=== PATIENT | female | born 2000 ===

== ENCOUNTER 2020-05-17 09:51 | Outpatient (REF) | payer MEDICAID, SELFPAY | END 2020-05-17 09:52 | disposition home or self-care (01) | LOC: HO.LAB 09:51 | PROVIDERS: Visit Provider Internal Medicine | DX: Z20.822 Contact with and (suspected) exposure to COVID-19 (principal) | CPT/HCPCS: 36415; C9803; U0003 ==

== ENCOUNTER 2020-05-17 10:01 | Emergency (ER) | payer MEDICAID, SELFPAY ==
[2020-05-17 10:15] VITALS: BP 119/57; PULSE 76; RESP 16; TEMP 37.1; O2SAT 99; BMI 29.9
--- NOTE | 2020-05-17 10:36 | PC.NURSE ---
TRIAGED AT BEDSIDE. AWAITING PROVIDER. HERE WITH COWORKER WITH SAME C/O.
--- NOTE | 2020-05-17 10:45 | PC.NURSE ---
SEEN BY PROVIDER AT THIS TIME
--- NOTE | 2020-05-17 17:36 | ED.GENADULT ---
HPI - General Adult General Chief complaint: Back Pain/Injury <ERICA Hernandez - Last Filed: 05/17/20 17:42> Stated complaint: neck pain <ERICA Hernandez - Last Filed: 05/17/20 17:42> Time Seen by Provider: 05/17/20 11:02 <ERICA Hernandez - Last Filed: 05/17/20 17:42> History of Present Illness HPI narrative: Patient complains of bilateral neck pain in both trapezius muscles and both sides of the neck, she woke up with it, there is no radiation of pain no trauma no injury no numbness no weakness no tingling no changes to bowel or bladder no fever <ERICA Hernandez Last Filed: 05/17/20 17:42> Related Data Home medications: Previous Rx's Medication Instructions Recorded cyclobenzaprine 5 mg PO TID PRN #10 tab 05/17/20 ibuprofen 600 mg PO Q6H PRN #20 tab 05/17/20 <ERICA Hernandez Last Filed: 05/17/20 17:42> Allergies/adverse reactions: Allergies Allergy/AdvReac Type Severity Reaction Status Date / Time No Known Allergies Allergy Verified 05/17/20 10:20 <ERICA Hernandez - Last Filed: 05/17/20 17:42> Review of Systems Review of Systems: Positive for neck pain Negatives are no fever no chills no dizziness no weakness no numbness no tingling no radiation of pain no headache no chest pain no shortness of breath <ERICA Hernandez - Last Filed: 05/17/20 17:42> [facility] Past Medical History Source: nursing notes reviewed <ERICA Hernandez - Last Filed: 05/17/20 17:42> Social History Social History: Social History Advance Directives: No Advance Directives Information Provided: No <ERICA Hernandez Last Filed: 05/17/20 17:42> Physical Exam Vital Signs: Vital Signs: Last Vital Signs Temp 98.7 F 05/17/20 10:15 Pulse 76 05/17/20 10:15 Resp 16 05/17/20 10:15 BP 119/57 L 05/17/20 10:15 Pulse Ox 99 05/17/20 10:15 Body Mass Index 29.9 <ERICA Hernandez - Last Filed: 05/17/20 17:42> Vital Signs: Last Vital Signs Temp 98.7 F 05/17/20 10:15 Pulse 76 05/17/20 10:15 Resp 16 05/17/20 10:15 BP 119/57 L 05/17/20 10:15 Pulse Ox 99 05/17/20 10:15 Body Mass Index 29.9 <Glen Aaron MD - Last Filed: 05/23/20 10:33> General appearance is no acute distress, comfortable and cooperative Head is normocephalic atraumatic The neck is supple however there is pain with lateral motion on either side there is tenderness to both left and right trapezius as well as left and right lateral neck areas, there is muscle spasm, there is no redness no warmth, there is no tenderness to any bony area The chest is clear to auscultation bilaterally with full symmetric breath sounds, chest wall is nontender The heart rate and rhythm regular no murmur Extremities is full range of motion x4, gait is normal, motor is 5/5 in negative turner apprentice strength in both hands and symmetrical Neuro no focal deficit motor 5/5 x4 in all extremities, gait is normal sensation is intact and symmetrical and verbal interaction is normal <ERICA Hernandez - Last Filed: 05/17/20 17:42> Course Course Course Narrative: Atraumatic muscle spasm in the neck, no trauma patient is treated for muscle pain of the neck <ERICA Hernandez - Last Filed: 05/17/20 17:42> I have reviewed the chart <Glen Aaron MD - Last Filed: 05/23/20 10:33> Discharge Plan Discharge Clinical Impression: Neck muscle strain <ERICA Hernandez - Last Filed: 05/17/20 17:42> Patient Disposition: Home, Self-Care <ERICA Hernandez Last Filed: 05/17/20 17:42> Additional Instructions: Pain should improve quickly If not getting better follow with primary care doctor Return to ER any time if worse <ERICA Hernandez - Last Filed: 05/17/20 17:42> Prescriptions: New ibuprofen 600 mg tablet 600 mg PO Q6H PRN (Reason: pain) Qty: 20 RF: 0 cyclobenzaprine 5 mg tablet 5 mg PO TID PRN (Reason: muscle spasm) Qty: 10 RF: 0 <ERICA Hernandez - Last Filed: 05/17/20 17:42> Stand Alone Forms: Work/School Release <ERICA Hernandez - Last Filed: 05/17/20 17:42> Interventions: ED Discharge Assessment Last Done: 05/17/20 11:11 <ERICA Hernandez - Last Filed: 05/17/20 17:42> Discharge Date/Time: 05/17/20 11:21 <ERICA Hernandez - Last Filed: 05/17/20 17:42>
== END 2020-05-17 11:21 | disposition home or self-care (01) ==
PROVIDERS: Emergency Provider Emergency Medicine; PCP Nurse Practitioner Primary Care
DX: S16.1XXA Strain of muscle, fascia and tendon at neck level, initial encounter (principal); M54.2 Cervicalgia; X58.XXXA Exposure to other specified factors, initial encounter; Y93.9 Activity, unspecified; Y92.9 Unspecified place or not applicable; Y99.9 Unspecified external cause status
CPT/HCPCS: 99283

== ENCOUNTER 2020-05-23 14:09 | Outpatient (REF) | payer MEDICAID, SELFPAY | END 2020-05-23 14:10 | disposition home or self-care (01) | LOC: HO.LAB 14:09 | PROVIDERS: Visit Provider Internal Medicine | DX: Z20.822 Contact with and (suspected) exposure to COVID-19 (principal) | CPT/HCPCS: 36415; C9803; U0003 ==

== ENCOUNTER 2020-06-07 10:26 | Emergency (ER) | payer MEDICAID, SELFPAY ==
--- NOTE | ~2020-06-07 | XR_ITS ---
EXAMINATION: BILATERAL TIBIA AND FIBULA. CLINICAL INFORMATION: Bilateral lower leg pain COMPARISON: None TECHNIQUE: 2 views each lower leg FINDINGS: LEFT LOWER LEG: There is no visible fracture, bony abnormality. No periosteal elevation or thickening. The soft tissues are normal. RIGHT LOWER LEG: There is no visible acute fracture, dislocation or subluxation. No bony erosive changes or periosteal thickening. The soft tissues are normal XR/XR tibia fibula LT 2V IMPRESSION: Unremarkable bilateral lower leg exam.
--- NOTE | ~2020-06-07 | US_ITS ---
EXAMINATION: US VENOUS ULTRASOUND WITH DOPPLER LOWER EXTREMITY, BILATERAL CLINICAL INFORMATION: Bilateral calf pain. COMPARISON: None TECHNIQUE: Ultrasound of the deep veins is performed from the hip to the calf with compression sonography and color and pulse Doppler assessment. Spectral analysis with color-flow imaging is performed. FINDINGS: RIGHT: There is normal venous compression and respiratory variation and augmented flow. The visualized common femoral vein, superficial femoral vein, profunda femoral vein, popliteal vein, and the trifurcation region shows no evidence of deep venous thrombosis. There is no popliteal cyst. LEFT: There is normal venous compression and respiratory variation and augmented flow. The visualized common femoral vein, superficial femoral vein, profunda femoral vein, popliteal vein, and the trifurcation region shows no evidence of deep venous thrombosis. There is no popliteal cyst. If the patient's symptoms persist, followup ultrasound in 5 days 7 days might be of value to exclude proximal propagation from a non-visualized calf vein. US/US venous duplex LE BI IMPRESSION: No evidence for deep venous thrombosis in the visualized veins of the bilateral lower extremities.
--- NOTE | ~2020-06-07 | XR_ITS ---
EXAMINATION: BILATERAL TIBIA AND FIBULA. CLINICAL INFORMATION: Bilateral lower leg pain COMPARISON: None TECHNIQUE: 2 views each lower leg FINDINGS: LEFT LOWER LEG: There is no visible fracture, bony abnormality. No periosteal elevation or thickening. The soft tissues are normal. RIGHT LOWER LEG: There is no visible acute fracture, dislocation or subluxation. No bony erosive changes or periosteal thickening. The soft tissues are normal XR/XR tibia fibula RT 2V IMPRESSION: Unremarkable bilateral lower leg exam.
[2020-06-07 10:47] VITALS: BP 136/84; PULSE 107; RESP 22; TEMP 37.2; O2SAT 97; BMI 29.0
[2020-06-07] MEDS: Ketorolac Tromethamine 15 MG/ML VIAL IVPUSH (11:51)
[2020-06-07] MEDS: Cyclobenzaprine HCl 5 MG TABLET PO (11:51)
[2020-06-07] MEDS: 0.9 % Sodium Chloride 1,000 ML 999 ML IV (11:51)
[2020-06-07 11:53] LABS: MANUAL DIFF FLAG NO
[2020-06-07 11:55] LABS: Basophils Percent Auto 0.3 % (0-2); Eosinophils Percent Auto 0.1 % (0-4); Hematocrit 38.8 % (37-47); Imm Gran Abs Auto 0.02 X10*3/uL (0.00-0.03); Imm Gran Pct Auto 0.2 % (0.0-0.4); Lymphocytes Absolute Auto 3.7 X10*3/uL (1.2-4.9); Lymphocytes Percent Auto 37.1 % (20-40); Mean Corpuscular HGB Conc 33.5 g/dl (31.0-35.0); Mean Corpuscular Hemoglobin 30.2 pg (27.0-33.0); Mean Platelet Volume 9.1 fL (9.4-12.3); Monocytes Absolute Auto 0.5 X10*3/uL (0.1-1.2); Monocytes Percent Auto 5.4 % (2-11); Neutrophils Absolute Auto 5.7 X10*3/uL (2.0-8.3); Neutrophils Percent Auto 56.9 % (45-73); Platelet Count 289 X10*3/uL (160-400); Red Blood Count 4.31 X10*6/uL (4.20-5.50); Red Cell Distribution Width 12.1 % (11.0-16.0)
[2020-06-07 12:01] LABS: INTERNATIONAL NORM RATIO 1.2 (0.9-1.1); Prothrombin Time 14.6 SEC (10.8-13.0)
--- NOTE | 2020-06-07 12:01 | ED.EXTPRO ---
HPI - Extremity Problem General Chief complaint: Extremity Problem Stated complaint: juan leg pain Source: patient Mode of arrival: ambulatory Limitations: no limitations History of Present Illness HPI Narrative: Patient presents to ED for bilateral leg pain that occurred after work. Patient states pain in both legs described as 10/10 and is painful to walk. 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 Patient denies any blunt trauma to lower extremities. Patient denies any swelling of lower extremities. Patient denies being on control pills. Patient denies any chest pain, shortness of breath, recent trauma, recent surgery, or any chest pain on inspiration. Patient denies coughing up blood. Related Data Previous Rx's Medication Instructions Recorded cyclobenzaprine 5 mg PO TID PRN #10 tab 05/17/20 ibuprofen 600 mg PO Q6H PRN #20 tab 05/17/20 cyclobenzaprine 10 mg PO TID PRN #15 tab 06/07/20 naproxen 500 mg PO BID PRN #20 tab 06/07/20 Allergies Allergy/AdvReac Type Severity Reaction Status Date / Time No Known Allergies Allergy Verified 05/17/20 10:20 Review of Systems Review of Systems: Yes all other systems are reviewed and are negative Constitutional: Constitutional: Reports as per HPI and Reports no additional constitutional complaints Eyes: Eyes: Reports as per HPI and Reports no additional eye complaints ENT: Reports system reviewed and no additional complaints, except as documented and Reports as per HPI Cardiovascular: Cardiovascular: Reports as per HPI and Reports no additional cardiovascular complaints Respiratory: Respiratory: Reports as per HPI and Reports no additional respiratory complaints Gastrointestinal: Gastrointestinal: Reports as per HPI and Reports no additional gastrointestinal complaints Genitourinary: Genitourinary: Reports no additional female genitourinary complaints and Reports as per HPI Musculoskeletal: Musculoskeletal: Reports no additional musculoskeletal complaints and Reports as per HPI Comments: Positive for lower extremity pain Neurologic: Reports system reviewed and no additional complaints, except as documented and Reports as per HPI Psychiatric: Psychiatric: Reports no additional psychiatric complaints and Reports as per HPI [facility] Past Medical History Medical History (Updated 06/07/20 @ 15:30 by ERICA Falcon) No known health problems Social History Social History Smoking Status: Unknown if ever smoked Use of substances other than those prescribed or required for medical reasons: Unknown Advance Directives: No Advance Directives Information Provided: No Physical Exam Vital Signs: Vital Signs: Last Vital Signs Temp 99.0 F 06/07/20 10:47 Pulse 70 06/07/20 15:00 Resp 18 06/07/20 15:00 BP 114/67 06/07/20 15:00 Pulse Ox 100 06/07/20 15:00 Body Mass Index 29.0 Const: General: cooperative, healthy appearing, comfortable, no acute distress, well developed, alert, awake and Physically active Orientation/consciousness: patient oriented x3 HENMT: Head: Yes normal to inspection, Yes No palpable skull fracture present, Yes normocephalic, Yes atraumatic and No abrasion Eyes: General: appearance normal, both eyes and all related structures Neck: Neck: Yes normal visual inspection, Yes full ROM, Yes no lymphadenopathy, Yes no meningeal signs, Yes trachea midline, Yes supple and No tender Chest: Chest palpation & inspection: normal inspection of the chest and normal palpation of entire chest wall Cardio: Jugular venous distension: no JVD Heart sounds: S1 normal heart sound present and S2 normal heart sound present GI: Inspection: Yes normal to inspection and No abdominal wall ecchymosis Palpation (GI): Soft to palpation, not firm, nontender, no guarding and not rigid : General: No CVA tenderness and Yes no CVA tenderness Back/Spine/Pelvis: Back: no CVA tenderness, No CVA tenderness and No back tenderness Skin: General skin exam: no rashes or lesions noted and elasticity normal Neuro: General: patient oriented x3, no meningeal signs and CN's II-XI intact bilaterally Cranial nerves: Yes CN's II-XII intact bilaterally Extrem: Other: Bilateral lower extremity: Negative for any swelling, pitting edema, redness, nodules, coldness, hot skin, bluish discoloration of toes, wounds, deformities, or ulcers. Positive for bilateral calf pain and anterior tibia fibular pain. Pain seemed out of proportion. Neuro/motor exam intact. Vascular exam is intact. Psych: Appearance: grossly normal, well kempt and not disheveled Course Course Course Narrative: Sent CPK to rule out rhabdomyolysis due to patient's pain being out of proportion and patient standing on her feet for 10 hours for shift. Also was sent for bilateral Doppler. Also check electrolytes make sure there is no signs of deficiency of electrolytes causing cramping legs Reevaluation(s) Reevaluation #1: Patient bilateral x-rays negative for any fractures. Patient is not in any rhabdomyolysis. CPK only 183. Electrolytes are normal including magnesium. Waiting for results of bilateral lower extremity ultrasound. Time: 11:46 Reevaluation #2: Patient lower extremity came back negative for any blood clots. Patient will be discharged as leg pain. History physical exam and diagnostic does not indicate DVT, cellulitis, arterial occlusion, erythema nosodum, and or fractures. Also negative for rhabdomyolysis. Time: 15:26 MDM - Extremity (Nontraumatic) MDM Narrative Medical decision making narrative: Bilateral leg pain Lab Data Result diagrams: 06/07/20 11:46 06/07/20 11:46 Labs: Lab Results 06/07/20 06/07/20 06/07/20 Range/Units 11:46 11:46 11:46 WBC 10.0 (4.8-10.8) X10*3/uL RBC 4.31 (4.20-5.50) X10*6/uL Hgb 13.0 (12.0-16.0) g/dl Hct 38.8 (37-47) % MCV 90.0 (80-98) fL MCH 30.2 (27.0-33.0) pg MCHC 33.5 (31.0-35.0) g/dl RDW 12.1 (11.0-16.0) % Plt Count 289 (160-400) X10*3/uL MPV 9.1 L (9.4-12.3) fL Immature Gran % (Auto) 0.2 (0.0-0.4) % Neut % (Auto) 56.9 (45-73) % Lymph % (Auto) 37.1 (20-40) % [place] % (Auto) 5.4 (2-11) % Eos % (Auto) 0.1 (0-4) % Baso % (Auto) 0.3 (0-2) % Lymph # (Auto) 3.7 (1.2-4.9) X10*3/uL [place] # (Auto) 0.5 (0.1-1.2) X10*3/uL Eos # (Auto) 0.0 (0.0-0.4) X10*3/uL Baso # (Auto) 0.0 (0.0-0.2) X10*3/uL Abs Immat Gran (auto) 0.02 (0.00-0.03) X10*3/uL Absolute Neuts (auto) 5.7 (2.0-8.3) X10*3/uL Absolute Nucleated RBC 0.000 (0.0-0.012) X10*3/uL Nucleated RBC % (auto) 0.0 (0.0-0.2) /100WBC PT 14.6 H (10.8-13.0) SEC INR 1.2 H (0.9-1.1) APTT 35.9 (24.1-38.0) SEC Sodium 141 (135-145) mmol/L Potassium 4.0 (3.3-5.1) mmol/L Chloride 105 (96-108) mmol/L Carbon Dioxide 27 (22-29) mmol/L Anion Gap 13 (12-20) BUN 13 (9-16) mg/dL Creatinine 0.79 (0.5-1.4) mg/dL Estim Creat Clear Calc 122.3 Estimated GFR > 60 Random Glucose 84 (60-115) mg/dL Calcium 10.0 (8.4-10.2) mg/dL Magnesium 2.0 (1.6-2.6) mg/dL Total Bilirubin 0.8 (0.0-1.0) mg/dL AST 19 (5-31) U/L ALT 18 (0-31) U/L Alkaline Phosphatase 50 (39-117) U/L Total Creatine Kinase 183 H (26-140) U/L Total Protein 8.1 H (6.5-8.0) g/dL Albumin 4.8 (3.5-5.0) g/dL Discharge Plan Discharge Clinical Impression: Bilateral leg pain Patient Disposition: Home, Self-Care Instructions: Leg Pain (ED) Additional Instructions: Return to the ED immediately no swelling of lower extremity, redness, warmth, coolness bluish discoloration of toes, chest pain, shortness of breath, fever, chills, or any other concerning symptoms. Prescriptions: New naproxen 500 mg tablet 500 mg PO BID PRN (Reason: pain) Qty: 20 RF: 0 cyclobenzaprine 10 mg tablet 10 mg PO TID PRN (Reason: pain) Qty: 15 RF: 0 No Action ibuprofen 600 mg tablet 600 mg PO Q6H PRN (Reason: pain) Qty: 20 RF: 0 cyclobenzaprine 5 mg tablet 5 mg PO TID PRN (Reason: muscle spasm) Qty: 10 RF: 0 Referrals: Lisa Sam CARE MANAGEMENT COORDINATOR [Primary Care Provider] - 2 days (Chronic leg pain exacerbation. X-rays negative for fracture. Ultrasound negative for DVT. Labs negative for rhabdomyolysis) Stand Alone Forms: Work/School Release Print Language: Iranian
[2020-06-07 12:04] LABS: Partial Thromboplastin Time 35.9 SEC (24.1-38.0)
[2020-06-07 12:26] LABS: Alanine Aminotransferase 18 U/L (0-31); Albumin Level 4.8 g/dL (3.5-5.0); Alkaline Phosphatase 50 U/L (39-117); Anion Gap 13 (12-20); Aspartate Amino Transferase 19 U/L (5-31); Bilirubin Total 0.8 mg/dL (0.0-1.0); Blood Urea Nitrogen 13 mg/dL (9-16); Carbon Dioxide 27 mmol/L (22-29); Chloride 105 mmol/L (96-108); Creatinine Clr Calc Pharmacy 122.3; Estimated Glomerular Filt Rate > 60; Glucose Random 84 mg/dL (60-115); Sodium 141 mmol/L (135-145); Total Protein 8.1 g/dL (6.5-8.0)
--- NOTE | 2020-06-07 14:00 | PC.NURSE ---
Pt transported to Ultrasound
[2020-06-07 15:00] VITALS: BP 114/67; PULSE 70; RESP 18; O2SAT 100
--- NOTE | 2020-06-07 15:00 | PC.NURSE ---
Pt returned from ultra sound.
== END 2020-06-07 15:51 | disposition home or self-care (01) ==
PROVIDERS: Physician Assistant; Emergency Provider Internal Medicine; PCP Nurse Practitioner Primary Care
DX: M79.605 Pain in left leg (principal); M79.604 Pain in right leg; Z79.899 Other long term (current) drug therapy
CPT/HCPCS: 36415; 73590; 80053; 82550; 83735; 85025; 85610; 85730; 93970; 96361; 96374; 99284; J1885

== ENCOUNTER 2021-04-01 10:05 | Emergency (ER) | payer MEDICAID, SELFPAY ==
--- NOTE | ~2021-04-01 | XR_ITS ---
EXAMINATION: XR FOOT, RIGHT CLINICAL INFORMATION: Pain right foot COMPARISON: None TECHNIQUE: AP, lateral, and oblique views of the right foot. FINDINGS: The bones and soft tissues are normal. No fracture. Alignment is anatomic. Joint spaces are maintained. XR/XR foot RT 2V IMPRESSION: Unremarkable right foot exam.
[2021-04-01 11:00] VITALS: BP 109/67; PULSE 83; RESP 18; TEMP 35.9; O2SAT 100; BMI 31.3
--- NOTE | 2021-04-01 11:37 | ED_ITS ---
HPI - Extremity Problem General Chief complaint: Extremity Problem Stated complaint: r foot pain Time Seen by Provider: 04/01/21 11:37 Source: patient Mode of arrival: ambulatory Limitations: no limitations History of Present Illness HPI Narrative: Patient has had increasing pain to her foot and developed a bump to the base of her first Metarsal phylangeal joint. Complaint: extremity pain Onset (ago): minute(s) Pain Consistency: constant Location: right Quality: burning Exacerbating factors: walking Related Data Previous Rx's Medication Instructions Recorded cyclobenzaprine 5 mg tablet 5 mg PO TID PRN #10 tab 05/17/20 ibuprofen 600 mg tablet 600 mg PO Q6H PRN #20 tab 05/17/20 cyclobenzaprine 10 mg tablet 10 mg PO TID PRN #15 tab 06/07/20 naproxen 500 mg tablet 500 mg PO BID PRN #20 tab 06/07/20 naproxen 500 mg tablet (Naprosyn) 500 mg PO BID #20 tab 04/01/21 Allergies Allergy/AdvReac Type Severity Reaction Status Date / Time No Known Allergies Allergy Verified 05/17/20 10:20 Review of Systems Constitutional: Constitutional: Reports no additional constitutional complaints Eyes: Eyes: Reports no additional eye complaints ENT: Denies dizziness Cardiovascular: Cardiovascular: Reports no additional cardiovascular complaints Respiratory: Respiratory: Reports as per HPI Gastrointestinal: Gastrointestinal: Reports no additional gastrointestinal complaints Genitourinary: Genitourinary: Reports no additional female genitourinary complaints Musculoskeletal: Musculoskeletal: Reports no additional musculoskeletal complaints Integumentary/Breasts: Skin/Breast: Denies rash Neurologic: Reports system reviewed and no additional complaints, except as documented, Denies dizziness and Denies Sensory deficit (Neuro) Psychiatric: Psychiatric: Denies anxiety [facility] Past Medical History Medical History No known health problems Social History Social History Advance Directives: No Advance Directives Information Provided: No Physical Exam Vital Signs: Vital Signs: Last Vital Signs Temp 96.6 F L 04/01/21 11:00 Pulse 83 04/01/21 11:00 Resp 18 04/01/21 11:00 BP 109/67 04/01/21 11:00 Pulse Ox 100 04/01/21 11:00 BMI result Body Mass Index 31.3 Const: General: healthy appearing Nutritional Appearance: average body habitus Orientation/consciousness: oriented to person and patient oriented x3 Limitations: no limitations HENMT: Head: Yes normal to inspection Ears: external ears normal General nose exam: Normal external nose present Mouth: Normal oral and palatal mucosa present and oropharynx normal Throat: Yes posterior oropharynx normal Eyes: General: appearance normal, both eyes and all related structures Neck: Other: supple Neck: Yes normal visual inspection Chest: Chest palpation & inspection: normal inspection of the chest Resp: Auscultation: clear to auscultation bilaterally Cardio: Jugular venous distension: no JVD Rate: regular rate Rhythm: regular rhythm Heart sounds: S1 normal heart sound present and S2 normal heart sound present GI: Inspection: Yes normal to inspection Palpation (GI): Soft to palpation, nontender and No hepatosplenomegaly present Auscultation: normal bowel sounds : General: Yes no CVA tenderness Back/Spine/Pelvis: Back: no CVA tenderness Skin: General skin exam: no rashes or lesions noted Neuro: General: oriented to person and patient oriented x3 Cranial nerves: Yes CN's II-XII intact bilaterally Motor exam (neuro): 5/5 motor strength present throughout Sensory Exam: No Sensory deficit (Neuro) Extrem: Other: firm hard swelling at the base of the first matatarsal and phylangeal joint, consistent with bunion. Psych: Appearance: grossly normal Course Reevaluation(s) Reevaluation #1: will refer patient to podiatry for bunion surgery Time: 11:46 MDM - Extremity (Nontraumatic) Imaging Data foot xray: Radiologist's impression: no fracture or jose deformity Discharge Plan Discharge Clinical Impression: Bunion of great toe of right foot Patient Disposition: Home, Self-Care Instructions: Bunion (ED) Prescriptions: New naproxen [Naprosyn] 500 mg tablet 500 mg PO BID Qty: 20 RF: 0 No Action naproxen 500 mg tablet 500 mg PO BID PRN (Reason: pain) Qty: 20 RF: 0 cyclobenzaprine 10 mg tablet 10 mg PO TID PRN (Reason: pain) Qty: 15 RF: 0 ibuprofen 600 mg tablet 600 mg PO Q6H PRN (Reason: pain) Qty: 20 RF: 0 cyclobenzaprine 5 mg tablet 5 mg PO TID PRN (Reason: muscle spasm) Qty: 10 RF: 0 Referrals: Alverto Carlson [Physician] - 1 week Interventions: ED Discharge Assessment Last Done: 04/01/21 12:08 Discharge Date/Time: 04/01/21 12:09
== END 2021-04-01 12:09 | disposition home or self-care (01) ==
PROVIDERS: Emergency Provider Emergency Medicine; PCP Nurse Practitioner Primary Care
DX: M21.611 Bunion of right foot (principal); M79.671 Pain in right foot
CPT/HCPCS: 73620; 99283

== ENCOUNTER 2021-04-25 12:46 | Emergency (ER) | payer MEDICAID, SELFPAY ==
[2021-04-25 13:04] VITALS: BP 130/70; BP 156/80; PULSE 105; PULSE 96; RESP 18; TEMP 37.5; O2SAT 98; BMI 29.9
--- NOTE | 2021-04-25 13:24 | ED.URI ---
HPI - URI/Sore Throat General Chief Complaint: Headache Stated Complaint: BRICE,RECENT NEGATIVE COVID TEST PER EMS Time Seen by Provider: 04/25/21 13:17 Source: patient Mode of arrival: EMS Limitations: no limitations History of Present Illness HPI Narrative: unvaccinated home rapid test negative 2 days ago has not taken any OTC medications MD elicited complaint: fever, nasal congestion and other (body aches) Onset (ago): day(s) (4) Consistency: progressively worsening Severity: moderate Description of mucous: clear Exacerbating factors: nothing Relieving factors: nothing Context: other (not vaccinated) Associated symptoms: fever, chills, myalgias, headache, nasal congestion and cough Treatments prior to arrival: none Related Data Previous Rx's Medication Instructions Recorded cyclobenzaprine 5 mg tablet 5 mg PO TID PRN #10 tab 05/17/20 ibuprofen 600 mg tablet 600 mg PO Q6H PRN #20 tab 05/17/20 cyclobenzaprine 10 mg tablet 10 mg PO TID PRN #15 tab 06/07/20 naproxen 500 mg tablet 500 mg PO BID PRN #20 tab 06/07/20 naproxen 500 mg tablet (Naprosyn) 500 mg PO BID #20 tab 04/01/21 ibuprofen 600 mg tablet 600 mg PO Q6H PRN #30 tab 04/25/21 ondansetron 4 mg disintegrating 4 mg PO Q8H PRN #20 tab 04/25/21 tablet Allergies Allergy/AdvReac Type Severity Reaction Status Date / Time No Known Allergies Allergy Verified 04/25/21 13:11 Review of Systems Review of Systems: Constitutional : positive Fever, positive Chills, positive fatigue, positive Malaise ENT/Mouth : positive sore throat, positive runny nose Eyes: No Discharge Cardiovascular : No Chest Pain, No SOB Respiratory : No Cough, No Sputum Gastrointestinal : No Nausea, No Vomiting, No Diarrhea Genitourinary : No Dysuria, No Urinary Frequency Musculoskeletal : positive Myalgia Skin : No rash Neuro : pos Headache PMFSH Past Medical History Attestation statement: The following information was validated with the patient. Medical History No known health problems Social History Social History (Updated 04/25/21 @ 13:35 by Georgina Dipesh, DO) Patient Tobacco Use Status: Current everyday Tobacco user Advance Directives: No Advance Directives Information Provided: No Patient : No Physical Exam Vital Signs: Vital Signs: Last Vital Signs Temp 99.5 F 04/25/21 13:04 Pulse 96 04/25/21 13:04 Resp 18 04/25/21 13:04 BP 130/70 04/25/21 13:04 Pulse Ox 98 04/25/21 13:04 BMI result Body Mass Index 29.9 Appearance: Alert. Oriented X3. No acute distress. Anxious Eyes: Pupils equal, round and reactive to light. ENT: Pharynx normal. Neck: Normal inspection. Neck supple. CVS: Normal heart rate and rhythm. Pulses normal. Respiratory: No respiratory distress. Breath sounds normal has mild bronchospastic cough Abdomen: Soft and non-tender. Skin: Skin warm and dry. Normal skin color. Normal skin turgor. Extremities: No lower extremity edema. No calf ttp Neuro: Oriented X 3. No motor deficit. No sensory deficit. MDM - URI/Sore Throat MDM Narrative Medical decision making narrative: 20 yo female unvaccinated here with headaches, viral syndrome, bronchospastic cough, clear lungs no hypoxia 99% on RA - did not take OTC medications - likely COVID. Can be managed as outpatient Discharge Plan Discharge Clinical Impression: COVID-19 Patient Disposition: Home, Self-Care Instructions: COVID-19 (Coronavirus Disease 2019) (ED) Additional Instructions: return to ED for any worsening symptoms or concerns if you are so short of breath you cannot walk to your bathroom please see medical care tylenol and motrin for fevers for cough or wheezing use 2 puffs on INH every 4 hours as needed Prescriptions: New ibuprofen 600 mg tablet 600 mg PO Q6H PRN (Reason: pain) Qty: 30 RF: 0 ondansetron 4 mg tablet,disintegrating 4 mg PO Q8H PRN (Reason: nausea and vomiting) Qty: 20 RF: 0 No Action naproxen 500 mg tablet 500 mg PO BID PRN (Reason: pain) Qty: 20 RF: 0 cyclobenzaprine 10 mg tablet 10 mg PO TID PRN (Reason: pain) Qty: 15 RF: 0 ibuprofen 600 mg tablet 600 mg PO Q6H PRN (Reason: pain) Qty: 20 RF: 0 cyclobenzaprine 5 mg tablet 5 mg PO TID PRN (Reason: muscle spasm) Qty: 10 RF: 0 naproxen [Naprosyn] 500 mg tablet 500 mg PO BID Qty: 20 RF: 0 Stand Alone Forms: Work/School Release
[2021-04-25 13:34] LABS: COVID-19 Test Positive (Negative); IDNOW Serial# 9DD0AD1C
[2021-04-25] MEDS: Albuterol Sulfate 90 MCG 8 GM INHALER 2 PUFF INHALE (13:38)
[2021-04-25 13:39] VITALS: PULSE 101; RESP 20; O2SAT 99
[2021-04-25] MEDS: Ibuprofen 600 MG TABLET PO (13:46)
[2021-04-25] MEDS: Acetaminophen 325 MG TABLET 650 MG PO (13:46)
[2021-04-25] MEDS: Ondansetron ODT 4 MG TAB.RAPDIS TRANSLINGU (13:47)
== END 2021-04-25 13:48 | disposition home or self-care (01) ==
PROVIDERS: Emergency Provider Emergency Medicine; PCP Nurse Practitioner Primary Care
DX: U07.1 COVID-19 (principal); R51.9 Headache, unspecified; M79.10 Myalgia, unspecified site; R05.9 Cough, unspecified; F17.200 Nicotine dependence, unspecified, uncomplicated; Z71.6 Tobacco abuse counseling; Z79.899 Other long term (current) drug therapy
CPT/HCPCS: 36415; 87635; 94640; 99283; 99284

== ENCOUNTER 2021-06-17 00:10 | Emergency (ER) | payer MEDICAID, SELFPAY ==
[2021-06-17 00:18] VITALS: BP 140/80; PULSE 91; RESP 16; TEMP 36.7; O2SAT 99; BMI 26.6
--- NOTE | 2021-06-17 00:52 | ED_ITS ---
HPI - Anxiety General Chief Complaint: ETOH/Substance Use Stated Complaint: DRUG USE Source: patient Mode of arrival: EMS Limitations: no limitations History of Present Illness HPI narrative: 20-year-old female presents via EMS for taking too many mushrooms. MD complaint: anxiety Onset (ago): hour(s) (Within the hour of arrival) Severity: mild Quality: constant Place: home History of similar episodes: No Provoking factors: other (Mushroom use) Relieving factors: nothing Exacerbating factors: other (Drug use) Associated symptoms: denies other symptoms Related Data Previous Rx's Medication Instructions Recorded cyclobenzaprine 5 mg tablet 5 mg PO TID PRN #10 tab 05/17/20 ibuprofen 600 mg tablet 600 mg PO Q6H PRN #20 tab 05/17/20 cyclobenzaprine 10 mg tablet 10 mg PO TID PRN #15 tab 06/07/20 naproxen 500 mg tablet 500 mg PO BID PRN #20 tab 06/07/20 naproxen 500 mg tablet (Naprosyn) 500 mg PO BID #20 tab 04/01/21 ibuprofen 600 mg tablet 600 mg PO Q6H PRN #30 tab 04/25/21 ondansetron 4 mg disintegrating 4 mg PO Q8H PRN #20 tab 04/25/21 tablet Allergies Allergy/AdvReac Type Severity Reaction Status Date / Time No Known Allergies Allergy Verified 04/25/21 13:11 Review of Systems Review of Systems: Constitutional: No Fever, No Chills ENT/Mouth: No sore throat, No Rhinorrhea Eyes: No Eye Pain, No Swelling, No Redness Cardiovascular: No Chest Pain, No SOB Respiratory: No Cough, No Sputum Gastrointestinal: No Nausea, No Vomiting, No Diarrhea, No abdominal Pain Genitourinary: No Dysuria, No Hematuria Musculoskeletal: No joint pain, No Myalgias, No Joint Swelling Skin: No Skin Lesions, No rash Neuro: No Weakness, No Numbness, No Loss of Consciousness, No Dizziness, No Headache Psych: Positive hallucinogenic use, positive Anxiety, No Depression, No SI/HI/AH/VH Heme/Lymph: No Bruising, No Bleeding,No Lymphadenopathy Endocrine: No Polyuria, No Polydipsia Yes all other systems are reviewed and are negative [facility] Past Medical History Attestation statement: The following information was validated with the patient. Source: old records reviewed Medical History No known health problems Social History Social History Patient Tobacco Use Status: Current everyday Tobacco user Patient : No Physical Exam Vital Signs: Vital Signs: Last Vital Signs Temp 98.0 F 06/17/21 00:18 Pulse 91 06/17/21 00:18 Resp 16 06/17/21 00:18 BP 140/80 H 06/17/21 00:18 Pulse Ox 99 06/17/21 00:18 BMI result Body Mass Index 26.6 Appearance: Alert. Oriented X3. Mild emotional distress. Eyes: Pupils equal, round and reactive to light. ENT: Pharynx normal. Neck: Normal inspection. Neck supple. CVS: Normal heart rate and rhythm. Pulses normal. Respiratory: No respiratory distress. Breath sounds normal. Abdomen: Soft and nontender. Skin: Skin warm and dry. Normal skin color. Normal skin turgor. Extremities: No lower extremity edema. Gait well-balanced well coordinated. Neuro: No motor deficit. No sensory deficit. Cranial nerves 2-12 intact. Course Course Course Narrative: 20-year-old female presents via EMS for anxiety related to hallucinogenic mushroom use. She stated that she used too many mushrooms, this is the 1st time ever using them. Patient does not have any other complaints at this time. Also does not have a sober ride home. Plan of care is to metabolize to freedom. Physician observation started at this time MDM - Anxiety MDM Narrative Medical decision making narrative: Hallucinogenic mushroom use Differential Diagnosis Differential diagnosis: Likely acute anxiety Medical Records Attestation: I reviewed the patient's medical records. 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 Thank you for choosing this emergency department for evaluation. Please follow-up with primary care physician as needed. Return to the emergency department for any new, concerning, or worsening symptoms. Prescriptions: No Action naproxen 500 mg tablet 500 mg PO BID PRN (Reason: pain) Qty: 20 0RF cyclobenzaprine 10 mg tablet 10 mg PO TID PRN (Reason: pain) Qty: 15 0RF Rx Instructions: side effect is drowsiness. Do not take at work or while driving. ibuprofen 600 mg tablet 600 mg PO Q6H PRN (Reason: pain) Qty: 20 0RF cyclobenzaprine 5 mg tablet 5 mg PO TID PRN (Reason: muscle spasm) Qty: 10 0RF naproxen [Naprosyn] 500 mg tablet 500 mg PO BID Qty: 20 0RF ibuprofen 600 mg tablet 600 mg PO Q6H PRN (Reason: pain) Qty: 30 0RF ondansetron 4 mg tablet,disintegrating 4 mg PO Q8H PRN (Reason: nausea and vomiting) Qty: 20 0RF
== END 2021-06-17 06:07 | disposition home or self-care (01) ==
LOC: HO.ED 01:19
PROVIDERS: Emergency Provider Internal Medicine; PCP Nurse Practitioner Primary Care
DX: F16.980 Hallucinogen use, unspecified with hallucinogen-induced anxiety disorder (principal); F17.200 Nicotine dependence, unspecified, uncomplicated; Z71.6 Tobacco abuse counseling; Z79.899 Other long term (current) drug therapy
CPT/HCPCS: 99283

== ENCOUNTER 2022-01-15 11:21 | Emergency (ER) | payer MEDICAID, SELFPAY ==
--- NOTE | ~2022-01-15 | XR_ITS ---
EXAMINATION: XR CHEST CLINICAL INFORMATION: Chest pain COMPARISON: None TECHNIQUE: Frontal view of the chest was obtained. FINDINGS: No acute finding. Lung jimenez are grossly clear. No infiltrate or effusion. The cardiac silhouette is within normal limits. The hilar structures are not pathologically enlarged. XR/XR chest 1V IMPRESSION: No acute finding.
[2022-01-15 13:05] VITALS: BP 113/70; BP 116/76; PULSE 73; PULSE 88; RESP 16; TEMP 36.2; O2SAT 93; O2SAT 99; BMI 32.3
--- NOTE | 2022-01-15 13:09 | ECG_ITS ---
Test Reason : chest pain Blood Pressure : / mmHG Vent. Rate : 071 BPM Atrial Rate : 071 BPM P-R Int : 138 ms QRS Dur : 074 ms QT Int : 394 ms P-R-T Axes : 001 037 047 degrees QTc Int : 428 ms Normal sinus rhythm Low voltage QRS Borderline ECG No previous ECGs available Referred By: Generic ED Physician Electronically Signed By:ANIBAL JOE
[2022-01-15 13:26] LABS: MANUAL DIFF FLAG NO
[2022-01-15 13:28] LABS: Basophils Absolute Auto 0.1 X10*3/uL (0.0-0.2); Basophils Percent Auto 0.7 % (0-2); Eosinophils Absolute Auto 0.2 X10*3/uL (0.0-0.4); Eosinophils Percent Auto 1.5 % (0-4); Hematocrit 38.4 % (37.0-47.0); Hemoglobin 12.7 g/dl (12.0-16.0); Imm Gran Abs Auto 0.04 X10*3/uL (0.00-0.03); Imm Gran Pct Auto 0.4 % (0.0-0.4); Lymphocytes Absolute Auto 3.5 X10*3/uL (1.2-4.9); Lymphocytes Percent Auto 34.3 % (20-40); Mean Corpuscular HGB Conc 33.1 g/dl (31.0-35.0); Mean Corpuscular Volume 90.8 fL (80.0-98.0); Mean Platelet Volume 8.8 fL (9.4-12.3); Monocytes Absolute Auto 0.5 X10*3/uL (0.1-1.2); Monocytes Percent Auto 5.1 % (2-11); Neutrophils Absolute Auto 5.9 x10*3/uL (2.0-8.3); Platelet Count 338 X10*3/uL (160-400); Red Blood Count 4.23 X10*6/uL (4.20-5.50); Red Cell Distribution Width 12.6 % (11.0-16.0); White Blood Count 10.2 X10*3/uL (4.8-10.8)
[2022-01-15 13:52] LABS: Anion Gap 14 (12-20); Blood Urea Nitrogen 10 mg/dL (9-16); Calcium 9.3 mg/dL (8.4-10.2); Carbon Dioxide 22 mmol/L (22-29); Chloride 107 mmol/L (96-108); Creatinine Clr Calc Pharmacy 125.1; Estimated Glomerular Filt Rate > 60; Glucose Random 95 mg/dL (60-115); Potassium 4.1 mmol/L (3.3-5.1); Sodium 139 mmol/L (135-145)
[2022-01-15 13:54] LABS: Appearance Urine Cloudy; Color Urine Yellow; Glucose Urine UA Negative (Negative); Leukocyte Esterase Urine Small (1+) (Negative); Nitrite Urine Negative (Negative); Specific Gravity - Urine >= 1.030 (1.005-1.025); UMIC TRIGGER UACC YES; UPreg QC Valid YES; Urine Blood Negative (Negative); Urine Ketones Trace mg/dL (Negative); Urine Pregnancy NEGATIVE (NEGATIVE); Urine Protein Trace mg/dL (Neg-Trace)
[2022-01-15 13:59] LABS: Troponin-I High Sensitivity < 3.5 ng/L (<3.5-17.0)
[2022-01-15 14:07] LABS: Bacteria Urine 4+ (None Seen); Hyaline Casts Urine 0-2 /LPF (0-2); RBC Urine 0-2 /HPF (0-2); UACC Culture Trigger YES; WBC Urine 0-5 /HPF (0-5)
--- NOTE | 2022-01-15 16:23 | ED_ITS ---
HPI - Chest Pain General Chief Complaint: Chest Pain Stated Complaint: CHEST PAIN W/INSPIRATION @ WORK Time Seen by Provider: 01/15/22 15:29 Source: patient Mode of arrival: ambulatory History of Present Illness HPI narrative: 21-year-old female with no significant past medical history presenting to the ED complaining of sudden onset substernal chest pressure/rib pain starting around 11:00 while sitting at work. Reports mild improvement in pain since onset still with some pressure, worse with deep breathing and palpation. Reports initial SOB, resolved at present. Denies cough, fever, nausea/vomiting, pain worse after eating, pedal edema, calf pain, recent travel, cigarette smoking, oral OCPs. MD complaint: chest pain Related Data Previous Rx's Medication Instructions Recorded cyclobenzaprine 5 mg tablet 5 mg PO TID PRN muscle spasm #10 05/17/20 tabs ibuprofen 600 mg tablet 600 mg PO Q6H PRN pain #20 tabs 05/17/20 cyclobenzaprine 10 mg tablet 10 mg PO TID PRN pain #15 tabs 06/07/20 naproxen 500 mg tablet 500 mg PO BID PRN pain #20 tabs 06/07/20 naproxen 500 mg tablet (Naprosyn) 500 mg PO BID #20 tabs 04/01/21 ibuprofen 600 mg tablet 600 mg PO Q6H PRN pain #30 tabs 04/25/21 ondansetron 4 mg disintegrating 4 mg PO Q8H PRN nausea and 04/25/21 tablet vomiting #20 tabs Allergies Allergy/AdvReac Type Severity Reaction Status Date / Time No Known Allergies Allergy Verified 04/25/21 13:11 Review of Systems Review of Systems: Constitutional: No Fever, No Chills, No Fatigue, No Malaise ENT/Mouth: No Ear Pain, No Nasal Congestion, No sore throat, No Rhinorrhea, No Swallowing Difficulty Eyes: No Eye Pain, No Swelling, No Redness Cardiovascular: + Chest Pain, + SOB (resolved), No Dyspnea on Exertion, No Orthopnea, No Edema, No Palpitations Respiratory: No Cough, No Sputum, No Wheezing, No Dyspnea Gastrointestinal: No Nausea, No Vomiting, No Diarrhea, No Constipation, No Abdominal pain Genitourinary: No Dysuria, No Urinary Frequency, No Hematuria, No Urinary Incontinence/retention, No Flank Pain Musculoskeletal: No joint pain, No Myalgias, No Joint Swelling Skin: No Skin Lesions, No rash Neuro: No Weakness, No Numbness, No Paresthesias, No Loss of Consciousness, No Dizziness, No Headache Yes all other systems are reviewed and are negative Constitutional: Constitutional: Reports as per [facility] Past Medical History Attestation statement: The following information was validated with the patient. Medical History No known health problems Social History Social History Patient Tobacco Use Status: Never used Tobacco Substance Use Type: Marijuana Advance Directives: No Advance Directives Information Provided: No Patient : No Physical Exam Vital Signs: Vital Signs: Last Vital Signs Temp 97.2 F 01/15/22 13:05 Pulse 72 01/15/22 16:42 Resp 12 01/15/22 16:42 BP 130/56 L 01/15/22 16:42 Pulse Ox 98 01/15/22 16:42 O2 Del Method 01/15/22 16:42 BMI result Body Mass Index 32.3 Const: General: cooperative, healthy appearing and no acute distress Orientation/consciousness: patient oriented x3 Limitations: no limitations HEENT: Head: Yes normal to inspection and Yes atraumatic Ears: hearing grossly normal bilaterally General nose exam: Normal external nose present Face and sinus: Yes normal facial exam Eyes: General: appearance normal, both eyes and all related structures EOM: EOMs intact bilaterally Neck: Neck: Yes normal visual inspection and Yes no meningeal signs Chest: Chest palpation & inspection: normal inspection of the chest, no crepitus and tenderness (Reproducing subjective complaint) sternum Resp: Effort & Inspection: normal respiratory effort and no respiratory distress Auscultation: clear to auscultation bilaterally, no rales, no rhonchi and no wheezes Cardio: Rate: regular rate Heart sounds: S1 normal heart sound present and S2 normal heart sound present GI: Inspection: Yes normal to inspection Palpation (GI): Soft to palpation, nontender, no guarding and not rigid Skin: Rashes: no rashes Wounds: no wounds Neuro: General: patient oriented x3, tone normal and no meningeal signs Gait exam (Neuro): Normal gait present Extrem: General: Yes normal to inspection, Yes no pedal edema and Yes no calf tenderness Course Course Course Narrative: -no leukocytosis. Initial troponin negative, will obtain 3 hour repeat -UA not infected/ negative XR chest 1V IMPRESSION: No acute finding. -1744--D-dimer WNL > PE unlikely -2nd troponin without rise, ID unlikely. >Results discussed with patient including worrisome signs and symptoms and strict return precautions, and when to return to the emergency department. They verbalized understanding and feel safe for discharge at this time. MDM - Chest Pain MDM Narrative Medical decision making narrative: 21-year-old female with no significant past medical history presenting to the ED complaining of sudden onset substernal chest pressure/rib pain starting around 11:00 while sitting at work. On exam vital signs stable, NAD, nontoxic appearing, chest pain reproducible on exam, lungs CTA, no pedal edema/calf tenderness. Abdomen soft/nontender. Concern for costochondritis vs PE vs pneumonia vs ACS vs ? Cholecystitis/lithiasis/pancreatitis although no abdominal tenderness on exam Plan: EKG, labs, CXR, reassess Differential Diagnosis Differential diagnosis: Likely atypical chest pain, costochondritis, chest pain and biliary colic Medical Records Data Attestation: I reviewed the patient's medical records. Lab Data Attestation: I reviewed the patient's lab results. Result diagrams: 01/15/22 13:22 01/15/22 13:22 Labs: Lab Results 01/15/22 01/15/22 01/15/22 Range/Units 13:21 13:22 13:22 WBC 10.2 (4.8-10.8) X10*3/uL RBC 4.23 (4.20-5.50) X10*6/uL Hgb 12.7 (12.0-16.0) g/dl Hct 38.4 (37.0-47.0) % MCV 90.8 (80.0-98.0) fL MCH 30.0 (27.0-33.0) pg MCHC 33.1 (31.0-35.0) g/dl RDW 12.6 (11.0-16.0) % Plt Count 338 (160-400) X10*3/uL MPV 8.8 L (9.4-12.3) fL Immature Gran % (Auto) 0.4 (0.0-0.4) % Neut % (Auto) 58.0 (45-73) % Lymph % (Auto) 34.3 (20-40) % [place] % (Auto) 5.1 (2-11) % Eos % (Auto) 1.5 (0-4) % Baso % (Auto) 0.7 (0-2) % Lymph # (Auto) 3.5 (1.2-4.9) X10*3/uL [place] # (Auto) 0.5 (0.1-1.2) X10*3/uL Eos # (Auto) 0.2 (0.0-0.4) X10*3/uL Baso # (Auto) 0.1 (0.0-0.2) X10*3/uL Abs Immat Gran (auto) 0.04 H (0.00-0.03) X10*3/uL Absolute Neuts (auto) 5.9 (2.0-8.3) x10*3/uL Absolute Nucleated RBC 0.000 (0.0-0.012) X10*3/uL Nucleated RBC % (auto) 0.0 (0.0-0.2) /100WBC D-Dimer High Sensitivty NG/ML Sodium 139 (135-145) mmol/L Potassium 4.1 (3.3-5.1) mmol/L Chloride 107 (96-108) mmol/L Carbon Dioxide 22 (22-29) mmol/L Anion Gap 14 (12-20) BUN 10 (9-16) mg/dL Creatinine 0.80 (0.5-1.4) mg/dL Estim Creat Clear Calc 125.1 Estimated GFR > 60 Random Glucose 95 (60-115) mg/dL Calcium 9.3 D (8.4-10.2) mg/dL Magnesium 2.1 (1.6-2.6) mg/dL Total Bilirubin 0.5 (0.0-1.0) mg/dL Direct Bilirubin 0.2 (0.0-0.5) mg/dL AST 19 (5-31) U/L ALT 20 (0-31) U/L Alkaline Phosphatase 65 D (39-117) U/L Troponin I High Sens < 3.5 (<3.5-17.0) ng/L B-Natriuretic Peptide 28 (<100) pg/mL Total Protein 7.4 (6.5-8.0) g/dL Albumin 4.3 (3.5-5.0) g/dL Lipase 13 (8-78) U/L Urine Color Urine Appearance Urine pH (5.0-9.0) Ur Specific [place] (1.005-1.025) Urine Protein (Neg-Trace) mg/dL Urine Glucose (UA) (Negative) mg/dL Urine Ketones (Negative) mg/dL Urine Blood (Negative) Urine Nitrite (Negative) Ur Leukocyte Esterase (Negative) Urine RBC (0-2) /HPF Urine WBC (0-5) /HPF Ur Squamous Epith Cells (0-2) /HPF Urine Bacteria (None Seen) Hyaline Casts (0-2) /LPF Urine Test (NEGATIVE) 01/15/22 01/15/22 01/15/22 Range/Units 13:44 13:44 17:20 WBC (4.8-10.8) X10*3/uL RBC (4.20-5.50) X10*6/uL Hgb (12.0-16.0) g/dl Hct (37.0-47.0) % MCV (80.0-98.0) fL MCH (27.0-33.0) pg MCHC (31.0-35.0) g/dl RDW (11.0-16.0) % Plt Count (160-400) X10*3/uL MPV (9.4-12.3) fL Immature Gran % (Auto) (0.0-0.4) % Neut % (Auto) (45-73) % Lymph % (Auto) (20-40) % [place] % (Auto) (2-11) % Eos % (Auto) (0-4) % Baso % (Auto) (0-2) % Lymph # (Auto) (1.2-4.9) X10*3/uL [place] # (Auto) (0.1-1.2) X10*3/uL Eos # (Auto) (0.0-0.4) X10*3/uL Baso # (Auto) (0.0-0.2) X10*3/uL Abs Immat Gran (auto) (0.00-0.03) X10*3/uL Absolute Neuts (auto) (2.0-8.3) x10*3/uL Absolute Nucleated RBC (0.0-0.012) X10*3/uL Nucleated RBC % (auto) (0.0-0.2) /100WBC D-Dimer High Sensitivty < 150 NG/ML Sodium (135-145) mmol/L Potassium (3.3-5.1) mmol/L Chloride (96-108) mmol/L Carbon Dioxide (22-29) mmol/L Anion Gap (12-20) BUN (9-16) mg/dL Creatinine (0.5-1.4) mg/dL Estim Creat Clear Calc Estimated GFR Random Glucose (60-115) mg/dL Calcium (8.4-10.2) mg/dL Magnesium (1.6-2.6) mg/dL Total Bilirubin (0.0-1.0) mg/dL Direct Bilirubin (0.0-0.5) mg/dL AST (5-31) U/L ALT (0-31) U/L Alkaline Phosphatase (39-117) U/L Troponin I High Sens (<3.5-17.0) ng/L B-Natriuretic Peptide (<100) pg/mL Total Protein (6.5-8.0) g/dL Albumin (3.5-5.0) g/dL Lipase (8-78) U/L Urine Color Yellow Urine Appearance Cloudy Urine pH 6.0 (5.0-9.0) Ur Specific [place] >= 1.030 H (1.005-1.025) Urine Protein Trace (Neg-Trace) mg/dL Urine Glucose (UA) Negative (Negative) mg/dL Urine Ketones Trace (Negative) mg/dL Urine Blood Negative (Negative) Urine Nitrite Negative (Negative) Ur Leukocyte Esterase Small (1+) H (Negative) Urine RBC 0-2 (0-2) /HPF Urine WBC 0-5 (0-5) /HPF Ur Squamous Epith Cells 11-20 (0-2) /HPF Urine Bacteria 4+ (None Seen) Hyaline Casts 0-2 (0-2) /LPF Urine Test NEGATIVE (NEGATIVE) 01/15/22 Range/Units 17:21 WBC (4.8-10.8) X10*3/uL RBC (4.20-5.50) X10*6/uL Hgb (12.0-16.0) g/dl Hct (37.0-47.0) % MCV (80.0-98.0) fL MCH (27.0-33.0) pg MCHC (31.0-35.0) g/dl RDW (11.0-16.0) % Plt Count (160-400) X10*3/uL MPV (9.4-12.3) fL Immature Gran % (Auto) (0.0-0.4) % Neut % (Auto) (45-73) % Lymph % (Auto) (20-40) % [place] % (Auto) (2-11) % Eos % (Auto) (0-4) % Baso % (Auto) (0-2) % Lymph # (Auto) (1.2-4.9) X10*3/uL [place] # (Auto) (0.1-1.2) X10*3/uL Eos # (Auto) (0.0-0.4) X10*3/uL Baso # (Auto) (0.0-0.2) X10*3/uL Abs Immat Gran (auto) (0.00-0.03) X10*3/uL Absolute Neuts (auto) (2.0-8.3) x10*3/uL Absolute Nucleated RBC (0.0-0.012) X10*3/uL Nucleated RBC % (auto) (0.0-0.2) /100WBC D-Dimer High Sensitivty NG/ML Sodium (135-145) mmol/L Potassium (3.3-5.1) mmol/L Chloride (96-108) mmol/L Carbon Dioxide (22-29) mmol/L Anion Gap (12-20) BUN (9-16) mg/dL Creatinine (0.5-1.4) mg/dL Estim Creat Clear Calc Estimated GFR Random Glucose (60-115) mg/dL Calcium (8.4-10.2) mg/dL Magnesium (1.6-2.6) mg/dL Total Bilirubin (0.0-1.0) mg/dL Direct Bilirubin (0.0-0.5) mg/dL AST (5-31) U/L ALT (0-31) U/L Alkaline Phosphatase (39-117) U/L Troponin I High Sens < 3.5 (<3.5-17.0) ng/L B-Natriuretic Peptide (<100) pg/mL Total Protein (6.5-8.0) g/dL Albumin (3.5-5.0) g/dL Lipase (8-78) U/L Urine Color Urine Appearance Urine pH (5.0-9.0) Ur Specific [place] (1.005-1.025) Urine Protein (Neg-Trace) mg/dL Urine Glucose (UA) (Negative) mg/dL Urine Ketones (Negative) mg/dL Urine Blood (Negative) Urine Nitrite (Negative) Ur Leukocyte Esterase (Negative) Urine RBC (0-2) /HPF Urine WBC (0-5) /HPF Ur Squamous Epith Cells (0-2) /HPF Urine Bacteria (None Seen) Hyaline Casts (0-2) /LPF Urine Test (NEGATIVE) ECG Data ECG #1: Attestation: I personally reviewed and interpreted this ECG as follows: ECG interpretation date: 01/15/22 ECG interpretation time: 13:16 Prior ECG tracings: not available for review Interpretation: EKG normal sinus rhythm. Low-voltage QRS. Rate of 71. QTC 428. No STEMI. Discharge Plan Discharge Clinical Impression: Chest pain Patient Disposition: Home, Self-Care Instructions: Chest Pain (DC) Additional Instructions: Your blood work and chest x-ray were reassuring today in the emergency department Please have close follow-up with your doctor, and Cardiology call to make an appointment If symptoms persist or worsen, develop constant worsening chest pain, shortness of breath, swelling in her legs, fever please return to the ED Prescriptions: No Action naproxen 500 mg tablet 500 mg PO BID PRN (Reason: pain) Qty: 20 0RF cyclobenzaprine 10 mg tablet 10 mg PO TID PRN (Reason: pain) Qty: 15 0RF Rx Instructions: side effect is drowsiness. Do not take at work or while driving. ibuprofen 600 mg tablet 600 mg PO Q6H PRN (Reason: pain) Qty: 20 0RF cyclobenzaprine 5 mg tablet 5 mg PO TID PRN (Reason: muscle spasm) Qty: 10 0RF naproxen [Naprosyn] 500 mg tablet 500 mg PO BID Qty: 20 0RF ibuprofen 600 mg tablet 600 mg PO Q6H PRN (Reason: pain) Qty: 30 0RF ondansetron 4 mg tablet,disintegrating 4 mg PO Q8H PRN (Reason: nausea and vomiting) Qty: 20 0RF Referrals: [facility] [place] Cardiovascular Services [Provider Group] Lisa Sam TECHNICAL SERVICES SPECIALIST [Primary Care Provider] - 2 days Stand Alone Forms: Work/School Release
[2022-01-15 16:42] VITALS: BP 130/56; PULSE 72; PULSE 84; RESP 12; O2SAT 98
[2022-01-15 16:50] LABS: Alanine Aminotransferase 20 U/L (0-31); Albumin Level 4.3 g/dL (3.5-5.0); Alkaline Phosphatase 65 U/L (39-117); Aspartate Amino Transferase 19 U/L (5-31); Bilirubin Direct 0.2 mg/dL (0.0-0.5); Bilirubin Total 0.5 mg/dL (0.0-1.0); Lipase 13 U/L (8-78); Magnesium 2.1 mg/dL (1.6-2.6); Total Protein 7.4 g/dL (6.5-8.0)
[2022-01-15 16:57] LABS: B Type Natriuretic Peptide 28 pg/mL (<100)
[2022-01-15 17:40] LABS: D Dimer High Sensitivity < 150 NG/ML
[2022-01-15 17:48] LABS: Troponin-I High Sensitivity < 3.5 ng/L (<3.5-17.0)
--- NOTE | 2022-01-15 18:25 | PC.NURSE ---
Pt not at bedside upon discharge at 1815 to obtain discharge instructions/paperwork. Discharge paperwork along with work/school note mailed to pt at the address on file.
== END 2022-01-15 18:27 | disposition home or self-care (01) ==
PROVIDERS: Physician Assistant; Emergency Provider Emergency Medicine Emergency Medical Services; PCP Nurse Practitioner Primary Care
DX: R07.9 Chest pain, unspecified (principal); R06.02 Shortness of breath
CPT/HCPCS: 36415; 71045; 80048; 80076; 81001; 81025; 83690; 83735; 83880; 84484; 85025; 85379; 87086; 93005; 99283; 99285

== ENCOUNTER 2023-04-21 09:37 | Emergency (ER) | payer SELFPAY ==
--- NOTE | ~2023-04-21 | US_ITS ---
EXAMINATION: US ABDOMEN LIMITED CLINICAL INFORMATION: Right upper quadrant pain and tenderness. COMPARISON: None available. TECHNIQUE: Real-time imaging of the right upper quadrant abdominal viscera. FINDINGS: PANCREAS: The pancreas is not well seen due to bowel gas. LIVER: The liver is normal in size. The liver contour is normal. There is mild diffuse increased liver parenchymal echogenicity, consistent with mild hepatic steatosis. No focal hepatic lesion. There is no intrahepatic biliary duct dilatation seen. GALLBLADDER: 1.9 cm mobile gallstone is seen within the gallbladder. The gallbladder is physiologically distended without evidence of sludge, polyps, wall thickening or pericholecystic fluid. No sonographic Benitez's sign. COMMON BILE DUCT: Normal in caliber measuring 0.3 cm in diameter. RIGHT KIDNEY: Normal. No hydronephrosis. No renal calculi or focal parenchymal lesions. The kidney measures 10.2 cm in maximum dimension. FREE FLUID: None. US/US abdomen limited IMPRESSION: 1. Mild hepatic steatosis. 2. Cholelithiasis. 3. The pancreas is not well seen due to bowel gas.
[2023-04-21 10:05] VITALS: BP 120/73; PULSE 72; RESP 18; TEMP 36.4; O2SAT 98; BMI 33.9
[2023-04-21 10:29] LABS: MANUAL DIFF FLAG NO
[2023-04-21 10:31] LABS: Basophils Percent Auto 0.6 % (0-2); Eosinophils Absolute Auto 0.2 X10*3/uL (0.0-0.4); Eosinophils Percent Auto 2.1 % (0-4); Hematocrit 37.5 % (37.0-47.0); Hemoglobin 12.3 g/dl (12.0-16.0); Imm Gran Abs Auto 0.02 X10*3/uL (0.00-0.03); Imm Gran Pct Auto 0.3 % (0.0-0.4); Lymphocytes Absolute Auto 2.4 X10*3/uL (1.2-4.9); Lymphocytes Percent Auto 33.1 % (20-40); Mean Corpuscular HGB Conc 32.8 g/dl (31.0-35.0); Mean Corpuscular Hemoglobin 29.9 pg (27.0-33.0); Mean Corpuscular Volume 91.2 fL (80.0-98.0); Mean Platelet Volume 8.7 fL (9.4-12.3); Monocytes Absolute Auto 0.4 X10*3/uL (0.1-1.2); Monocytes Percent Auto 6.1 % (2-11); Neutrophils Absolute Auto 4.2 x10*3/uL (2.0-8.3); Neutrophils Percent Auto 57.8 % (45-73); Platelet Count 310 X10*3/uL (160-400); Red Blood Count 4.11 X10*6/uL (4.20-5.50); Red Cell Distribution Width 12.2 % (11.0-16.0); White Blood Count 7.3 X10*3/uL (4.8-10.8)
[2023-04-21 10:33] LABS: Appearance Urine Cloudy; Color Urine Yellow; Glucose Urine UA Negative (Negative); Leukocyte Esterase Urine Small (1+) (Negative); Nitrite Urine Negative (Negative); PH 5.5 (5.0-9.0); Specific Gravity - Urine >= 1.030 (1.005-1.025); UMIC TRIGGER UACC YES; Urine Blood Negative (Negative); Urine Ketones Trace mg/dL (Negative); Urine Protein Trace mg/dL (Neg-Trace)
[2023-04-21 10:35] LABS: UPreg QC Valid YES; Urine Pregnancy NEGATIVE (NEGATIVE)
[2023-04-21 10:38] LABS: Bacteria Urine 2+ (None Seen); Hyaline Casts Urine 0-2 /LPF (0-2); RBC Urine 0-2 /HPF (0-2); Squamous Epithelial Cell Urine >20 /HPF (0-2); UACC Culture Trigger YES
--- NOTE | 2023-04-21 10:47 | ED_ITS ---
HPI - General Adult General Chief complaint: Abdominal Pain Stated complaint: Stomach Pain Radiating To Back Time Seen by Provider: 04/21/23 10:32 History of Present Illness HPI narrative: The patient is a 22-year-old female who reports epigastric pain starting yesterday afternoon at 16:00. The pain radiates to her back and her right shoulder. She says that she has had similar pains in the past but they have been less severe and did not last as long. She has had 2 or 3 similar episodes with the last episode being about a month ago. She says that the pain that started yesterday did not seem to be associated with eating. However the pain has been quite persistent since yesterday at 16:00 she finally came to the emergency room this morning. She has had nausea but no vomiting. She has a Nexplanon device for control. She has no history of abdominal surgeries. She is a smoker. No fevers. Related Data Previous Rx's Medication Instructions Recorded cyclobenzaprine 5 mg tablet 5 mg PO TID PRN muscle spasm #10 05/17/20 tabs ibuprofen 600 mg tablet 600 mg PO Q6H PRN pain #20 tabs 05/17/20 cyclobenzaprine 10 mg tablet 10 mg PO TID PRN pain #15 tabs 06/07/20 naproxen 500 mg tablet 500 mg PO BID PRN pain #20 tabs 06/07/20 naproxen 500 mg tablet (Naprosyn) 500 mg PO BID #20 tabs 04/01/21 ibuprofen 600 mg tablet 600 mg PO Q6H PRN pain #30 tabs 04/25/21 ondansetron 4 mg disintegrating 4 mg PO Q8H PRN nausea and 04/25/21 tablet vomiting #20 tabs Allergies Allergy/AdvReac Type Severity Reaction Status Date / Time No Known Allergies Allergy Verified 04/21/23 10:08 [facility] Past Medical History Medical History No known health problems Social History Social History Patient Tobacco Use Status: Never used Tobacco Smoked in Last 30 Days: Yes Use of substances other than those prescribed or required for medical reasons: Yes Substance Use Type: Marijuana Substance Use Frequency: Daily Advance Directives: No Physical Exam ED Vital Signs: Vital Signs - 24 hr 04/21/23 10:05 Temperature 97.5 F Pulse Rate 72 Respiratory Rate 18 Blood Pressure 120/73 Pulse Oximetry 98 Oxygen Delivery Method Room Air BMI result Body Mass Index 33.9 Medications Administered Discontinued Medications Generic Name Dose Route Start Last Admin Trade Name Oseiq PRN Reason Stop Dose Admin Sodium Chloride 1,000 mls @ 999 mls/hr 04/21/23 10:45 04/21/23 12:25 Ns IV 04/21/23 11:45 Infused .Q1H1M ANGELIQUE Infusion Promethazine HCl 12.5 mg/ 50.5 mls @ 202 mls/hr 04/21/23 10:43 04/21/23 11:35 Sodium Chloride IV 04/21/23 10:44 Infused ONCE ONE Infusion Ketorolac Tromethamine 15 mg 04/21/23 10:43 04/21/23 11:00 Ketorolac Tromethamine 15 Mg/Ml Vial IVPUSH 04/21/23 10:44 15 mg ONCE ONE Administration Morphine Sulfate 4 mg 04/21/23 10:43 04/21/23 11:00 Morphine Sulfate 4 Mg/Ml Cartridge IVPUSH 04/21/23 10:44 4 mg ONCE ONE Administration Protocol Medical Decision Making Medical Decision Making MDM Narrative: Patient is a very pleasant 22-year-old who presents with epigastric pain that radiates to the right shoulder and also to the back. Clinically this seems very consistent with possible biliary colic. I performed a bedside ultrasound that I thought showed a large gallstone. The patient was sent for a formal ultrasound in Radiology which describes a 1.9 cm gallstone which was mobile. No other findings to suggest cholecystitis. The patient was feeling much better after dose of Toradol and morphine. Perhaps the patient has gallstone was initially impacted but subsequently became mobile. The patient's labs are otherwise reassuring. She looks well enough for outpatient management. She will be advised to follow a low-fat diet until she follows up with General surgery to discuss possible cholecystectomy. She should return if worse. Lab Data 04/21/23 10:21 04/21/23 10:21 Labs: Lab Results 04/21/23 04/21/23 Range/Units 10:18 10:21 WBC 7.3 (4.8-10.8) X10*3/uL RBC 4.11 L (4.20-5.50) X10*6/uL Hgb 12.3 (12.0-16.0) g/dl Hct 37.5 (37.0-47.0) % MCV 91.2 (80.0-98.0) fL MCH 29.9 (27.0-33.0) pg MCHC 32.8 (31.0-35.0) g/dl RDW 12.2 (11.0-16.0) % Plt Count 310 (160-400) X10*3/uL MPV 8.7 L (9.4-12.3) fL Immature Gran % (Auto) 0.3 (0.0-0.4) % Neut % (Auto) 57.8 (45-73) % Lymph % (Auto) 33.1 (20-40) % [place] % (Auto) 6.1 (2-11) % Eos % (Auto) 2.1 (0-4) % Baso % (Auto) 0.6 (0-2) % Lymph # (Auto) 2.4 (1.2-4.9) X10*3/uL [place] # (Auto) 0.4 (0.1-1.2) X10*3/uL Eos # (Auto) 0.2 (0.0-0.4) X10*3/uL Baso # (Auto) 0.0 (0.0-0.2) X10*3/uL Abs Immat Gran (auto) 0.02 (0.00-0.03) X10*3/uL Absolute Neuts (auto) 4.2 (2.0-8.3) x10*3/uL Absolute Nucleated RBC 0.000 (0.0-0.012) X10*3/uL Nucleated RBC % (auto) 0.0 (0.0-0.2) /100WBC Sodium 138 (135-145) mmol/L Potassium 4.3 (3.3-5.1) mmol/L Chloride 109 H (96-108) mmol/L Carbon Dioxide 25 (22-29) mmol/L Anion Gap 8 L (12-20) BUN 14 (9-16) mg/dL Creatinine 0.74 (0.5-1.4) mg/dL Estim Creat Clear Calc 137.5 Estimated GFR > 60 Random Glucose 97 (60-115) mg/dL Calcium 9.0 (8.4-10.2) mg/dL Total Bilirubin 0.5 (0.0-1.0) mg/dL Direct Bilirubin 0.2 (0.0-0.5) mg/dL AST 15 (5-31) U/L ALT 13 (0-31) U/L Alkaline Phosphatase 59 (39-117) U/L C-Reactive Protein 0.13 (< or = 0.50) mg/dL Total Protein 7.2 (6.5-8.0) g/dL Albumin 4.1 (3.5-5.0) g/dL Lipase 11 (8-78) U/L Urine Color Yellow Urine Appearance Cloudy Urine pH 5.5 (5.0-9.0) Ur Specific [place] >= 1.030 H (1.005-1.025) Urine Protein Trace (Neg-Trace) mg/dL Urine Glucose (UA) Negative (Negative) mg/dL Urine Ketones Trace (Negative) mg/dL Urine Blood Negative (Negative) Urine Nitrite Negative (Negative) Ur Leukocyte Esterase Small (1+) H (Negative) Urine RBC 0-2 (0-2) /HPF Urine WBC 6-10 H (0-5) /HPF Ur Squamous Epith Cells >20 (0-2) /HPF Urine Bacteria 2+ (None Seen) Hyaline Casts 0-2 (0-2) /LPF Urine Test NEGATIVE (NEGATIVE) Discharge Plan Discharge Clinical Impression: Biliary colic, Cholelithiasis Patient Disposition: Home, Self-Care Instructions: Biliary Colic (ED), Gallstones (ED) Additional Instructions: I think the pain you were experiencing was caused by of gallstone in your gallbladder. This means that you will need to see a surgeon and discuss the prospect of surgery to have your gallbladder removed. Therefore please contact the general surgeon, Dr. Enriquez, whose contact information has been provided. All the office and explained that you had significant amount of pain related to a gallstone. In the meantime you should modify your diet in hopes of preventing another episode like you had today. Please avoid fatty foods and spicy foods. Also try to reduce smoking. You may also contact your primary care doctor's office at any time for additional advice as needed. Return to the emergency room if you are significantly worse at any time. Prescriptions: No Action naproxen 500 mg tablet 500 mg PO BID PRN (Reason: pain) Qty: 20 0RF cyclobenzaprine 10 mg tablet 10 mg PO TID PRN (Reason: pain) Qty: 15 0RF Rx Instructions: side effect is drowsiness. Do not take at work or while driving. ibuprofen 600 mg tablet 600 mg PO Q6H PRN (Reason: pain) Qty: 20 0RF cyclobenzaprine 5 mg tablet 5 mg PO TID PRN (Reason: muscle spasm) Qty: 10 0RF naproxen [Naprosyn] 500 mg tablet 500 mg PO BID Qty: 20 0RF ibuprofen 600 mg tablet 600 mg PO Q6H PRN (Reason: pain) Qty: 30 0RF ondansetron 4 mg tablet,disintegrating 4 mg PO Q8H PRN (Reason: nausea and vomiting) Qty: 20 0RF Referrals: Elia Enriquez MD [Physician] - (Biliary colic, cholelithiasis) Lisa Sam NP [Primary Care Provider] - (Biliary colic) Stand Alone Forms: Work/School Release Interventions: ED Discharge Assessment Last Done: 04/21/23 13:11 Discharge Date/Time: 04/21/23 13:11
[2023-04-21] MEDS: Ketorolac Tromethamine 15 MG/ML VIAL IVPUSH (11:00)
[2023-04-21] MEDS: Morphine Sulfate 4 MG/ML CARTRIDGE IVPUSH (11:00)
[2023-04-21 11:02] LABS: Alanine Aminotransferase 13 U/L (0-31); Albumin Level 4.1 g/dL (3.5-5.0); Alkaline Phosphatase 59 U/L (39-117); Anion Gap 8 (12-20); Aspartate Amino Transferase 15 U/L (5-31); Bilirubin Direct 0.2 mg/dL (0.0-0.5); Bilirubin Total 0.5 mg/dL (0.0-1.0); Blood Urea Nitrogen 14 mg/dL (9-16); Carbon Dioxide 25 mmol/L (22-29); Chloride 109 mmol/L (96-108); Creatinine Clr Calc Pharmacy 137.5; Estimated Glomerular Filt Rate > 60; Glucose Random 97 mg/dL (60-115); Lipase 11 U/L (8-78); Potassium 4.3 mmol/L (3.3-5.1); Sodium 138 mmol/L (135-145); Total Protein 7.2 g/dL (6.5-8.0)
[2023-04-21] MEDS: 0.9 % Sodium Chloride 1,000 ML 999 ML IV (11:03)
[2023-04-21 11:18] LABS: C Reactive Protein 0.13 mg/dL (< or = 0.50)
--- NOTE | 2023-04-21 12:25 | PC.NURSE ---
Patient reports no longer having abdominal/back pain after medications.
== END 2023-04-21 13:11 | disposition home or self-care (01) ==
PROVIDERS: Emergency Provider Emergency Medicine; PCP Nurse Practitioner Primary Care
DX: K80.20 Calculus of gallbladder without cholecystitis without obstruction (principal); M25.511 Pain in right shoulder; M54.50 Low back pain, unspecified; R10.13 Epigastric pain; R11.2 Nausea with vomiting, unspecified; Z79.899 Other long term (current) drug therapy
CPT/HCPCS: 36415; 76705; 80048; 80076; 81001; 81025; 83690; 85025; 86140; 87086; 96361; 96365; 96375; 99284; J1885; J2270; J2550

== ENCOUNTER 2023-06-10 09:31 | Outpatient (AMB) | payer SELFPAY ==
--- NOTE | 2023-06-10 09:06 | A.OFFVIS_ITS ---
Intake Vital Signs 06/10/23 09:07 Height 5 ft 6 in Weight 200 lb BMI 32.3 BP 125/64 Blood Pressure Location Rt brachial Position Sitting Pulse 79 Intake Visit Reasons: ER F/U Stomach Pain Radiating To Back Intake Note: Patient referred after ER visit on 04-21-23 for epigastric pain. Has had multiple pain episodes for the past couple of months. Reports pain gets worse after eating. Patient c/o: abd pain that radiates to back. Nausea but no vomiting. Abd US on 04-21-23. Respiratory Care Technician Required: No Accompanied by: Self / Same As Patient Allergies No Known Allergies Allergy (Verified 06/10/23 09:06) HPI HPI Comments History of Present Illness Details Patient has 1-2 year history of right upper quadrant pain radiating around to her back post meals. She was recently seen emergency department and workup including sonogram demonstrated cholelithiasis. Patient denies any other GI issues or complaints. She has tolerating a diet. He is having regular bowel habits. She has never been jaundiced before. Chart was reviewed and patient evaluated [facility] Medical History No known health problems Surgical History (Updated 06/10/23 @ 09:48 by Elia Enriquez MD) History of tonsillectomy Social History (Updated 06/10/23 @ 09:35 by GRETEL Hernández) Patient Tobacco Use Status: Never used Tobacco Cigarettes Per Day: 1 Substance Use Type: Marijuana Physical Exam Vital Signs: Last Vital Signs Pulse 79 06/10/23 09:07 BP 125/64 06/10/23 09:07 BMI result Body Mass Index 32.3 Eyes Other: Anicteric Chest Other: Chest breath sounds bilaterally, HS 1 in 2 GI Other: Abdomen soft, corpulent, benign Assessment & Plan Assessment & Plan (1) Biliary colic: Code(s): K80.50 - Calculus of bile duct without cholangitis or cholecystitis without obstruction Plan Risks, benefits, alternatives of laparoscopic possible open cholecystectomy were reviewed with the patient and included but not limited to bleeding, infection, recurrence of symptoms, numbness, pain, scarring, bowel or bile duct injury or leak and the patient wishes to proceed. All questions answered. Arrangements were made for this. Coding Level of Care Code New Pt Level 5 (07917) Diagnoses Biliary colic K80.50
[2023-06-10 09:07] VITALS: BP 125/64; PULSE 79; BMI 32.3
== END 2023-06-10 10:13 | disposition home or self-care (01) ==
LOC: HO.HGS 09:31
PROVIDERS: PCP Nurse Practitioner Primary Care; Visit Provider Surgery
DX: K80.50 Calculus of bile duct without cholangitis or cholecystitis without obstruction (principal)
CPT/HCPCS: 99204

== ENCOUNTER → 2023-06-10 09:31 | Outpatient (BNVA) | payer OTHER, SELFPAY | PROVIDERS: PCP Nurse Practitioner Primary Care; Visit Provider Surgery | DX: K80.50 Calculus of bile duct without cholangitis or cholecystitis without obstruction (principal) | CPT/HCPCS: 99202 ==

== ENCOUNTER 2023-06-24 11:25 | Outpatient (REF) | payer OTHER, SELFPAY ==
[2023-06-24 13:42] LABS: MANUAL DIFF FLAG NO
[2023-06-24 13:59] LABS: Basophils Absolute Auto 0.1 X10*3/uL (0.0-0.2); Basophils Percent Auto 0.7 % (0-2); Eosinophils Absolute Auto 0.1 X10*3/uL (0.0-0.4); Eosinophils Percent Auto 1.4 % (0-4); Hematocrit 37.4 % (37.0-47.0); Hemoglobin 12.3 g/dl (12.0-16.0); Imm Gran Abs Auto 0.03 X10*3/uL (0.00-0.03); Imm Gran Pct Auto 0.4 % (0.0-0.4); Lymphocytes Absolute Auto 2.6 X10*3/uL (1.2-4.9); Lymphocytes Percent Auto 34.8 % (20-40); Mean Corpuscular HGB Conc 32.9 g/dl (31.0-35.0); Mean Corpuscular Hemoglobin 30.2 pg (27.0-33.0); Mean Corpuscular Volume 91.9 fL (80.0-98.0); Mean Platelet Volume 9.5 fL (9.4-12.3); Monocytes Absolute Auto 0.5 X10*3/uL (0.1-1.2); Monocytes Percent Auto 7.3 % (2-11); Neutrophils Absolute Auto 4.1 x10*3/uL (2.0-8.3); Neutrophils Percent Auto 55.4 % (45-73); Platelet Count 319 X10*3/uL (160-400); Red Blood Count 4.07 X10*6/uL (4.20-5.50); Red Cell Distribution Width 12.8 % (11.0-16.0); White Blood Count 7.4 X10*3/uL (4.8-10.8)
[2023-06-24 14:22] LABS: Alanine Aminotransferase 17 U/L (0-31); Alkaline Phosphatase 50 U/L (39-117); Anion Gap 9 (12-20); Aspartate Amino Transferase 18 U/L (5-31); Bilirubin Total 0.6 mg/dL (0.0-1.0); Blood Urea Nitrogen 13 mg/dL (9-16); Calcium 9.2 mg/dL (8.4-10.2); Carbon Dioxide 23 mmol/L (22-29); Chloride 107 mmol/L (96-108); Estimated Glomerular Filt Rate > 60; Glucose Random 95 mg/dL (60-115); Potassium 4.2 mmol/L (3.3-5.1); Sodium 135 mmol/L (135-145); Total Protein 7.2 g/dL (6.5-8.0)
[2023-06-25 05:57] LABS: CT PCR NOT DETECTED (Not Detect.); NG PCR NOT DETECTED (Not Detect.)
== END 2023-06-24 11:26 | disposition home or self-care (01) ==
LOC: HO.HHCL 11:25
PROVIDERS: Visit Provider Nurse Practitioner Family
DX: K80.20 Calculus of gallbladder without cholecystitis without obstruction (principal); R82.90 Unspecified abnormal findings in urine; Z72.51 High risk heterosexual behavior
CPT/HCPCS: 0353U; 36415; 80053; 85025; 87086; 87088; 87186

== ENCOUNTER 2023-07-02 10:25 | Inpatient (IN) | payer OTHER, SELFPAY ==
--- NOTE | ~2023-07-02 | US_ITS ---
EXAMINATION: US ABDOMEN LIMITED CLINICAL INFORMATION: Right upper quadrant pain. COMPARISON: None available. TECHNIQUE: Real-time imaging of the gallbladder and common bile duct only. FINDINGS: GALLBLADDER: 1.9 cm impacted gallstone is present in the gallbladder neck. There is associated mild wall thickening at 5 mm and a positive Benitez's sign. No pericholecystic fluid is seen. COMMON BILE DUCT: Normal in caliber measuring 0.3 cm in diameter. FREE FLUID: None seen US/US abdomen limited IMPRESSION: Cholelithiasis with impacted stone in the gallbladder neck with associated wall thickening and positive Benitez's sign. Findings are consistent with acute cholecystitis.
[2023-07-02 10:43] VITALS: BP 124/63; PULSE 91; RESP 16; TEMP 36; O2SAT 98; BMI 33.8
[2023-07-02 10:54] LABS: MANUAL DIFF FLAG NO
[2023-07-02 10:56] LABS: Basophils Percent Auto 0.5 % (0-2); Eosinophils Absolute Auto 0.2 X10*3/uL (0.0-0.4); Eosinophils Percent Auto 2.2 % (0-4); Hematocrit 37.8 % (37.0-47.0); Hemoglobin 12.2 g/dl (12.0-16.0); Imm Gran Abs Auto 0.03 X10*3/uL (0.00-0.03); Imm Gran Pct Auto 0.3 % (0.0-0.4); Lymphocytes Absolute Auto 2.6 X10*3/uL (1.2-4.9); Lymphocytes Percent Auto 29.1 % (20-40); Mean Corpuscular HGB Conc 32.3 g/dl (31.0-35.0); Mean Corpuscular Hemoglobin 29.6 pg (27.0-33.0); Mean Corpuscular Volume 91.7 fL (80.0-98.0); Mean Platelet Volume 8.6 fL (9.4-12.3); Monocytes Absolute Auto 0.6 X10*3/uL (0.1-1.2); Monocytes Percent Auto 6.8 % (2-11); Neutrophils Absolute Auto 5.4 x10*3/uL (2.0-8.3); Neutrophils Percent Auto 61.1 % (45-73); Platelet Count 311 X10*3/uL (160-400); Red Blood Count 4.12 X10*6/uL (4.20-5.50); Red Cell Distribution Width 12.7 % (11.0-16.0); White Blood Count 8.8 X10*3/uL (4.8-10.8)
[2023-07-02 11:09] LABS: Alanine Aminotransferase 18 U/L (0-31); Albumin Level 3.9 g/dL (3.5-5.0); Alkaline Phosphatase 68 U/L (39-117); Anion Gap 10 (12-20); Aspartate Amino Transferase 17 U/L (5-31); Bilirubin Direct < 0.2 mg/dL (0.0-0.5); Bilirubin Total 0.2 mg/dL (0.0-1.0); Blood Urea Nitrogen 19 mg/dL (9-16); Calcium 8.9 mg/dL (8.4-10.2); Carbon Dioxide 23 mmol/L (22-29); Chloride 112 mmol/L (96-108); Creatinine Clr Calc Pharmacy 135.4; Estimated Glomerular Filt Rate > 60; Glucose Random 88 mg/dL (60-115); Lipase 19 U/L (8-78); Potassium 4.7 mmol/L (3.3-5.1); Sodium 140 mmol/L (135-145); Total Protein 6.9 g/dL (6.5-8.0)
[2023-07-02 16:00] VITALS: BP 147/82; PULSE 82; RESP 16; TEMP 36.9; O2SAT 98
[2023-07-02 19:18] VITALS: BP 120/73; PULSE 84; RESP 16; TEMP 36.9; O2SAT 100
[2023-07-02] MEDS: Morphine Sulfate 4 MG/ML CARTRIDGE IVPUSH (19:36)
[2023-07-02] MEDS: 0.9 % Sodium Chloride 1,000 ML 999 ML IV (19:36)
[2023-07-02] MEDS: ondansetron HCL 4 MG/2 ML VIAL IVPUSH (19:36)
--- NOTE | 2023-07-02 19:49 | ED_ITS ---
HPI - General Adult General Chief complaint: Abdominal Pain Stated complaint: abd and back pain Time Seen by Provider: 07/02/23 18:59 Source: patient, RN notes reviewed and old records reviewed Mode of arrival: ambulatory Limitations: no limitations History of Present Illness HPI narrative: 22-year-old female presents for evaluation of abdominal pain Patient had similar pain about 3 months ago in March of last year when she was diagnosed with a large gallstone and biliary colic She followed up with Dr. Enriquez, outpatient surgery and has an elective cholecystectomy scheduled for July 23 However over last 2-3 days she has had severe, worsening right upper abdominal pain. She went to the outpatient [facility] yesterday and was given oxycodone and nausea medicine. She has been taking the medications without any improvement in her symptoms. Denies any fevers, chills. The patient has no previous abdominal surgeries Currently her pain is an 8/10, stabbing and radiates to her back Related Data Previous Rx's Medication Instructions Recorded ibuprofen 600 mg tablet 600 mg PO Q6H PRN pain #20 tabs 05/17/20 ibuprofen 600 mg tablet 600 mg PO Q6H PRN pain #30 tabs 04/25/21 Allergies Allergy/AdvReac Type Severity Reaction Status Date / Time No Known Allergies Allergy Verified 06/10/23 09:06 Review of Systems 2 Constitutional: Constitutional: Denies chills, Denies fever(s) and Denies headache(s) Eyes: Eyes: Denies blurry vision ENT: Denies headache(s) Cardiovascular: Cardiovascular: Denies chest pain and Denies dyspnea Respiratory: Respiratory: Denies cough and Denies dyspnea Gastrointestinal: Gastrointestinal: Reports abdominal pain, Reports nausea and Reports vomiting Musculoskeletal: Musculoskeletal: Reports back pain Integumentary/Breasts: Skin/Breast: Denies rash Neurologic: Denies headache(s) [facility] Past Medical History Medical History (Updated 07/02/23 @ 20:57 by Tigre Evangelista) No known health problems Surgical History (Updated 06/10/23 @ 09:48 by Elia Enriquez MD) History of tonsillectomy Social History Social History (Updated 06/10/23 @ 09:35 by GRETEL Hernández) Patient Tobacco Use Status: Never used Tobacco Cigarettes Per Day: 1 Smoked in Last 30 Days: Yes Use of substances other than those prescribed or required for medical reasons: Yes Substance Use Type: Marijuana Advance Directives: No Physical Exam ED Vital Signs: Vital Signs - 24 hr 07/02/23 10:43 07/02/23 16:00 07/02/23 19:18 Temperature 96.8 F 98.4 F 98.4 F Pulse Rate 91 82 84 Respiratory Rate 16 16 16 Blood Pressure 124/63 147/82 H 120/73 Pulse Oximetry 98 98 100 Oxygen Delivery Method Room Air Room Air Room Air BMI result Body Mass Index 33.8 Const General: healthy appearing, alert and awake Nutritional Appearance: well nourished Orientation/consciousness: patient oriented x3 HENMT Head: Yes normocephalic and Yes atraumatic Eyes Eyelids: Yes eyelids normal Conjunctivae: conjunctivae normal Sclerae: sclerae normal Corneas: corneas normal Pupils: Equal, round and reactive pupils present EOM: EOMs intact bilaterally Resp Effort & Inspection: normal respiratory effort, able to speak in complete sentences and not labored GI Inspection: No distended Palpation (GI): Soft to palpation, not firm, Tenderness to palpation present (GI) in the RUQ and Benitez's sign positive, Guarding due to palpation present (GI) (Guarding to palpation of the right upper quadrant) and not rigid Skin General skin exam: elasticity normal Neuro General: patient oriented x3 Cranial nerves: Yes Equal, round and reactive pupils present and Yes Bilaterally intact EOM present Cognition (Neuro): normal cognition Extrem Other: Moving all extremities well without any obvious deformities Medications Administered Discontinued Medications Generic Name Dose Route Start Last Admin Trade Name Freq PRN Reason Stop Dose Admin Sodium Chloride 1,000 mls @ 999 mls/hr 07/02/23 19:15 07/02/23 19:36 Ns IV 07/02/23 20:15 999 mls/hr .Q1H1M ANGELIQUE Administration Morphine Sulfate 4 mg 07/02/23 19:07 07/02/23 19:36 Morphine Sulfate 4 Mg/Ml Cartridge IVPUSH 07/02/23 19:08 4 mg ONCE ONE Administration Protocol Ondansetron HCl 4 mg 07/02/23 19:07 07/02/23 19:36 Ondansetron Hcl 4 Mg/2 Ml Vial IVPUSH 07/02/23 19:08 4 mg ONCE ONE Administration Medical Decision Making Medical Decision Making MDM Narrative: 22 female with known history of cholelithiasis presents for evaluation of worsening right upper abdominal pain with vomiting. She is afebrile, no leukocytosis and LFTs are within normal limits. However, given that she reports worsening pain and vomiting we will get a repeat ultrasound to rule out cholecystitis. Will likely discuss with General surgery given her 2nd visit in 2 days for the same problem to possibly expedite her cholecystectomy Differential Diagnosis Differential Diagnoses: The differential diagnosis associated with the presentation includes Biliary colic Cholecystitis Cholelithiasis Choledocholithiasis Abdominal pain Pancreatitis Admission/Observation Consideration of admission/observation: Escalation of care including admission/observation considered Patient has had multiple visits for the same complaint Consult Healthcare Provider Management of the patient was discussed with: Chief Operating Engineer (Dr. Live) Lab Data MDM Lab Attestation statement: I reviewed the patient's lab results. No leukocytosis, no significant anemia. Normal platelet count. No significant electrolyte abnormalities. LFTs within normal limits 07/02/23 10:49 07/02/23 10:49 Labs: Lab Results 07/02/23 Range/Units 10:49 WBC 8.8 (4.8-10.8) X10*3/uL RBC 4.12 L (4.20-5.50) X10*6/uL Hgb 12.2 (12.0-16.0) g/dl Hct 37.8 (37.0-47.0) % MCV 91.7 (80.0-98.0) fL MCH 29.6 (27.0-33.0) pg MCHC 32.3 (31.0-35.0) g/dl RDW 12.7 (11.0-16.0) % Plt Count 311 (160-400) X10*3/uL MPV 8.6 L (9.4-12.3) fL Immature Gran % (Auto) 0.3 (0.0-0.4) % Neut % (Auto) 61.1 (45-73) % Lymph % (Auto) 29.1 (20-40) % [place] % (Auto) 6.8 (2-11) % Eos % (Auto) 2.2 (0-4) % Baso % (Auto) 0.5 (0-2) % Lymph # (Auto) 2.6 (1.2-4.9) X10*3/uL [place] # (Auto) 0.6 (0.1-1.2) X10*3/uL Eos # (Auto) 0.2 (0.0-0.4) X10*3/uL Baso # (Auto) 0.0 (0.0-0.2) X10*3/uL Abs Immat Gran (auto) 0.03 (0.00-0.03) X10*3/uL Absolute Neuts (auto) 5.4 (2.0-8.3) x10*3/uL Absolute Nucleated RBC 0.000 (0.0-0.012) X10*3/uL Nucleated RBC % (auto) 0.0 (0.0-0.2) /100WBC Sodium 140 (135-145) mmol/L Potassium 4.7 (3.3-5.1) mmol/L Chloride 112 H (96-108) mmol/L Carbon Dioxide 23 (22-29) mmol/L Anion Gap 10 L (12-20) BUN 19 H (9-16) mg/dL Creatinine 0.75 (0.5-1.4) mg/dL Estim Creat Clear Calc 135.4 Estimated GFR > 60 Random Glucose 88 (60-115) mg/dL Calcium 8.9 (8.4-10.2) mg/dL Total Bilirubin 0.2 (0.0-1.0) mg/dL Direct Bilirubin < 0.2 (0.0-0.5) mg/dL AST 17 (5-31) U/L ALT 18 (0-31) U/L Alkaline Phosphatase 68 (39-117) U/L Total Protein 6.9 (6.5-8.0) g/dL Albumin 3.9 (3.5-5.0) g/dL Lipase 19 (8-78) U/L Independent Interpretation I performed an independent interpretation of an: Ultrasound (Agree with Radiology interpretation, thickened gallbladder wall with large stone) Radiology Impression Discussion of test interpretation with radiology: I have reviewed the radiologist's reading. (Findings concerning with acute cholecystitis) Prescription Management I considered prescription management with: Pain Medication and Antibiotic Discharge Plan Discharge Clinical Impression: Acute calculous cholecystitis Patient Disposition: Admitted As Inpatient Prescriptions: No Action ibuprofen 600 mg tablet 600 mg PO Q6H PRN (Reason: pain) Qty: 20 0RF ibuprofen 600 mg tablet 600 mg PO Q6H PRN (Reason: pain) Qty: 30 0RF
--- NOTE | 2023-07-02 20:22 | PC.NURSE ---
no blood cultures per hernan bhakta
--- NOTE | 2023-07-02 21:22 | PHA.MEDREC ---
Pharmacy Consult ? Medication Reconciliation Pharmacy has completed the medication reconciliation. Patient was prescirbed oxycodone, but unsure of dose and not of PDMP or Claim history yet. Patient reported she has not start the miralax because she picked it up. Janel Caceres, PharmD
[2023-07-02] MEDS: Piperacillin Sodium/Tazobactam 3.375 GM in 0.9 % Sodium Chloride 50 ML IV (21:31)
[2023-07-02] MEDS: Acetaminophen 1,000 MG/100 ML PIGGYBACK 400 MG IV (22:11)
[2023-07-02 22:26] LABS: Appearance Urine Clear; Color Urine Yellow; Glucose Urine UA Negative (Negative); Leukocyte Esterase Urine Negative (Negative); Nitrite Urine Negative (Negative); UMIC TRIGGER UACC YES; Urine Blood Trace (Negative); Urine Ketones Negative (Negative); Urine Protein Negative (Neg-Trace)
[2023-07-02 22:27] LABS: UPreg QC Valid YES
[2023-07-02 22:28] LABS: Urine Pregnancy NEGATIVE (NEGATIVE)
[2023-07-02 22:31] LABS: Bacteria Urine None Seen (None Seen); Hyaline Casts Urine 0-2 /LPF (0-2); RBC Urine 0-2 /HPF (0-2); Squamous Epithelial Cell Urine 0-2 /HPF (0-2); WBC Urine 0-5 /HPF (0-5)
[2023-07-02] MEDS: HYDROmorphone HCl 0.5 MG/0.5 ML SYRINGE IVPUSH (23:05)
[2023-07-02] MEDS: Dextrose 5 % and Lactated Ring 1,000 ML 125 ML IVCONT (23:05)
[2023-07-03] VITALS (15 sets, daily range): BP systolic 106–182; BP diastolic 55–107; PULSE 50–78; RESP 11–20; TEMP 36.1–36.7; O2SAT 98–100
[2023-07-03] MEDS: Piperacillin Sodium/Tazobactam 3.375 GM in 0.9 % Sodium Chloride 50 ML IV ×2 (05:22→09:58)
[2023-07-03] MEDS: Acetaminophen 1,000 MG/100 ML PIGGYBACK 400 MG IV ×3 (05:22→15:50)
[2023-07-03] MEDS: HYDROmorphone HCl 0.5 MG/0.5 ML SYRINGE IVPUSH ×5 (05:48→19:15)
--- NOTE | 2023-07-03 05:48 | PC.NURSE ---
dilaudid syringe mixed in saline syringe for dilution however accidentally tossed in sharps container prior to scanning. prn given per mar as pt c/o 6 pain after iv tylenol.
--- NOTE | 2023-07-03 07:54 | P.HPGS_ITS ---
History of Present Illness History of Present Illness Date of Service: 07/03/23 Chief complaint: Acute Cholecystitis,cholelithiasis Narrative: Jaimee Marshall is a 22 year old female with no significant PMH who presented to the ED with complaints of RUQ abdominal pain. She reports this current episode began Thursday. She was seen at an urgent care and sent home. The pain persisted and she began vomiting yesterday prompting her to seek care in the ED. She reports multiple previous episodes of similar pain in the past couple of years that have resolved spontaneously. She was seen at the general surgery office and was in the process of being scheduled for laparoscopic cholecystectomy for recurrent biliary colic. Work up in the ED included CBC, BMP and LFTs which were all WNL and ABD US that showed a 1.9 cm impacted gallstone is present in the gallbladder neck with associated mild wall thickening at 5 mm and a positive ultrasonic Benitez's sign. This morning she continues to have RUQ pain. She wants to have her gallbladder removed during this stay. Review of Systems Constitutional: Constitutional: Denies chills and Denies fever(s) ENT: Denies dizziness Cardiovascular: Cardiovascular: Denies chest pain and Denies dyspnea Respiratory: Respiratory: Denies dyspnea Gastrointestinal: Gastrointestinal: Reports as per HPI Genitourinary: Genitourinary: Denies dysuria Integumentary/Breasts: Skin/Breast: Denies rash and Denies jaundice Neurologic: Denies dizziness [facility] Past Medical History Medical History (Updated 07/02/23 @ 20:57 by Tigre Evangelista) No known health problems Surgical History Surgical History (Updated 06/10/23 @ 09:48 by Elia Enriquez MD) History of tonsillectomy Social History Social History (Updated 06/10/23 @ 09:35 by GRETEL Hernández) Patient Tobacco Use Status: Never used Tobacco Cigarettes Per Day: 1 Smoked in Last 30 Days: Yes Use of substances other than those prescribed or required for medical reasons: Yes Substance Use Type: Marijuana Advance Directives: No Meds Allergies Allergy/AdvReac Type Severity Reaction Status Date / Time No Known Allergies Allergy Verified 06/10/23 09:06 Active Medications: Current Medications Hydromorphone HCl (Hydromorphone Hcl 0.5 Mg/0.5 Ml Syringe) 0.5 mg IVPUSH Q3H PRN; Protocol PRN Reason: Pain, Severe (Pain Scale 7-10) Last Admin: 07/03/23 05:48 Dose: 0.5 mg Acetaminophen (Ofirmev) 1,000 mg in 100 mls @ 400 mls/hr IV Q6H [facility] Stop: 07/03/23 16:14 Last Infusion: 07/03/23 05:49 Dose: Infused Dextrose/Lactated Ringer's (D5lr) 1,000 mls @ 125 mls/hr IVCONT .Q8H [facility] Last Infusion: 07/03/23 05:48 Dose: 125 mls/hr Piperacillin Sod/Tazobactam (Sod 3.375 gm/ Sodium Chloride) 50 mls @ 100 mls/hr IV Q6H [facility] Last Infusion: 07/03/23 05:50 Dose: Infused Ondansetron HCl (Ondansetron Hcl 4 Mg/2 Ml Vial) 4 mg IVPUSH QID PRN PRN Reason: Nausea Sodium Chloride (0.9 % Sodium Chloride Flush 3 Ml Syringe) 3 ml IVFLUSH QSHIFT [facility] Last Admin: 07/02/23 23:08 Dose: Not Given Zolpidem Tartrate (Zolpidem Tartrate 5 Mg Tablet) 5 mg PO BEDTIME PRN PRN Reason: Insomnia Home Medications Medication Instructions Recorded Confirmed Last Taken Type acetaminophen 500 mg tablet 1,000 mg PO Q6H PRN fever 07/02/23 07/02/23 Unknown History ibuprofen 600 mg tablet 600 mg PO TID 07/02/23 07/02/23 Unknown History nicotine 14 mg/24 hr daily 1 patch topical DAILY 07/02/23 07/02/23 07/02/23 History transdermal patch Physical Exam Vital Signs: Vital Signs: Last Vital Signs Temp 97.9 F 07/03/23 05:51 Pulse 65 07/03/23 05:51 Resp 16 07/03/23 05:51 BP 106/59 L 07/03/23 05:51 Pulse Ox 98 07/03/23 05:51 O2 Del Method Room Air 07/03/23 05:51 BMI result Body Mass Index 33.8 Const: General: comfortable, no acute distress and alert Orientation/consciousness: patient oriented x3 Resp: Effort & Inspection: normal respiratory effort Cardio: Rate: regular rate GI: Inspection: No distended and No scar Palpation (GI): Soft to palpation, Tenderness to palpation present (GI) in the RUQ; Benitez's sign negative, no guarding and not rigid Percussion: Yes normal to percussion Skin: General skin exam: no rashes or lesions noted and no jaundice Neuro: General: patient oriented x3 Results Results Labs: Short CBC 07/02/23 Range/Units 10:49 WBC 8.8 (4.8-10.8) X10*3/uL Hgb 12.2 (12.0-16.0) g/dl Hct 37.8 (37.0-47.0) % Plt Count 311 (160-400) X10*3/uL BMP 07/02/23 10:49 Sodium 140 Potassium 4.7 Chloride 112 H Carbon Dioxide 23 BUN 19 H Creatinine 0.75 Calcium 8.9 Liver Function 07/02/23 Range/Units 10:49 Total Bilirubin 0.2 (0.0-1.0) mg/dL Direct Bilirubin < 0.2 (0.0-0.5) mg/dL AST 17 (5-31) U/L ALT 18 (0-31) U/L Alkaline Phosphatase 68 (39-117) U/L Albumin 3.9 (3.5-5.0) g/dL Urine 07/02/23 Range/Units 22:17 Urine Color Yellow Urine Appearance Clear Urine pH 5.0 (5.0-9.0) Ur Specific [place] 1.020 (1.005-1.025) Urine Protein Negative (Neg-Trace) mg/dL Urine Glucose (UA) Negative (Negative) mg/dL Urine Test NEGATIVE (NEGATIVE) Abdominal ultrasound report/results: report reviewed and image reviewed Assessment and Plan (1) Acute calculous cholecystitis: Status: Acute Plan 22 year old female without significant PMH who presents with RUQ abd pain with RUQ tenderness and US showing impacted gallstone in the gallbladder neck with wall thickening. Patient with multiple episodes of biliary colic and now with likely early acute cholecystitis. She was admitted to the surgical service for further treatment. Patient wants to proceed with laparscopic cholecystectomy during her stay. Risks, benefits, alternatives of laparoscopic possible open cholecystectomy were reviewed with the patient including but not limited to bleeding, infection, numbness, pain, poor healing, injury to the liver, bowel or bile ducts, leak, retained stones and the patient wishes to proceed.? Arrangements will be made for this.?All questions were answered. Quality Stroke Does the patient have a stroke diagnosis?: No VTE Prior VTE?: No VTE Risk Level:: Surgical - moderate VTE Device Contraindication: N/A - Device Ordered VTE Drug Contraindication: Treatment Not Indicated Procedures Date of Service Date of Service: 07/03/23
--- NOTE | 2023-07-03 08:07 | PC.NURSE ---
admission worksheet complete. transport notified at this time.
[2023-07-03] MEDS: 0.9 % Sodium Chloride Flush 3 ML SYRINGE IVFLUSH ×3 (09:05→19:15)
[2023-07-03] MEDS: Dextrose 5 % and Lactated Ring 1,000 ML 125 ML IVCONT (09:07)
--- NOTE | 2023-07-03 09:11 | PC.NURSE ---
IVF administered at this time. pt being transported at this time.
[2023-07-03] MEDS: ondansetron HCL 4 MG/2 ML VIAL IVPUSH (09:41)
--- NOTE | 2023-07-03 12:10 | HO.ANESPROP2 ---
HPI - Anesthesia Eval Consult details Narrative: 22 yo F presenting for lap david. PMFSH Active Problems Active Problems: All Active Problems (Updated 07/02/23 @ 20:57 by Tigre Evangelista) Acute calculous cholecystitis (Acute) Hallucinogenic mushrooms use disorder, mild (Acute) COVID-19 (Acute) Past Medical History Medical History (Updated 07/02/23 @ 20:57 by Tigre Evangelista) No known health problems Family History Family history of problems with anesthesia: No Surgical History Surgical History (Updated 06/10/23 @ 09:48 by Elia Enriquez MD) History of tonsillectomy History of Problems with Anesthesia: No Social History Social History (Updated 06/10/23 @ 09:35 by GRETEL Hernández) Household Members: Family Housing: Apartment Do you presently have visiting nurse or other home services: No Patient Tobacco Use Status: Never used Tobacco Tobacco use type: Cigarette Cigarettes Per Day: 2 Years Smoked: 3 e-Cigarette/Vaping Use: Currently Using Substance Use Type: Marijuana Meds Allergies Allergy/AdvReac Type Severity Reaction Status Date / Time No Known Allergies Allergy Verified 06/10/23 09:06 Active Medications: Current Medications Hydromorphone HCl (Hydromorphone Hcl 0.5 Mg/0.5 Ml Syringe) 0.5 mg IVPUSH Q3H PRN; Protocol PRN Reason: Pain, Severe (Pain Scale 7-10) Last Admin: 07/03/23 10:35 Dose: 0.5 mg Acetaminophen (Ofirmev) 1,000 mg in 100 mls @ 400 mls/hr IV Q6H [facility] Stop: 07/03/23 16:14 Last Infusion: 07/03/23 09:58 Dose: Infused Dextrose/Lactated Ringer's (D5lr) 1,000 mls @ 125 mls/hr IVCONT .Q8H [facility] Last Infusion: 07/03/23 11:48 Dose: 0 mls/hr Piperacillin Sod/Tazobactam (Sod 3.375 gm/ Sodium Chloride) 50 mls @ 100 mls/hr IV Q6H [facility] Last Infusion: 07/03/23 10:36 Dose: Infused Ondansetron HCl (Ondansetron Hcl 4 Mg/2 Ml Vial) 4 mg IVPUSH QID PRN PRN Reason: Nausea Last Admin: 07/03/23 09:41 Dose: 4 mg Sodium Chloride (0.9 % Sodium Chloride Flush 3 Ml Syringe) 3 ml IVFLUSH QSHIFT [facility] Last Admin: 07/03/23 09:05 Dose: 3 ml Zolpidem Tartrate (Zolpidem Tartrate 5 Mg Tablet) 5 mg PO BEDTIME PRN PRN Reason: Insomnia Home Medications Medication Instructions Recorded Confirmed Last Taken Type acetaminophen 500 mg tablet 1,000 mg PO Q6H PRN fever 07/02/23 07/02/23 Unknown History ibuprofen 600 mg tablet 600 mg PO TID 07/02/23 07/02/23 Unknown History nicotine 14 mg/24 hr daily 1 patch topical DAILY 07/02/23 07/02/23 07/02/23 History transdermal patch Exam Exam Date and Time: July 03, 2023 1210 Height,Weight and Vital Signs: Height 5 ft 6 in Weight 94.9 kg Last Vital Signs Temp 97 F 07/03/23 09:17 Pulse 72 07/03/23 09:17 Resp 16 07/03/23 09:17 BP 123/88 07/03/23 09:17 Pulse Ox 100 07/03/23 09:17 O2 Del Method Room Air 07/03/23 09:17 Pertinent Lab Results Pertinent Lab Results: Laboratory Tests 07/02/23 07/02/23 10:49 22:17 WBC 8.8 RBC 4.12 L Hgb 12.2 Hct 37.8 MCV 91.7 MCH 29.6 MCHC 32.3 RDW 12.7 Plt Count 311 MPV 8.6 L Immature Gran % (Auto) 0.3 Neut % (Auto) 61.1 Lymph % (Auto) 29.1 [place] % (Auto) 6.8 Eos % (Auto) 2.2 Baso % (Auto) 0.5 Lymph # (Auto) 2.6 [place] # (Auto) 0.6 Eos # (Auto) 0.2 Baso # (Auto) 0.0 Abs Immat Gran (auto) 0.03 Absolute Neuts (auto) 5.4 Absolute Nucleated RBC 0.000 Nucleated RBC % (auto) 0.0 Sodium 140 Potassium 4.7 Chloride 112 H Carbon Dioxide 23 Anion Gap 10 L BUN 19 H Creatinine 0.75 Estim Creat Clear Calc 135.4 Estimated GFR > 60 Random Glucose 88 Calcium 8.9 Total Bilirubin 0.2 Direct Bilirubin < 0.2 AST 17 ALT 18 Alkaline Phosphatase 68 Total Protein 6.9 Albumin 3.9 Lipase 19 Urine Color Yellow Urine Appearance Clear Urine pH 5.0 Ur Specific [place] 1.020 Urine Protein Negative Urine Glucose (UA) Negative Urine Ketones Negative Urine Blood Trace H Urine Nitrite Negative Ur Leukocyte Esterase Negative Urine RBC 0-2 Urine WBC 0-5 Ur Squamous Epith Cells 0-2 Urine Bacteria None Seen Hyaline Casts 0-2 Urine Test NEGATIVE Airway Mallampati Class: I TM Dist: >3cm Neck ROM: Full Loose/Missing/Broken Teeth: No Heart: S1S2 Lungs: CTAB Assessment and Plan Assessment Anesthesia Assessment: Anesthesia Plan Discussed and Chart Reviewed Final Anesthetic Review Family History of Problems with Anesthesia: No History of Problems with Anesthesia: No NPO: Yes ASA Class: II Final Preanesthetic Review: No Changes in Pt Med Stat, Meds/Allgs Chart Reviewed, Consent Obtained/Reviewed and Anes Risks/Benef Reviewed Patient Risk: Low Procedure Risk: Low Anesthetic Plan Anesthetic Plan: GA and Agree w/ Assess. and Plan Disposition: Standard PACU
--- NOTE | 2023-07-03 13:59 | W.PM.OPN ---
Operative Note Operative Note Date of Service: 07/03/23 Narrative: Preoperative diagnosis: [] Acute cholecystitis Postop diagnosis: [] The same Procedure [] laparoscopic cholecystectomy Surgeon: [] Mina Manager Access: [] Prakash Type of Anesthesia: [] General Indication for surgery: [] Markedly edematous inflamed gallbladder with omental adhesions to it. Corpulent abdomen. Findings: [] Patient brought to the operating room, placed on operative table in supine position, after an adequate level of general anesthesia was induced, the patient's abdomen was prepped and draped in usual sterile fashion. Using a supraumbilical curvilinear incision, Velasquez technique was used to insufflate abdominal cavity to 15 mm of CO2. Upper midline and right subcostal ports were placed under direct laparoscopic view, the patient placed in reverse Trendelenburg position and tilted to the left. Gallbladder findings were as noted above. Gallbladder was grasped using laparoscopic graspers and retracted superiorly and laterally . Cystic artery cystic duct and common bile duct were all identified. Cystic artery and cystic duct were each traced directly into the gallbladder, skeletonized, and critical view obtained. Each was clipped proximally x2, distally x1, and transected. Gallbladder which was moderately intrahepatic was then cauterized from the gallbladder fossa using Bovie. Specimen placed in an Endo-Catch bag, a retrieved through the umbilical port. Abdominal cavity was copiously irrigated and secured hemostasis. All ports were removed under direct laparoscopic view. Wounds were closed in the following manner; umbilical wound is fascia reapproximated using interrupted 0 Vicryl sutures. Skin wounds were closed using subcuticular 4-0 Vicryl suture followed by Steri-Strips and sterile dressings. All wounds were infiltrated 0.5% Marcaine at completion. Sponge, needle, and instrument counts were reported correct. Patient tolerated the procedure well and emerged anesthesia stable condition. EBL minimal
[2023-07-03] MEDS: Haloperidol Lactate 5 MG/ML VIAL 1 MG IVPUSH (14:44)
--- NOTE | 2023-07-03 16:24 | MHC.CM.PN ---
CM ATTEMPTED TO MEET WITH PT WHO WAS OFF UNIT CM MET WITH PTS S/O WHO WAS WAITING IN ROOM HE REPORTS THEY LIVE WITH PTS SISTER PT IS INDEPENDENT WITH CARE SHE HAS NO DME AND NO SERVICES PT DOES NOT HAVE A HCP PCP: JOSSELYN GILMORE DCP: HOME NO SERVICES
--- NOTE | 2023-07-03 17:56 | PC.NURSE ---
Pt states she wishes to stay till tomorrow then d/c home after surgery.
[2023-07-03] MEDS: Zolpidem Tartrate 5 MG TABLET PO (21:32)
[2023-07-03] MEDS: oxyCODONE HCl Immed Release 5 MG TABLET PO (21:32)
[2023-07-04] VITALS (7 sets, daily range): BP systolic 111–129; BP diastolic 59–73; PULSE 81–85; RESP 16–20; TEMP 36.4–36.7; O2SAT 100
[2023-07-04] MEDS: HYDROmorphone HCl 0.5 MG/0.5 ML SYRINGE IVPUSH ×4 (01:24→14:15)
[2023-07-04] MEDS: 0.9 % Sodium Chloride Flush 3 ML SYRINGE IVFLUSH (09:19)
[2023-07-04] MEDS: Docusate Sodium 100 MG CAPSULE PO (09:19)
--- NOTE | 2023-07-04 09:27 | MHC.CM.PN ---
PT TO DC HOME TODAY WITH NO SERVICES VIA PRIVATE TRANSPORT
--- NOTE | 2023-07-04 10:08 | PM.PNGS ---
Subjective Subjective Date of Service: 07/04/23 Interval history: Complains of pain on incisions Tolerating diet well No events reported Clinically looks well Physical Exam Vital Signs: Vital Signs: Last Vital Signs Temp 98.1 F 07/04/23 07:18 Pulse 84 07/04/23 07:18 Resp 20 07/04/23 09:24 BP 111/59 L 07/04/23 07:18 Pulse Ox 100 07/04/23 07:18 O2 Del Method Room Air 07/04/23 07:18 O2 Flow Rate 2 07/03/23 14:55 BMI result Body Mass Index 33.8 Const: General: comfortable and no acute distress Resp: Effort & Inspection: normal respiratory effort Cardio: Rate: regular rate GI: Other: Tender on incisions, dressings dry, no guarding rebound Palpation (GI): Soft to palpation and not firm Objective Data Active Medications Docusate Sodium (Docusate Sodium 100 Mg Capsule) 100 mg PO BID [facility] Last Admin: 07/04/23 09:19 Dose: 100 mg Documented By: MARIELLE Fentanyl (Fentanyl Citrate/Pf 100 Mcg/2 Ml Vial) 50 mcg IVPUSH Q5M PRN; Protocol PRN Reason: Pain, Severe (Pain Scale 7-10) Hydromorphone HCl (Hydromorphone Hcl 0.5 Mg/0.5 Ml Syringe) 0.5 mg IVPUSH Q3H PRN; Protocol PRN Reason: Pain, Severe (Pain Scale 7-10) Last Admin: 07/04/23 09:24 Dose: 0.5 mg Documented By: MARIELLE Ondansetron HCl (Ondansetron Hcl 4 Mg/2 Ml Vial) 4 mg IVPUSH QID PRN PRN Reason: Nausea Last Admin: 07/03/23 09:41 Dose: 4 mg Documented By: ROBIN Oxycodone HCl (Oxycodone Hcl Immed Release 5 Mg Tablet) 5 mg PO Q4H PRN PRN Reason: Pain, Moderate(Pain Scale 4-6) Last Admin: 07/03/23 21:32 Dose: 5 mg Documented By: BOLIVAR Sodium Chloride (0.9 % Sodium Chloride Flush 3 Ml Syringe) 3 ml IVFLUSH [facility] Last Admin: 07/04/23 09:19 Dose: 3 ml Documented By: MARIELLE Zolpidem Tartrate (Zolpidem Tartrate 5 Mg Tablet) 5 mg PO BEDTIME PRN PRN Reason: Insomnia Last Admin: 07/03/23 21:32 Dose: 5 mg Documented By: BOLIVAR Labs 07/02/23 10:49 07/02/23 10:49 Procedures Date of Service Date of Service: 07/04/23 Progress Note: A&P Assessment and plan (1) Acute calculous cholecystitis: Status: Acute Assessment and Plan: Status post lap cholecystectomy Doing well overall Tenderness on incisions appropriate to postop course She stated she may not be ready to go home on oral pain meds Okay to [place] home once with good pain control Tolerating diet well Clinically looks good Time Spent With Patient Time: Total time managing care of this patient today ____ minutes. Quality Stroke Does the patient have a stroke diagnosis?: No VTE Prior VTE?: No VTE Risk Level:: Surgical - moderate VTE Device Contraindication: N/A - Device Ordered VTE Drug Contraindication: Treatment Not Indicated
--- NOTE | 2023-07-04 14:10 | PM.EVENT ---
Event Note Date of Service: 07/04/23 Event Note: Patient seen on afternoon rounds She says she feels better and thinks that her pain is more controlled She wants to go home Stable vital signs, looks well Will DC home on p.o. pain meds Discharge instructions emphasized to patient Time Spent With Patient Time: Total time managing care of this patient today ____ minutes.
--- NOTE | 2023-07-04 19:48 | HO.POSTANES ---
Post Anesthesia Evaluation Post Anesthesia Evaluation Date of Service: 07/04/23 Vital Signs: Vital Signs Temp Pulse Resp BP Pulse Ox O2 Del Method 07/04/23 14:15 18 07/04/23 11:45 97.6 F 81 16 129/63 100 Room Air 07/04/23 09:24 20 Anesthesia: General Endotracheal-GETA Mental Status: Awake Pain Control: Satisfactory Nausea/Vomiting: None Hydration: Adequate Anesthesia-Related Issues: No Anes. Related Issues
--- NOTE | 2023-07-17 14:27 | P.DS_ITS ---
DS: Providers Provider Date of Service: 07/04/23 Date of admission: 07/02/23 21:07 Date of discharge: 07/04/23 Primary care physician: Lisa Sam NP Attending physician on admission: Elia Enriquez Attending physician on discharge: Anoop Hanson DS: Diagnosis Discharge Diagnosis (1) Acute calculous cholecystitis: Status: Acute DS: Summary Hospital Course Hospital Course: HPI AT ADMISSION: Jaimee Marshall is a 22 year old female with no significant PMH who presented to the ED with complaints of RUQ abdominal pain. She reports this current episode began Thursday. She was seen at an urgent care and sent home. The pain persisted and she began vomiting yesterday prompting her to seek care in the ED. She reports multiple previous episodes of similar pain in the past couple of years that have resolved spontaneously. She was seen at the general surgery office and was in the process of being scheduled for laparoscopic cholecystectomy for recurrent biliary colic. Work up in the ED in cluded CBC, BMP and LFTs which were all WNL and ABD US that showed a 1.9 cm impacted gallstone is present in the gallbladder neck with associated mild wall thickening at 5 mm and a positive ultrasonic Benitez's sign. This morning she continues to have RUQ pain. She wants to have her gallbladder removed during this stay. HOSPITAL COURSE: She was admitted to the surgical service for further treatment. Patient wanted to proceed with laparscopic cholecystectomy during her stay. On 07/03/23, a laparoscopic cholecystectomy was performed by Dr. Enriquez without complication. The patient tolerated the procedure well. She had an uneventful post operative course. On POD #1, she felt well with good pain control. She was tolerating a solid diet and ambulating without difficulty. Her abdomen was benign with appropriate post op tenderness and clean/intact dressings. She felt ready for discharge to home. She was discharged to home on 07/04/23 in stable condition. She is to follow up with Dr. Enriquez in 1 week in the office. Status at Discharge Functional status at discharge: independent ambulation Overall status at discharge: patient is progressing back to baseline Time Attestation Discharge Coordination Time (in mins): 25 Quality: Safe Use of Opioids Does Pt have an Active Cancer Diagnosis on the Problem List?: No Quality: Stroke Does the patient have a stroke diagnosis?: No Physical Exam Vital Signs: Vital Signs: Last Vital Signs Temp 97.6 F 07/04/23 11:45 Pulse 81 07/04/23 11:45 Resp 18 07/04/23 14:15 BP 129/63 07/04/23 11:45 Pulse Ox 100 07/04/23 11:45 O2 Del Method Room Air 07/04/23 11:45 O2 Flow Rate 2 07/03/23 14:55 BMI result Body Mass Index 33.8 Const: General: comfortable, no acute distress and alert Orientation/consciousness: patient oriented x3 Resp: Effort & Inspection: normal respiratory effort GI: Inspection: No distended and Yes incision (dressings c/d/i) Palpation (GI): Soft to palpation and Tenderness to palpation present (GI) (mild incisional) Percussion: Yes normal to percussion Skin: General skin exam: no rashes or lesions noted and no jaundice Neuro: General: patient oriented x3 DS: Data Data Completed and Pending Completed studies during hospitalization [Text1]: 07/03/23 13:08 Surgical [PTH] Routine Gallbladder, cholecystectomy: -Chronic cholecystitis. -Cholelithiasis. -Reactive periductal lymph node. Procedures Resection of Gallbladder, Percutaneous Endoscopic Approach (07/02/23) Discharge Plan Discharge Anticipated Discharge Date/Time: 07/03/23 15:38 Patient Disposition: Home, Self-Care Discharge Diagnosis: Acute cholecystitis Referrals: Elia Enriquez MD [Physician] - 1 Week Lisa Sam NP [Primary Care Provider] - 1 Week Discharge Medications: New hydrocodone-acetaminophen 5-325 mg tablet 1 tab PO Q4-6H PRN (Reason: pain) Qty: 30 0RF Rx Instructions: Partial Fill upon patient request. Continued nicotine 14 mg/24 hr patch 24 hour 1 patch topical DAILY ibuprofen 600 mg tablet 600 mg PO TID Held acetaminophen 500 mg tablet 1,000 mg PO Q6H PRN (Reason: fever) Hold Instructions: Resume on 07/07/23. do not take while taking hydrocodone/acetaminophen. No Action senna 8.6 mg capsule 8.6 mg PO BEDTIME PRN (Reason: constipation) Qty: 30 0RF docusate sodium [Colace] 100 mg capsule 100 mg PO BID PRN (Reason: constipation) Qty: 30 0RF ondansetron 4 mg tablet,disintegrating 4 mg PO Q8H PRN (Reason: nausea and vomiting) Qty: 20 0RF Discharge Orders: Discharge Order (Routine); Ordered 07/03/23 Ordered By: Hawa Randall Diet: Advance to usual diet Activity on Discharge: No heavy lifting Stand Alone Forms: Patient Portal Discharge page Activity Restrictions/Additional Instructions: Ice to wound 20 minutes several times today and tomorrow. May shower in 2 days. Remove outside dressing only. Leave Steri-Strips intact. No strenuous activities Care Plan Goals: Return to baseline health and resume normal activities following recovery period. Health Concerns: acute cholecystitis Plan of Treatment: s/p laparoscopic cholecystectomy f/u in office in [address] Enriquez Assessment: Doing well post op. Discharge Date/Time: 07/04/23 15:55
== END 2023-07-04 15:55 | disposition home or self-care (01) | DRG 263 ==
LOC: HO.ED 21:39 → HO.EDOVER 21:42 → HO.S3 07-03 07:36
PROVIDERS: Admitting Provider Surgery; Emergency Provider Emergency Medicine; PCP Nurse Practitioner Primary Care; Visit Provider Surgery
PROC: 0FT44ZZ Resection of Gallbladder, Percutaneous Endoscopic Approach (ICD-10-PCS; CPT 47562; principal; 2023-07-03 13:10)
DX: K80.00 Calculus of gallbladder with acute cholecystitis without obstruction (principal)
CPT/HCPCS: 36415; 76705; 80048; 80076; 81001; 81025; 83690; 85025; 88304; 99285; J0131; J1100; J1170; J1630; J1885; J2250; J2270; J2405; J2543; J2704; J2795; J3010

== ENCOUNTER → 2023-07-02 21:07 | Outpatient (BNV) | payer OTHER, SELFPAY | PROVIDERS: Admitting Provider Surgery; Emergency Provider Emergency Medicine; PCP Nurse Practitioner Primary Care; Visit Provider Physician Assistant Surgical | DX: K80.00 Calculus of gallbladder with acute cholecystitis without obstruction (principal) | CPT/HCPCS: 47562; 99024; 99222; 99499 ==

== ENCOUNTER 2023-07-17 08:57 | Emergency (ER) | payer OTHER, SELFPAY ==
--- NOTE | ~2023-07-17 | US_ITS ---
EXAMINATION: US PELVIS CLINICAL INFORMATION: Right-sided cyst, serial abdominal pain COMPARISON: None available. TECHNIQUE: Ultrasound of the pelvis is performed using both transabdominal and transvaginal transducers along with Doppler. Transvaginal imaging is performed due to inadequate visualization transabdominally. FINDINGS: Uterus: The uterus is anteverted, anteflexed and measures 7.3 x 2.5 x 4.1 cm. The double wall endometrial thickness is 9.0 mm. The uterus is smooth in contour and has normal myometrial echogenicity. No visible fibroid. There is minimal free fluid in cervical canal. Adnexa: Both ovaries are visualized. There is normal color flow to the adnexa. There is no ovarian torsion. There is no pelvic ascites or fluid collection. Right ovary measures 3.3 x 2.6 x 2.9 cm and volume 13.0 mL. There is anechoic cyst measuring 2.4 x 2.1 x 1.8 cm. Left ovary measures 2.7 x 1.5 x 1.1 cm and volume 2.3 mL. There is no free fluid in the cul-de-sac. US/US pelvic ovarian doppler IMPRESSION: 1. Simple cyst right ovary. 2. The left ovary and the uterus is unremarkable. 3. There is minimal free fluid in the cervical canal.
--- NOTE | ~2023-07-17 | US_ITS ---
EXAMINATION: US PELVIS CLINICAL INFORMATION: Right-sided cyst, serial abdominal pain COMPARISON: None available. TECHNIQUE: Ultrasound of the pelvis is performed using both transabdominal and transvaginal transducers along with Doppler. Transvaginal imaging is performed due to inadequate visualization transabdominally. FINDINGS: Uterus: The uterus is anteverted, anteflexed and measures 7.3 x 2.5 x 4.1 cm. The double wall endometrial thickness is 9.0 mm. The uterus is smooth in contour and has normal myometrial echogenicity. No visible fibroid. There is minimal free fluid in cervical canal. Adnexa: Both ovaries are visualized. There is normal color flow to the adnexa. There is no ovarian torsion. There is no pelvic ascites or fluid collection. Right ovary measures 3.3 x 2.6 x 2.9 cm and volume 13.0 mL. There is anechoic cyst measuring 2.4 x 2.1 x 1.8 cm. Left ovary measures 2.7 x 1.5 x 1.1 cm and volume 2.3 mL. There is no free fluid in the cul-de-sac. US/US pelvic and transvaginal IMPRESSION: 1. Simple cyst right ovary. 2. The left ovary and the uterus is unremarkable. 3. There is minimal free fluid in the cervical canal.
--- NOTE | ~2023-07-17 | CT_ITS ---
EXAMINATION: CT ABDOMEN AND PELVIS WITH CONTRAST CLINICAL INFORMATION: Status post laparoscopic cholecystectomy with severe abdominal pain COMPARISON: None available. TECHNIQUE: Multidetector volumetric images were obtained from the superior aspect of the liver through the pubic symphysis following administration 85 mL of Omnipaque 350 intravenous contrast. Sagittal and coronal reformatted images were obtained on the technologist's workstation. Oral contrast: No This CT examination was performed using dose optimization techniques as appropriate, variously including the following: *Automated exposure control *Adjustment of mA and/or kV according to patient size (this includes techniques or standardized protocols for targeted exams where dose is matched to indication/reason for exam; i.e. extremities or head) *Use of iterative reconstruction technique DLP: 707 mGy-cm FINDINGS: LUNG BASES: The visualized lung bases are unremarkable. LIVER, GALLBLADDER, AND BILIARY Tree: liver is homogeneous without masses or ductal dilatation. There is no perihepatic ascites. Patient is status and there is no choledocholithiasis. Post cholecystectomy with mild fat stranding surrounding gallbladder fossa. CBD is not dilated PANCREAS: Unremarkable. SPLEEN: Unremarkable. ADRENAL GLANDS: Unremarkable. KIDNEYS AND URETERS: The kidneys are normal in size, shape, and attenuation. No hydronephrosis, hydroureter, or calculi seen. No perinephric stranding. BLADDER: Unremarkable. GASTROINTESTINAL TRACT: Stomach is unremarkable. Small bowel loops are nondilated. There is moderate amount of retained feces consistent with constipation. Appendix is normal. There is no diverticulitis or diverticulosis. ABDOMINAL WALL: There is stranding surrounding umbilicus due to recent laparoscopic cholecystectomy procedure. LYMPH NODES: Normal. VASCULAR: Unremarkable. PELVIC VISCERA: There is trace of fluid in the pelvis and there is a right ovarian 2.3 cm cyst. OSSEOUS STRUCTURES: Unremarkable. CT/CT abdomen pelvis w IV con IMPRESSION: 1. Status post cholecystectomy with mild fat stranding surrounding the gallbladder fossa. 2. Constipation. 3. Right ovarian cyst and trace of free fluid in the pelvis. Fleischner guidelines were followed.
[2023-07-17 09:06] VITALS: BP 117/93; BP 150/86; PULSE 120; PULSE 97; RESP 22; TEMP 36.7; O2SAT 100; O2SAT 98; BMI 33.2
--- NOTE | 2023-07-17 09:17 | ED_ITS ---
HPI - Abdominal Pain General Chief Complaint: Abdominal Pain Stated Complaint: ABD PAIN Time Seen by Provider: 07/17/23 09:12 Source: patient, EMS and old records reviewed Mode of arrival: EMS Limitations: no limitations History of Present Illness HPI narrative: 22 yo female otherwise healthy recent laparascopic cholecystectomy here on 07/[address] Enriquez. States she has done great post surgery until last night after eating homemade tacos. She developed sharp epigastric pain radiating across the abdomen to L shoulder for 1 hour with n/v. She had normal BM and passing flatus. This has not happened post surgery to her. Given 100mcg of IM fentanyl by EMS with no improvement MD elicited complaint: abdominal pain Pertinent past history: other (recent lap david on 07/02) Onset (ago): hour(s) (1) Pain Consistency: constant Location: epigastric Severity: severe Quality: stabbing Radiation: LUQ, RUQ and other (back and L shoulder) Migration to: no migration Exacerbating factors: nothing Relieving factors: nothing Context: recent surgery/procedure Associated symptoms: nausea and vomiting Treatments prior to arrival: other (IM fentanyl) Related Data Home Medications Medication Instructions Recorded Confirmed acetaminophen 500 mg tablet 1,000 mg PO Q6H PRN fever 07/02/23 07/02/23 ibuprofen 600 mg tablet 600 mg PO TID 07/02/23 07/02/23 nicotine 14 mg/24 hr daily 1 patch topical DAILY 07/02/23 07/02/23 transdermal patch Previous Rx's Medication Instructions Recorded hydrocodone 5 mg-acetaminophen 325 1 tab PO Q4-6H PRN pain #30 tabs 07/03/23 mg tablet docusate sodium 100 mg capsule 100 mg PO BID PRN constipation #30 07/17/23 (Colace) caps ondansetron 4 mg disintegrating 4 mg PO Q8H PRN nausea and 07/17/23 tablet vomiting #20 tabs sennosides 8.6 mg capsule (senna) 8.6 mg PO BEDTIME PRN constipation 07/17/23 #30 caps Allergies Allergy/AdvReac Type Severity Reaction Status Date / Time No Known Allergies Allergy Verified 07/17/23 09:33 Review of Systems Review of Systems Constitutional : No Weight loss, No Fever, No Chills ENT/Mouth : No sore throat, No Rhinorrhea Eyes: No Swelling, No Redness Cardiovascular : No Chest Pain, No SOB, NoEdema Respiratory : No Cough, No Sputum, No Wheezing Gastrointestinal : Positive Nausea, Positive Vomiting, no Diarrhea, positive abdominal Pain, No Hematochezia, No Melena Genitourinary : No Dysuria, No Urinary Frequency, No Hematuria, No Urgency Musculoskeletal : No joint pain, No Myalgias, No Joint Swelling Skin : No Skin Lesions, No rash Neuro : No Weakness, No Numbness, No Dizziness, No Headache Psych : No Anxiety/Panic, No Depression All other systems reviewed and are negative. COUNT INCLUDES THE [facility] Past Medical History Attestation statement: The following information was validated with the patient. Source: old records reviewed Medical History (Updated 07/17/23 @ 14:26 by Faye Landon DO) No known health problems Surgical History (Updated 07/17/23 @ 14:12 by Hawa Randall PA-C) S/P laparoscopic cholecystectomy History of tonsillectomy Social History Social History Household Members: Family Housing: Apartment Do you presently have visiting nurse or other home services: No Comment: nausea much less Patient Tobacco Use Status: Never used Tobacco Tobacco use type: Cigarette Cigarettes Per Day: 2 Years Smoked: 3 e-Cigarette/Vaping Use: Currently Using Substance Use Type: Marijuana service: No Physical Exam ED Vital Signs: Vital Signs - 24 hr 07/17/23 09:06 07/17/23 12:24 07/17/23 14:33 Temperature 98.1 F 98.3 F Pulse Rate 97 69 69 Respiratory Rate 22 H 20 20 Blood Pressure 117/93 H 107/54 L 107/54 L Pulse Oximetry 98 99 99 Oxygen Delivery Method Room Air Room Air Room Air BMI result Body Mass Index 33.2 Appearance: Alert. Oriented X3. in pain crying moderate acute distress. Eyes: Pupils equal, round and reactive to light. ENT: Pharynx normal. Neck: Normal inspection. Neck supple. CVS: Normal heart rate and rhythm. Pulses normal. Respiratory: No respiratory distress. Breath sounds normal. Abdomen: Soft and moderate epigastric ttp no rebound Skin: Skin warm and dry. pale skin color. Normal skin turgor. Extremities: No lower extremity edema. Neuro: Oriented X 3. No motor deficit. No sensory deficit. Course Course Course Narrative: Dr. Enriquez has seen the patient in the ED has reviewed labs and CT scan does not feel she needs admission. Dr. Hanson was consulted but Dr. Enriquez was here so he saw the patient. Medical Decision Making Medical Decision Making [facility] Narrative: 22 yo female with PMH of lap david on 07/02 here with c/o abrupt onset epigastric pain radiating across the abdomen to the back and L shoulder with n/v concerning for possible choledocholithiasis, pancreatitis, retained stone, biloma. At this time, IVF, IV dilaudid for pain, CT scan to assess surgical fossa bed and evidence of stone involvement. Differential Diagnosis Differential Diagnoses: The differential diagnosis associated with the presentation includes retained stone, choledocholithiasis, biloma, pancreatitis Admission/Observation Consideration of admission/observation: Escalation of care including admission/observation considered patient was upset she was moved to the hallway given a critical patient needed monitored bed she pulled out her IV and asked to leave she is alert and oriented x 3, answering questions appropriately but refuses to stay and is asking for paperwork she is leaving prior to ovary US she did get CT scan and to see her surgeon in the ED. Consult Healthcare Provider Management of the patient was discussed with: Drier Helper Lab Data [facility] Lab Attestation statement: I reviewed the patient's lab results. 07/17/23 09:49 07/17/23 09:49 Labs: Lab Results 07/17/23 07/17/23 Range/Units 09:49 12:27 WBC 10.6 (4.8-10.8) X10*3/uL RBC 4.00 L (4.20-5.50) X10*6/uL Hgb 12.1 (12.0-16.0) g/dl Hct 36.6 L (37.0-47.0) % MCV 91.5 (80.0-98.0) fL MCH 30.3 (27.0-33.0) pg MCHC 33.1 (31.0-35.0) g/dl RDW 12.5 (11.0-16.0) % Plt Count 376 (160-400) X10*3/uL MPV 9.0 L (9.4-12.3) fL Immature Gran % (Auto) 0.2 (0.0-0.4) % Neut % (Auto) 72.2 (45-73) % Lymph % (Auto) 19.8 L (20-40) % [place] % (Auto) 4.6 (2-11) % Eos % (Auto) 2.6 (0-4) % Baso % (Auto) 0.6 (0-2) % Lymph # (Auto) 2.1 (1.2-4.9) X10*3/uL [place] # (Auto) 0.5 (0.1-1.2) X10*3/uL Eos # (Auto) 0.3 (0.0-0.4) X10*3/uL Baso # (Auto) 0.1 (0.0-0.2) X10*3/uL Abs Immat Gran (auto) 0.02 (0.00-0.03) X10*3/uL Absolute Neuts (auto) 7.6 (2.0-8.3) x10*3/uL Absolute Nucleated RBC 0.000 (0.0-0.012) X10*3/uL Nucleated RBC % (auto) 0.0 (0.0-0.2) /100WBC Sodium 138 (135-145) mmol/L Potassium 4.2 (3.3-5.1) mmol/L Chloride 110 H (96-108) mmol/L Carbon Dioxide 23 (22-29) mmol/L Anion Gap 9 L (12-20) BUN 11 (9-16) mg/dL Creatinine 0.72 (0.5-1.4) mg/dL Estim Creat Clear Calc 139.9 Estimated GFR > 60 Random Glucose 104 (60-115) mg/dL Lactic Acid 0.6 (0.5-2.0) mmol/L Calcium 9.1 (8.4-10.2) mg/dL Magnesium 1.9 (1.6-2.6) mg/dL Total Bilirubin 0.7 0.8 (0.0-1.0) mg/dL Direct Bilirubin 0.3 0.5 (0.0-0.5) mg/dL AST 74 H 214 H (5-31) U/L ALT 112 H 187 H (0-31) U/L Alkaline Phosphatase 106 116 (39-117) U/L Total Protein 7.3 6.6 (6.5-8.0) g/dL Albumin 3.9 3.7 (3.5-5.0) g/dL Lipase 13 10 (8-78) U/L Beta HCG, Quant < 2 mIU/mL Independent Interpretation I performed an independent interpretation of an: Ultrasound and CT Scan (no choledocholithiasis) Radiology Impression Discussion of test interpretation with radiology: I have reviewed the radiologist's reading. Independent Historian Clinical information obtained from an independent historian. History obtained from or confirmed by: EMS External Record Review External record reviewed: Inpatient record Prescription Management I considered prescription management with: Other Medications Administered Discontinued Medications Generic Name Dose Route Start Last Admin Trade Name Freq PRN Reason Stop Dose Admin Hydromorphone HCl 1 mg 07/17/23 09:34 07/17/23 09:51 Hydromorphone Hcl 1 Mg/Ml Syringe IVPUSH 07/17/23 09:35 1 mg ONCE ONE Administration Protocol Hydromorphone HCl 1 mg 07/17/23 12:13 07/17/23 12:24 Hydromorphone Hcl 1 Mg/Ml Syringe IVPUSH 07/17/23 12:14 1 mg ONCE ONE Administration Protocol Sodium Chloride 1,000 mls @ 999 mls/hr 07/17/23 09:45 07/17/23 10:58 Ns IV 07/17/23 10:45 Infused .Q1H1M ANGELIQUE Infusion Iohexol 100 ml 07/17/23 11:19 07/17/23 11:19 Iohexol 350 Mg/Ml 100 Ml Infus..Btl IV 07/17/23 11:20 85 ml ONCE ONE Administration Ondansetron HCl 4 mg 07/17/23 09:34 07/17/23 09:51 Ondansetron Hcl 4 Mg/2 Ml Vial IVPUSH 07/17/23 09:35 4 mg ONCE ONE Administration Critical Care Time Critical Care Time Critical Care Time: Yes Total Critical Care Time: 45 Attestation: repeat IV dilaudid x 2, repeat labs, medical consult, review of records I attest to this time spent taking care of the patient Discharge Plan Discharge Clinical Impression: Elevated liver enzymes Abdominal pain Qualifiers: Abdominal location: epigastric Qualified Code(s): R10.13 - Epigastric pain Constipation Qualifiers: Constipation type: drug induced constipation Qualified Code(s): K59.03 - Drug induced constipation Vomiting Qualifiers: Vomiting type: unspecified Nausea presence: with nausea Qualified Code(s): R 11.2 - Nausea with vomiting, unspecified Ovarian cyst Qualifiers: Laterality: right Qualified Code(s): N83.201 - Unspecified ovarian cyst, right side Patient Disposition: Left Against Medical Advice Instructions: Ovarian Cyst (ED), Constipation (ED), Acute Nausea and Vomiting (ED), Abdominal Pain (ED), Against Medical Advice (ED) Additional Instructions: you left prior to complete workup. your ultrasound is pending. Dr. Enriquez saw you in the ED and your liver enzymes were elevated but CT scan was normal. you need to repeat liver function tests and follow up with him in one week. you are constipated. Medications were sent to the pharmacy for nausea and constipation. You can return at any time if you feel worse - more pain, fevers, inability to eat or drink, yellow eyes or any concerns. your ovarian cyst study is pending please follow up with your OBGYN. avoid tylenol and alcohol at this time Prescriptions: New senna 8.6 mg capsule 8.6 mg PO BEDTIME PRN (Reason: constipation) Qty: 30 0RF docusate sodium [Colace] 100 mg capsule 100 mg PO BID PRN (Reason: constipation) Qty: 30 0RF ondansetron 4 mg tablet,disintegrating 4 mg PO Q8H PRN (Reason: nausea and vomiting) Qty: 20 0RF No Action nicotine 14 mg/24 hr patch 24 hour 1 patch topical DAILY acetaminophen 500 mg tablet 1,000 mg PO Q6H PRN (Reason: fever) Hold Instructions: Resume on 07/07/23. do not take while taking hydrocodone/acetaminophen. ibuprofen 600 mg tablet 600 mg PO TID hydrocodone-acetaminophen 5-325 mg tablet 1 tab PO Q4-6H PRN (Reason: pain) Qty: 30 0RF Rx Instructions: Partial Fill upon patient request. Referrals: Elia Enriquez MD [Physician] - 1 week Lisa Sam NP [Primary Care Provider] - Stand Alone Forms: Work/School Release Interventions: ED Discharge Assessment Last Done: 07/17/23 14:33 Discharge Date/Time: 07/17/23 14:36
[2023-07-17] MEDS: HYDROmorphone HCl 1 MG/ML SYRINGE IVPUSH ×2 (09:51→12:24)
[2023-07-17] MEDS: ondansetron HCL 4 MG/2 ML VIAL IVPUSH (09:51)
[2023-07-17] MEDS: 0.9 % Sodium Chloride 1,000 ML 999 ML IV (09:51)
[2023-07-17 09:53] LABS: MANUAL DIFF FLAG NO
[2023-07-17 09:55] LABS: Basophils Absolute Auto 0.1 X10*3/uL (0.0-0.2); Basophils Percent Auto 0.6 % (0-2); Eosinophils Absolute Auto 0.3 X10*3/uL (0.0-0.4); Eosinophils Percent Auto 2.6 % (0-4); Hematocrit 36.6 % (37.0-47.0); Hemoglobin 12.1 g/dl (12.0-16.0); Imm Gran Abs Auto 0.02 X10*3/uL (0.00-0.03); Imm Gran Pct Auto 0.2 % (0.0-0.4); Lymphocytes Absolute Auto 2.1 X10*3/uL (1.2-4.9); Lymphocytes Percent Auto 19.8 % (20-40); Mean Corpuscular HGB Conc 33.1 g/dl (31.0-35.0); Mean Corpuscular Hemoglobin 30.3 pg (27.0-33.0); Mean Corpuscular Volume 91.5 fL (80.0-98.0); Monocytes Absolute Auto 0.5 X10*3/uL (0.1-1.2); Monocytes Percent Auto 4.6 % (2-11); Neutrophils Absolute Auto 7.6 x10*3/uL (2.0-8.3); Neutrophils Percent Auto 72.2 % (45-73); Platelet Count 376 X10*3/uL (160-400); Red Cell Distribution Width 12.5 % (11.0-16.0); White Blood Count 10.6 X10*3/uL (4.8-10.8)
[2023-07-17 10:04] LABS: Lactic Acid 0.6 mmol/L (0.5-2.0)
[2023-07-17 10:09] LABS: Alanine Aminotransferase 112 U/L (0-31); Albumin Level 3.9 g/dL (3.5-5.0); Alkaline Phosphatase 106 U/L (39-117); Anion Gap 9 (12-20); Aspartate Amino Transferase 74 U/L (5-31); Bilirubin Direct 0.3 mg/dL (0.0-0.5); Bilirubin Total 0.7 mg/dL (0.0-1.0); Blood Urea Nitrogen 11 mg/dL (9-16); Calcium 9.1 mg/dL (8.4-10.2); Carbon Dioxide 23 mmol/L (22-29); Chloride 110 mmol/L (96-108); Creatinine Clr Calc Pharmacy 139.9; Estimated Glomerular Filt Rate > 60; Glucose Random 104 mg/dL (60-115); Lipase 13 U/L (8-78); Magnesium 1.9 mg/dL (1.6-2.6); Potassium 4.2 mmol/L (3.3-5.1); Sodium 138 mmol/L (135-145); Total Protein 7.3 g/dL (6.5-8.0)
[2023-07-17 10:19] LABS: HCG Quantitative < 2 mIU/mL
[2023-07-17] MEDS: iohexoL 350 MG/ML 100 ML INFUS..BTL IV (11:19)
[2023-07-17 12:24] VITALS: BP 107/54; PULSE 69; RESP 20; O2SAT 99
[2023-07-17 12:51] LABS: Alanine Aminotransferase 187 U/L (0-31); Albumin Level 3.7 g/dL (3.5-5.0); Alkaline Phosphatase 116 U/L (39-117); Aspartate Amino Transferase 214 U/L (5-31); Bilirubin Direct 0.5 mg/dL (0.0-0.5); Bilirubin Total 0.8 mg/dL (0.0-1.0); Lipase 10 U/L (8-78); Total Protein 6.6 g/dL (6.5-8.0)
--- NOTE | 2023-07-17 14:03 | P.CONGS_ITS ---
History of Present Illness Consult details Consult date: 07/17/23 Narrative: Jaimee Marshall is a 22 year old female who presents with epigastric abdominal pain. Pain began last night after eating dinner and was severe in nature. It was associated with nausea and vomiting. She had a recent history of laparoscopic cholecystectomy on 07/03/23 for acute cholecystitis. Procedure itself and her post operative course was uncomplicated and she had been doing well following the procedure. She had been passing flatus and moving her bowels normally. Due to the severity of pain, she presented to the ED for evaluation. Work up included CBC, BMP, LFTs which was significant for mildly elevated transaminases. WBC count and bilirubin was normal. CT scan was performed which showed mild fat stranding surrounding the gallbladder fossa. She denies fever, chills, diarrhea. She feels somewhat improved now. Review of Systems 2 Constitutional: Constitutional: Denies chills and Denies fever(s) ENT: Denies dizziness Cardiovascular: Cardiovascular: Denies chest pain and Denies dyspnea Respiratory: Respiratory: Denies dyspnea Gastrointestinal: Gastrointestinal: Reports as per HPI Genitourinary: Genitourinary: Denies hematuria and Denies dysuria Integumentary/Breasts: Skin/Breast: Denies rash and Denies jaundice Neurologic: Denies dizziness [facility] Past Medical History Medical History (Updated 07/17/23 @ 14:13 by Hawa Randall PA-C) No known health problems Surgical History Surgical History (Updated 07/17/23 @ 14:12 by Hawa Randall PA-C) S/P laparoscopic cholecystectomy History of tonsillectomy Social History Social History Household Members: Family Housing: Apartment Do you presently have visiting nurse or other home services: No Comment: nausea much less Patient Tobacco Use Status: Never used Tobacco Tobacco use type: Cigarette Cigarettes Per Day: 2 Years Smoked: 3 Smoked in Last 30 Days: Yes e-Cigarette/Vaping Use: Currently Using Use of substances other than those prescribed or required for medical reasons: Yes Substance Use Type: Marijuana Advance Directives: No Advance Directives Information Provided: Yes Patient : No service: No Meds Allergies Allergy/AdvReac Type Severity Reaction Status Date / Time No Known Allergies Allergy Verified 03/22/24 09:33 Home Medications Medication Instructions Recorded Confirmed Last Taken Type acetaminophen 500 mg tablet 1,000 mg PO Q6H PRN fever 07/02/23 07/02/23 Unknown History ibuprofen 600 mg tablet 600 mg PO TID 07/02/23 07/02/23 Unknown History nicotine 14 mg/24 hr daily 1 patch topical DAILY 07/02/23 07/02/23 07/02/23 History transdermal patch Physical Exam 2 Vital Signs: Vital Signs: Last Vital Signs Temp 98.1 F 07/17/23 09:06 Pulse 69 07/17/23 12:24 Resp 20 07/17/23 12:24 BP 107/54 L 07/17/23 12:24 Pulse Ox 99 07/17/23 12:24 O2 Del Method Room Air 07/17/23 12:24 BMI result Body Mass Index 33.2 Const: General: comfortable, no acute distress and alert O rientation/consciousness: patient oriented x3 Resp: Effort & Inspection: normal respiratory effort and no respiratory distress GI: Inspection: No distended and Yes incision (well healed, no erythema ) P alpation (GI): Soft to palpation, Tenderness to palpation present (GI) (very mild epigastric ), no guarding and not rigid Percussion: Yes normal to percussion Skin: General skin exam: no rashes or lesions noted and no jaundice Neuro: General: patient oriented x3 and moves all extremities Results Labs 07/17/23 09:49 07/17/23 09:49 Labs: Abnormal lab results 07/17/23 07/17/23 Range/Units 09:49 12:27 RBC 4.00 L (4.20-5.50) X10*6/uL Hct 36.6 L (37.0-47.0) % MPV 9.0 L (9.4-12.3) fL Lymph % (Auto) 19.8 L (20-40) % Chloride 110 H (96-108) mmol/L Anion Gap 9 L (12-20) AST 74 H 214 H (5-31) U/L ALT 112 H 187 H (0-31) U/L Short CBC 07/17/23 Range/Units 09:49 WBC 10.6 (4.8-10.8) X10*3/uL Hgb 12.1 (12.0-16.0) g/dl Hct 36.6 L (37.0-47.0) % Plt Count 376 (160-400) X10*3/uL BMP 07/17/23 09:49 Sodium 138 Potassium 4.2 Chloride 110 H Carbon Dioxide 23 BUN 11 Creatinine 0.72 Calcium 9.1 Liver Function 07/17/23 07/17/23 Range/Units 09:49 12:27 Total Bilirubin 0.7 0.8 (0.0-1.0) mg/dL Direct Bilirubin 0.3 0.5 (0.0-0.5) mg/dL AST 74 H 214 H (5-31) U/L ALT 112 H 187 H (0-31) U/L Alkaline Phosphatase 106 116 (39-117) U/L Albumin 3.9 3.7 (3.5-5.0) g/dL All other labs normal. Imaging Abdomen CT scan report/results: report reviewed and image reviewed Assessment and Plan (1) Abdominal pain: Status: Acute Plan 22 year old female 2 weeks s/p laparoscopic cholecystectomy presenting with epigastric pain for 1 day with mildly elevated transaminases. She is nontoxic appearing with an overall benign abd exam without any peritoneal signs. CT scan does not show CBD dilatation or fluid collection in the gallbladder fosse and her bilirubin and WBC count is normal. No acute surgical issues. If pain remains improved, can discharge to home with f/u in office in [address] Enriquez. Can dc on bowel regimen for constipation. Procedures Date of Service Date of Service: 07/17/23
--- NOTE | 2023-07-17 14:20 | PM.DS ---
DS: Providers Provider Date of Service: 07/04/23 Date of discharge: 07/04/23 Primary care physician: Lisa Sam NP Attending physician on admission: Elia Enriquez Attending physician on discharge: Anoop Hanson DS: Diagnosis Discharge Diagnosis (1) Abdominal pain: Status: Acute DS: Summary Hospital Course Hospital Course: HPI AT ADMISSION: Jaimee Marshall is a 22 year old female with no significant PMH who presented to the ED with complaints of RUQ abdominal pain. She reports this current episode began Thursday. She was seen at an urgent care and sent home. The pain persisted and she began vomiting yesterday prompting her to seek care in the ED. She reports multiple previous episodes of similar pain in the past couple of years that have resolved spontaneously. She was seen at the general surgery office and was in the process of being scheduled for laparoscopic cholecystectomy for recurrent biliary colic. Work up in the ED included CBC, BMP and LFTs which were all WNL and ABD US that showed a 1.9 cm impacted gallstone is present in the gallbladder neck with associated mild wall thickening at 5 mm and a positive ultrasonic Benitez's sign. This morning she continues to have RUQ pain. She wants to have her gallbladder removed during this stay. HOSPITAL COURSE: She was admitted to the surgical service for further treatment. Patient wanted to proceed with laparscopic cholecystectomy during her stay. On 07/03/23, a laparoscopic cholecystectomy was performed by Dr. Enriquez without complication. The patient tolerated the procedure well. She had an uneventful post operative course. On POD #1, she felt well with good pain control. She was tolerating a solid diet and ambulating without difficulty. Her abdomen was benign with appropriate post op tenderness and clean/intact dressings. She felt ready for discharge to home. She was discharged to home on 07/04/23 in stable condition. She is to follow up with Dr. Enriquez in 1 week in the office. Status at Discharge Functional status at discharge: independent ambulation Overall status at discharge: patient is progressing back to baseline Time Attestation Discharge Coordination Time (in mins): 25 Quality: Safe Use of Opioids Does Pt have an Active Cancer Diagnosis on the Problem List?: No Quality: Stroke Does the patient have a stroke diagnosis?: No Physical Exam Vital Signs: Vital Signs: Last Vital Signs Temp 98.1 F 07/17/23 09:06 Pulse 69 07/17/23 12:24 Resp 20 07/17/23 12:24 BP 107/54 L 07/17/23 12:24 Pulse Ox 99 07/17/23 12:24 O2 Del Method Room Air 07/17/23 12:24 BMI result Body Mass Index 33.2 Const: General: comfortable, no acute distress and alert Orientation/consciousness: patient oriented x3 Resp: Effort & Inspection: normal respiratory effort GI: Inspection: No distended and Yes incision (dressing c/d/i) Palpation (GI): Soft to palpation, Tenderness to palpation present (GI) (mild incisional) and no guarding Neuro: General: patient oriented x3 and moves all extremities DS: Data Data Completed and Pending Completed studies during hospitalization [Text1]: Procedures Resection of Gallbladder, Percutaneous Endoscopic Approach (07/02/23) Labs on day of discharge: Laboratory Results - last 24 hr 07/17/23 07/17/23 09:49 12:27 WBC 10.6 RBC 4.00 L Hgb 12.1 Hct 36.6 L MCV 91.5 MCH 30.3 MCHC 33.1 RDW 12.5 Plt Count 376 MPV 9.0 L Immature Gran % (Auto) 0.2 Neut % (Auto) 72.2 Lymph % (Auto) 19.8 L [place] % (Auto) 4.6 Eos % (Auto) 2.6 Baso % (Auto) 0.6 Lymph # (Auto) 2.1 [place] # (Auto) 0.5 Eos # (Auto) 0.3 Baso # (Auto) 0.1 Abs Immat Gran (auto) 0.02 Absolute Neuts (auto) 7.6 Absolute Nucleated RBC 0.000 Nucleated RBC % (auto) 0.0 Sodium 138 Potassium 4.2 Chloride 110 H Carbon Dioxide 23 Anion Gap 9 L BUN 11 Creatinine 0.72 Estim Creat Clear Calc 139.9 Estimated GFR > 60 Random Glucose 104 Lactic Acid 0.6 Calcium 9.1 Magnesium 1.9 Total Bilirubin 0.7 0.8 Direct Bilirubin 0.3 0.5 AST 74 H 214 H ALT 112 H 187 H Alkaline Phosphatase 106 116 Total Protein 7.3 6.6 Albumin 3.9 3.7 Lipase 13 10 Beta HCG, Quant < 2 Discharge Plan Discharge Prescriptions: No Action nicotine 14 mg/24 hr patch 24 hour 1 patch topical DAILY acetaminophen 500 mg tablet 1,000 mg PO Q6H PRN (Reason: fever) Hold Instructions: Resume on 07/07/23. do not take while taking hydrocodone/acetaminophen. ibuprofen 600 mg tablet 600 mg PO TID hydrocodone-acetaminophen 5-325 mg tablet 1 tab PO Q4-6H PRN (Reason: pain) Qty: 30 0RF Rx Instructions: Partial Fill upon patient request. Referrals: Lisa Sam METALLURGICAL LABORATORY ASSISTANT [Primary Care Provider] -
[2023-07-17 14:33] VITALS: BP 107/54; PULSE 69; RESP 20; TEMP 36.8; O2SAT 99
== END 2023-07-17 14:36 | disposition left against medical advice (07) ==
PROVIDERS: Emergency Provider Emergency Medicine; PCP Nurse Practitioner Primary Care
DX: R10.13 Epigastric pain (principal); R11.2 Nausea with vomiting, unspecified; R74.8 Abnormal levels of other serum enzymes; N83.201 Unspecified ovarian cyst, right side; K59.03 Drug induced constipation; T50.905A Adverse effect of unspecified drugs, medicaments and biological substances, initial encounter; Y92.9 Unspecified place or not applicable; Z90.49 Acquired absence of other specified parts of digestive tract
CPT/HCPCS: 36415; 74177; 76830; 76856; 80048; 80076; 83605; 83690; 83735; 84702; 85025; 93975; 96361; 96374; 96375; 96376; 99284; J1170; J2405; Q9967

== ENCOUNTER → 2023-07-17 09:16 | Outpatient (BNV) | payer OTHER, SELFPAY | PROVIDERS: Emergency Provider Emergency Medicine; PCP Nurse Practitioner Primary Care; Visit Provider Physician Assistant Surgical | DX: R10.9 Unspecified abdominal pain (principal) | CPT/HCPCS: 99024 ==

== ENCOUNTER 2023-07-20 10:43 | Emergency (ER) | payer OTHER, SELFPAY ==
--- NOTE | 2023-07-20 10:46 | ECG_ITS ---
Test Reason : cp Blood Pressure : / mmHG Vent. Rate : 085 BPM Atrial Rate : 085 BPM P-R Int : 138 ms QRS Dur : 074 ms QT Int : 366 ms P-R-T Axes : 044 045 049 degrees QTc Int : 435 ms Normal sinus rhythm Normal ECG When compared with ECG of 15-JAN-2022 13:16, No significant change was found Referred By: Generic ED Physician Electronically Signed By:Cory Carreno
[2023-07-20 11:37] VITALS: BP 132/58; PULSE 73; RESP 18; TEMP 36.7; O2SAT 100; BMI 33.6
--- NOTE | 2023-07-20 11:37 | ED.GENADULT ---
HPI - General Adult General Chief complaint: General Medical Stated complaint: chest back and abd pain Time Seen by Provider: 07/20/23 21:14 Source: patient Mode of arrival: ambulatory Limitations: no limitations History of Present Illness HPI narrative: Patient Post cholecystectomy on 07/03/2023 been here 2 times for the continuation of the pain chest pain and shortness of breath multiple complaints no nausea no vomiting patient was seen here on 07/[address] scan of the abdomen Doppler of the abdomen showing 2.[address] scan showed negative CBD dilatation or stone patient has slightly elevated LFTs with normal bilirubin has been seen by surgeon and GI upset here that she been here for and nothing has been done last time patient left against medical advice Related Data Home Medications Medication Instructions Recorded Confirmed acetaminophen 500 mg tablet 1,000 mg PO Q6H PRN fever 07/02/23 07/02/23 ibuprofen 600 mg tablet 600 mg PO TID 07/02/23 07/02/23 nicotine 14 mg/24 hr daily 1 patch topical DAILY 07/02/23 07/02/23 transdermal patch Previous Rx's Medication Instructions Recorded hydrocodone 5 mg-acetaminophen 325 1 tab PO Q4-6H PRN pain #30 tabs 07/03/23 mg tablet docusate sodium 100 mg capsule 100 mg PO BID PRN constipation #30 07/17/23 (Colace) caps ondansetron 4 mg disintegrating 4 mg PO Q8H PRN nausea and 07/17/23 tablet vomiting #20 tabs sennosides 8.6 mg capsule (senna) 8.6 mg PO BEDTIME PRN constipation 07/17/23 #30 caps Allergies Allergy/AdvReac Type Severity Reaction Status Date / Time No Known Allergies Allergy Verified 07/17/23 09:33 Review of Systems Review of Systems: Yes all other systems are reviewed and are negative PMFSH Past Medical History Medical History No known health problems Surgical History S/P laparoscopic cholecystectomy History of tonsillectomy Social History Social History Household Members: Family Housing: Apartment Do you presently have visiting nurse or other home services: No Comment: nausea much less Patient Tobacco Use Status: Never used Tobacco Tobacco use type: Cigarette Cigarettes Per Day: 2 Years Smoked: 3 e-Cigarette/Vaping Use: Currently Using Substance Use Type: Marijuana Advance Directives: No Advance Directives Information Provided: No service: No Physical Exam ED Vital Signs: Vital Signs - 24 hr 07/20/23 11:37 07/20/23 20:55 07/20/23 21:23 Temperature 98.0 F 98.3 F 98.1 F Pulse Rate 73 88 54 Respiratory Rate 18 16 16 Blood Pressure 132/58 L 129/71 130/91 H Pulse Oximetry 100 99 97 Oxygen Delivery Method Room Air Room Air Room Air 07/20/23 22:00 Temperature 98.1 F Pulse Rate 54 Respiratory Rate 16 Blood Pressure 130/91 H Pulse Oximetry 97 Oxygen Delivery Method Room Air BMI result Body Mass Index 33.6 Appearance: Alert. Oriented X3. No acute distress. Eyes: No pallor or icterus ENT: Pharynx normal. Oral Mucosa moist Neck: Normal inspection. Neck supple. CVS: Normal heart rate and rhythm. Pulses normal. Respiratory: No respiratory distress. Equal air entry bilateral, no wheezing/rales/rhonchi Abdomen: Soft and mild right upper quadrant tenderness no rebound tenderness or guarding Bowel sounds are present, no mass palpable, no CVA tenderness Skin: Skin warm and dry. Normal skin color. Normal skin turgor. Extremities: No lower extremity edema. No calf tenderness Neuro: Oriented X 3. Course Course Course Narrative: RME performed by Kiley Ahumada PA-C. Patient is a 22 year old assigned female at presenting to the emergency department with epigastric pain. Detailed physical exam and review of systems are deferred to the emergency department clinician. Labs and swabs ordered. Patient placed back in the waiting room pending room availability and results. Medical Decision Making Medical Decision Making MDM Narrative: Patient with slightly elevated LFTs post Jacky's part of the surgery previous CT scans postop son were essentially negative except for right ovarian cyst have constipation patient has been followed by surgeon and GI advised to follow-up with GI for further management Differential Diagnosis Differential Diagnoses: The differential diagnosis associated with the presentation includes Chronic pain postop/persistent elevated LFT postop Lab Data [facility] Lab Attestation statement: I reviewed the patient's lab results. 07/20/23 12:12 03/25/24 12:12 Labs: Lab Results 07/20/23 Range/Units 12:12 WBC 8.3 (4.8-10.8) X10*3/uL RBC 4.00 L (4.20-5.50) X10*6/uL Hgb 11.9 L (12.0-16.0) g/dl Hct 37.1 (37.0-47.0) % MCV 92.8 (80.0-98.0) fL MCH 29.8 (27.0-33.0) pg MCHC 32.1 (31.0-35.0) g/dl RDW 12.6 (11.0-16.0) % Plt Count 401 H (160-400) X10*3/uL MPV 9.0 L (9.4-12.3) fL Immature Gran % (Auto) 0.1 (0.0-0.4) % Neut % (Auto) 60.4 (45-73) % Lymph % (Auto) 31.8 (20-40) % [place] % (Auto) 5.9 (2-11) % Eos % (Auto) 1.3 (0-4) % Baso % (Auto) 0.5 (0-2) % Lymph # (Auto) 2.6 (1.2-4.9) X10*3/uL [place] # (Auto) 0.5 (0.1-1.2) X10*3/uL Eos # (Auto) 0.1 (0.0-0.4) X10*3/uL Baso # (Auto) 0.0 (0.0-0.2) X10*3/uL Abs Immat Gran (auto) 0.01 (0.00-0.03) X10*3/uL Absolute Neuts (auto) 5.0 (2.0-8.3) x10*3/uL Absolute Nucleated RBC 0.000 (0.0-0.012) X10*3/uL Nucleated RBC % (auto) 0.0 (0.0-0.2) /100WBC Sodium 141 (135-145) mmol/L Potassium 3.4 (3.3-5.1) mmol/L Chloride 107 (96-108) mmol/L Carbon Dioxide 25 (22-29) mmol/L Anion Gap 12 (12-20) BUN 9 (9-16) mg/dL Creatinine 0.71 (0.5-1.4) mg/dL Estim Creat Clear Calc 142.6 Estimated GFR > 60 Random Glucose 103 (60-115) mg/dL Calcium 9.4 (8.4-10.2) mg/dL Magnesium 2.0 (1.6-2.6) mg/dL Total Bilirubin 0.7 (0.0-1.0) mg/dL AST 199 H (5-31) U/L ALT 223 H (0-31) U/L Alkaline Phosphatase 139 H (39-117) U/L Total Protein 7.5 (6.5-8.0) g/dL Albumin 4.2 (3.5-5.0) g/dL Lipase 11 (8-78) U/L Beta HCG, Quant < 2 mIU/mL Influenza Type A (PCR) NEGATIVE (Negative) Influenza Type B (PCR) NEGATIVE (Negative) RSV RNA Qual (PCR) NEGATIVE (Negative) SARS-CoV-2 RNA (RT-PCR) NEGATIVE (Negative) Discharge Plan Discharge Clinical Impression: Abdominal pain Patient Disposition: Home, Self-Care Instructions: Abdominal Pain (ED) Additional Instructions: Follow with biodiesel engineering manager for further management of elevated enzymes elevated liver functions which could be seen as part of surgery You need serial blood test to check on liver function tests Prescriptions: No Action nicotine 14 mg/24 hr patch 24 hour 1 patch topical DAILY acetaminophen 500 mg tablet 1,000 mg PO Q6H PRN (Reason: fever) Hold Instructions: Resume on 07/07/23. do not take while taking hydrocodone/acetaminophen. ibuprofen 600 mg tablet 600 mg PO TID hydrocodone-acetaminophen 5-325 mg tablet 1 tab PO Q4-6H PRN (Reason: pain) Qty: 30 0RF Rx Instructions: Partial Fill upon patient request. senna 8.6 mg capsule 8.6 mg PO BEDTIME PRN (Reason: constipation) Qty: 30 0RF docusate sodium [Colace] 100 mg capsule 100 mg PO BID PRN (Reason: constipation) Qty: 30 0RF ondansetron 4 mg tablet,disintegrating 4 mg PO Q8H PRN (Reason: nausea and vomiting) Qty: 20 0RF Referrals: Suyapa Velasquez MD [Physician] - 1 week Stand Alone Forms: Work/School Release Interventions: ED Discharge Assessment Last Done: 07/20/23 22:00 Discharge Date/Time: 07/20/23 21:56
[2023-07-20 12:17] LABS: MANUAL DIFF FLAG NO
[2023-07-20 12:19] LABS: Basophils Percent Auto 0.5 % (0-2); Eosinophils Absolute Auto 0.1 X10*3/uL (0.0-0.4); Eosinophils Percent Auto 1.3 % (0-4); Hematocrit 37.1 % (37.0-47.0); Hemoglobin 11.9 g/dl (12.0-16.0); Imm Gran Abs Auto 0.01 X10*3/uL (0.00-0.03); Imm Gran Pct Auto 0.1 % (0.0-0.4); Lymphocytes Absolute Auto 2.6 X10*3/uL (1.2-4.9); Lymphocytes Percent Auto 31.8 % (20-40); Mean Corpuscular HGB Conc 32.1 g/dl (31.0-35.0); Mean Corpuscular Hemoglobin 29.8 pg (27.0-33.0); Mean Corpuscular Volume 92.8 fL (80.0-98.0); Monocytes Absolute Auto 0.5 X10*3/uL (0.1-1.2); Monocytes Percent Auto 5.9 % (2-11); Neutrophils Percent Auto 60.4 % (45-73); Platelet Count 401 X10*3/uL (160-400); Red Cell Distribution Width 12.6 % (11.0-16.0); White Blood Count 8.3 X10*3/uL (4.8-10.8)
[2023-07-20 12:53] LABS: Alanine Aminotransferase 223 U/L (0-31); Albumin Level 4.2 g/dL (3.5-5.0); Alkaline Phosphatase 139 U/L (39-117); Anion Gap 12 (12-20); Aspartate Amino Transferase 199 U/L (5-31); Bilirubin Total 0.7 mg/dL (0.0-1.0); Blood Urea Nitrogen 9 mg/dL (9-16); Calcium 9.4 mg/dL (8.4-10.2); Carbon Dioxide 25 mmol/L (22-29); Chloride 107 mmol/L (96-108); Creatinine Clr Calc Pharmacy 142.6; Estimated Glomerular Filt Rate > 60; Glucose Random 103 mg/dL (60-115); Potassium 3.4 mmol/L (3.3-5.1); Sodium 141 mmol/L (135-145); Total Protein 7.5 g/dL (6.5-8.0)
[2023-07-20 12:55] LABS: Influenza A PCR NEGATIVE (Negative); Influenza B PCR NEGATIVE (Negative); Resp Syncy Virus RNA Qual PCR NEGATIVE (Negative); SARS COV2 PCR INHOUSE NEGATIVE (Negative)
[2023-07-20 12:57] LABS: HCG Quantitative < 2 mIU/mL
[2023-07-20 13:41] LABS: Lipase 11 U/L (8-78)
[2023-07-20 20:55] VITALS: BP 129/71; PULSE 88; RESP 16; TEMP 36.8; O2SAT 99
[2023-07-20 21:23] VITALS: BP 130/91; PULSE 54; RESP 16; TEMP 36.7; O2SAT 97
[2023-07-20 22:00] VITALS: BP 130/91; PULSE 54; RESP 16; TEMP 36.7; O2SAT 97
== END 2023-07-20 21:56 | disposition home or self-care (01) ==
PROVIDERS: Emergency Medicine; Physician Assistant Medical; Emergency Provider Internal Medicine; PCP Nurse Practitioner Primary Care
DX: R10.13 Epigastric pain (principal); R07.9 Chest pain, unspecified; Z90.49 Acquired absence of other specified parts of digestive tract; Z11.52 Encounter for screening for COVID-19; Z20.828 Contact with and (suspected) exposure to other viral communicable diseases
CPT/HCPCS: 0241U; 80053; 83690; 83735; 84702; 85025; 93005; 99283; 99284

== ENCOUNTER → 2023-07-20 10:46 | Outpatient (BNV) | payer OTHER, SELFPAY | PROVIDERS: PCP Nurse Practitioner Primary Care; Visit Provider Internal Medicine Cardiovascular Disease | DX: R07.9 Chest pain, unspecified (principal) | CPT/HCPCS: 93010 ==

== ENCOUNTER 2024-03-09 09:36 | Emergency (ER) | payer OTHER, SELFPAY ==
--- NOTE | ~2024-03-09 | CT_ITS ---
EXAMINATION: CT ABDOMEN AND PELVIS WITHOUT CONTRAST CLINICAL INFORMATION: Left flank pain COMPARISON: 07/17/2023 TECHNIQUE: Multidetector volumetric imaging was performed without contrast. No oral contrast material.. Sagittal and coronal reformatted images were obtained on the technologist's workstation. This CT examination was performed using dose optimization techniques as appropriate, variously including the following: *Automated exposure control *Adjustment of mA and/or kV according to patient size (this includes techniques or standardized protocols for targeted exams where dose is matched to indication/reason for exam; i.e. extremities or head) *Use of iterative reconstruction technique DLP: 662 mGy-cm FINDINGS: LUNG BASES: The visualized lung bases are unremarkable. LIVER, GALLBLADDER, AND BILIARY TREE: The liver is normal in size, shape, and attenuation. No focal hepatic lesion or biliary ductal dilatation is present. The gallbladder is surgically absent. PANCREAS: Unremarkable SPLEEN: Unremarkable ADRENAL GLANDS: Unremarkable KIDNEYS AND URETERS: The kidneys are normal in size, shape, and attenuation. No hydronephrosis, hydroureter, or calculi seen. No perinephric stranding. BLADDER: Unremarkable GASTROINTESTINAL TRACT: The small and large bowel are unremarkable. The appendix is unremarkable. ABDOMINAL WALL: No significant hernia is appreciated. LYMPH NODES: Normal VASCULAR: Unremarkable PELVIC VISCERA: Unremarkable OSSEOUS STRUCTURES: Unremarkable CT/CT abdomen pelvis wo IV con IMPRESSION: No acute findings in the abdomen or pelvis. Fleischner guidelines were followed. Electronically signed by: Rohan Nance MD 03/09/2024 04:31 PM [facility]
--- NOTE | ~2024-03-09 | XR_ITS ---
EXAMINATION: XR LUMBOSACRAL SPINE CLINICAL INFORMATION: atraumatic pain COMPARISON: CT abdomen/pelvis 07/17/2023 TECHNIQUE: AP and lateral views of the lumbar spine and lateral view of the lumbosacral junction. FINDINGS: The vertebral bodies and posterior elements are normal. The disc spaces are preserved and the vertebral alignment is normal. Neural foramina are widely patent. The paraspinal soft tissues are normal. Cholecystectomy clips overlie the right upper quadrant. Visualized sacral joints are normal. XR/XR lumbar spine 2-3V IMPRESSION: No acute fracture or malalignment. Electronically signed by: Teresa Mondragon DO 03/09/2024 12:41 PM [facility]
[2024-03-09 09:52] VITALS: BP 121/77; PULSE 93; RESP 20; TEMP 37; O2SAT 98; BMI 33.6
[2024-03-09 14:00] VITALS: BP 113/76; PULSE 80; RESP 12; TEMP 36.6; O2SAT 100
--- NOTE | 2024-03-09 14:06 | ED.BACK ---
HPI - Back Pain/Injury General Chief Complaint: Back Pain/Injury Stated Complaint: Low Back Pain No Injury Time Seen by Provider: 03/09/24 13:44 Source: patient and RN notes reviewed Mode of arrival: ambulatory Limitations: no limitations History of Present Illness ED Provider: Cyndee Arthur PA-C HPI Narrative: This is a 23-year-old female, with a history of cholecystectomy, who presents emergency department with acute onset of left sided flank pain starting this morning at 9:00 a.m.. Patient states that while she was sitting she suddenly developed left-sided flank pain. She states that the pain has been constant, does not radiate. Denies any recent trauma, heavy lifting or falls. She denies any urinary symptoms. No saddle anesthesia. No fevers, chills, abdominal pain. She states that she felt nauseous in the waiting room however states that this since resolved. No bladder or bowel incontinence. Last bowel movement was this morning was normal. No history of kidney stones. Last menstrual period was last week, denies chance of . MD elicited complaint: back pain Similar Symptoms Previously: No Quality: aching Location: left flank Radiation: none Exacerbating factors: movement Relieving factors: none Associated symptoms: denies other symptoms Work related injury: No Related Data Home Medications ?Medication ?Instructions ?Recorded ?Confirmed acetaminophen 500 mg tablet 1,000 mg PO Q6H PRN fever 07/02/23 07/02/23 ibuprofen 600 mg tablet 600 mg PO TID 07/02/23 07/02/23 nicotine 14 mg/24 hr daily 1 patch topical DAILY 07/02/23 07/02/23 transdermal patch Previous Rx's ?Medication ?Instructions ?Recorded hydrocodone 5 mg-acetaminophen 325 1 tab PO Q4-6H PRN pain #30 tabs 07/03/23 mg tablet docusate sodium 100 mg capsule 100 mg PO BID PRN constipation #30 07/17/23 (Colace) caps ondansetron 4 mg disintegrating 4 mg PO Q8H PRN nausea and 07/17/23 tablet vomiting #20 tabs sennosides 8.6 mg capsule (senna) 8.6 mg PO BEDTIME PRN constipation 07/17/23 #30 caps acetaminophen 325 mg tablet 650 mg (2 x 325 mg) PO Q6H PRN 03/09/24 (Tylenol) pain #30 tabs cyclobenzaprine 10 mg tablet 10 mg PO TID #10 tabs 03/09/24 ibuprofen 600 mg tablet 600 mg PO Q6H PRN pain #30 tabs 03/09/24 lidocaine 5 % topical patch 1 patch topical DAILY #30 ea 03/09/24 (Lidoderm) Allergies Allergy/AdvReac Type Severity Reaction Status Date / Time No Known Allergies Allergy Verified 03/09/24 09:54 Review of Systems Review of Systems: Yes all other systems are reviewed and are negative Constitutional: Constitutional: Reports as per [facility] Past Medical History Medical History No known health problems Surgical History S/P laparoscopic cholecystectomy History of tonsillectomy Social History Social History Household Members: Family Housing: Apartment Do you presently have visiting nurse or other home services: No Comment: nausea much less Patient Tobacco Use Status: Never used Tobacco Tobacco use type: Cigarette Cigarettes Per Day: 2 Years Smoked: 3 e-Cigarette/Vaping Use: Currently Using Substance Use Type: Marijuana Advance Directives: No Advance Directives Information Provided: Yes service: No Physical Exam Vital Signs: Vital Signs: Last Vital Signs Temp 97.9 F 03/09/24 14:00 Pulse 80 03/09/24 14:00 Resp 12 03/09/24 14:00 BP 113/76 03/09/24 14:00 Pulse Ox 100 03/09/24 14:00 O2 Del Method Room Air 03/09/24 14:00 BMI result Body Mass Index 33.6 Const: General: cooperative, comfortable and no acute distress Orientation/consciousness: patient oriented x3 Limitations: no limitations HEENT: Head: Yes normal to inspection, Yes normocephalic and Yes atraumatic Ears: hearing grossly normal bilaterally General nose exam: Normal external nose present Face and sinus: Yes normal facial exam Mouth: Normal oral and palatal mucosa present, oropharynx normal and moist mucous membranes Throat: Yes posterior oropharynx normal Eyes: General: appearance normal, both eyes and all related structures Eyelids: Yes eyelids normal Conjunctivae: conjunctivae normal Sclerae: sclerae normal Pupils: Equal, round and reactive pupils present EOM: EOMs intact bilaterally Neck: Neck: Yes normal visual inspection, Yes full ROM and Yes no lymphadenopathy Lymphatic: no lymphadenopathy noted Chest: Chest palpation & inspection: normal inspection of the chest Resp: Effort & Inspection: normal respiratory effort and able to speak in complete sentences Auscultation: clear to auscultation bilaterally, no crackles, no rales, no rhonchi and no wheezes Cardio: Rate: regular rate Rhythm: regular rhythm Heart sounds: S1 normal heart sound present and S2 normal heart sound present GI: Other: Abdomen is soft, nontender, nondistended Inspection: Yes normal to inspection : Other: Positive CVA tenderness on the left Skin: General skin exam: no rashes or lesions noted Trauma: no lacerations or abrasions Wounds: no wounds Neuro: General: patient oriented x3 and moves all extremities Cranial nerves: Yes Equal, round and reactive pupils present Extrem: General: Yes normal to inspection Right upper extremity: normal to inspection Left upper extremity: normal to inspection Right lower extremity: normal to inspection Left lower extremity: normal to inspection Course Reevaluation(s) Reevaluation #1: Patient's symptoms have improved after receiving Toradol injection. CT scan revealing no evidence of kidney stone. Labs returned, no leukocytosis, stable H&H, chemistry within normal limits. She is not , urine does not appear to be infected. Discussed findings with patient. Symptoms likely musculoskeletal in nature. Given strict return precautions. She understands and agrees with plan. Discharged on muscle relaxants, ibuprofen and Tylenol. Patient stable for discharge. Time: 18:00 Medications Administered Discontinued Medications Generic Name Dose Route Start Last Admin Trade Name Freq PRN Reason Stop Dose Admin Sodium Chloride 1,000 mls @ 999 mls/hr 03/09/24 14:50 03/09/24 17:56 Ns IV 03/09/24 15:50 Not Given .Q1H1M ONE Ketorolac Tromethamine 30 mg 03/09/24 15:13 03/09/24 15:29 Ketorolac Tromethamine 30 Mg/Ml Vial IM 03/09/24 15:14 30 mg ONCE ONE Administration Medical Decision Making Medical Decision Making MDM Narrative: This is a 23-year-old female who presents emergency department with complaints of left-sided flank pain which started at 9:00 a.m. this morning. On arrival, vital signs within normal limits. She is speaking full sentences under no acute distress. Patient has exquisite tenderness palpation overlying the left flank, positive CVA tenderness. No urinary symptoms. Given sudden onset as well as left-sided flank pain, concerning for obstructive uropathy. An x-ray of the lumbar spine was ordered prior to my assessment, this revealed no acute abnormalities. Tearful and pain, will obtain labs, UA, CT abdomen and pelvis to rule out obstructive pathology, as well as medicate with Toradol. She was previously nauseous which has since resolved. We will continue to closely monitor. Differential Diagnosis Differential Diagnoses: The differential diagnosis associated with the presentation includes Lumbar strain, spasm, obstructive uropathy, acute cystitis, pyelonephritis Lab Data MDM Lab Attestation statement: I reviewed the patient's lab results. See course comment 03/09/24 14:43 03/09/24 14:43 Labs: Lab Results 03/09/24 03/09/24 Range/Units 14:43 16:11 WBC 8.2 (4.8-10.8) X10*3/uL RBC 4.26 (4.20-5.50) X10*6/uL Hgb 13.1 (12.0-16.0) g/dl Hct 39.4 (37.0-47.0) % MCV 92.5 (80.0-98.0) fL MCH 30.8 (27.0-33.0) pg MCHC 33.2 (31.0-35.0) g/dl RDW 12.4 (11.0-16.0) % Plt Count 360 (160-400) X10*3/uL MPV 8.5 L (9.4-12.3) fL Immature Gran % (Auto) 0.2 (0.0-0.4) % Neut % (Auto) 63.1 (45-73) % Lymph % (Auto) 30.4 (20-40) % [place] % (Auto) 4.8 (2-11) % Eos % (Auto) 0.9 (0-4) % Baso % (Auto) 0.6 (0-2) % Lymph # (Auto) 2.5 (1.2-4.9) X10*3/uL [place] # (Auto) 0.4 (0.1-1.2) X10*3/uL Eos # (Auto) 0.1 (0.0-0.4) X10*3/uL Baso # (Auto) 0.1 (0.0-0.2) X10*3/uL Abs Immat Gran (auto) 0.02 (0.00-0.03) X10*3/uL Absolute Neuts (auto) 5.2 (2.0-8.3) x10*3/uL Absolute Nucleated RBC 0.000 (0.0-0.012) X10*3/uL Nucleated RBC % (auto) 0.0 (0.0-0.2) /100WBC Sodium 137 (135-145) mmol/L Potassium 3.8 (3.3-5.1) mmol/L Chloride 105 (96-108) mmol/L Carbon Dioxide 26 (22-29) mmol/L Anion Gap 10 L (12-20) BUN 13 (9-16) mg/dL Creatinine 0.81 (0.5-1.4) mg/dL Estim Creat Clear Calc 123.8 Estimated GFR > 60 Random Glucose 87 (60-115) mg/dL Calcium 9.8 (8.4-10.2) mg/dL Total Bilirubin 0.7 (0.0-1.0) mg/dL AST 25 (5-31) U/L ALT 35 H (0-31) U/L Alkaline Phosphatase 62 (39-117) U/L Total Protein 8.0 (6.5-8.0) g/dL Albumin 4.3 (3.5-5.0) g/dL Lipase 11 (8-78) U/L Beta HCG, Quant < 2 mIU/mL Urine Color Yellow Urine Appearance Clear Urine pH 5.0 (5.0-9.0) Ur Specific [place] 1.025 (1.005-1.025) Urine Protein Negative (Neg-Trace) mg/dL Urine Glucose (UA) Negative (Negative) mg/dL Urine Ketones Negative (Negative) mg/dL Urine Blood Negative (Negative) Urine Nitrite Negative (Negative) Ur Leukocyte Esterase Negative (Negative) Radiology Impression Discussion of test interpretation with radiology: I have reviewed the radiologist's reading. Radiologist Impression: XR/XR lumbar spine 2-3V IMPRESSION: No acute fracture or malalignment. Electronically signed by: Teresa Mondragon DO 03/09/2024 12:41 PM EST RP Dictated By: Teresa Mondragon XR/XR lumbar spine 2-3V IMPRESSION: No acute fracture or malalignment. Electronically signed by: Teresa Mondragon DO 03/09/2024 12:41 PM EST RP Dictated By: Teresa Mondragon Discharge Plan Discharge Clinical Impression: Spasm of thoracic back muscle Patient Disposition: Home, Self-Care Instructions: Muscle Spasm (ED), Back Pain (ED) Additional Instructions: You were seen in the emergency department due to back pain. Your CT of your abdomen does not show any abnormalities. Your x-ray was reassuring. Your blood work was also reassuring. Likely have a muscle spasm which is causing you to have the symptoms. Please drink plenty of fluids get plenty of rest. Alternate between ibuprofen and Tylenol as needed for pain and symptoms. Flexeril as a muscle relaxants, please take as needed for symptoms. Please be advised that this can cause drowsiness, do not drink alcohol or drive while taking this medication. Follow-up with your primary care physician. If any new or worsening symptoms occur including but not limited to severe chest pain, shortness of breath, please seek emergent care Prescriptions: New ibuprofen 600 mg tablet 600 mg PO Q6H PRN (Reason: pain) Qty: 30 0RF acetaminophen [Tylenol] 325 mg tablet 650 mg PO Q6H PRN (Reason: pain) Qty: 30 0RF cyclobenzaprine 10 mg tablet 10 mg PO TID Qty: 10 0RF lidocaine [Lidoderm] 5 % adhesive patch,medicated 1 patch topical DAILY Qty: 30 0RF Rx Instructions: leave on most painful area for up to 12 hrs No Action nicotine 14 mg/24 hr patch 24 hour 1 patch topical DAILY acetaminophen 500 mg tablet 1,000 mg PO Q6H PRN (Reason: fever) ibuprofen 600 mg tablet 600 mg PO TID hydrocodone-acetaminophen 5-325 mg tablet 1 tab PO Q4-6H PRN (Reason: pain) Qty: 30 0RF Rx Instructions: Partial Fill upon patient request. senna 8.6 mg capsule 8.6 mg PO BEDTIME PRN (Reason: constipation) Qty: 30 0RF docusate sodium [Colace] 100 mg capsule 100 mg PO BID PRN (Reason: constipation) Qty: 30 0RF ondansetron 4 mg tablet,disintegrating 4 mg PO Q8H PRN (Reason: nausea and vomiting) Qty: 20 0RF Stand Alone Forms: Work/School Release Print Language: Swedish
[2024-03-09 14:47] LABS: MANUAL DIFF FLAG NO
[2024-03-09 14:48] LABS: Basophils Absolute Auto 0.1 X10*3/uL (0.0-0.2); Basophils Percent Auto 0.6 % (0-2); Eosinophils Absolute Auto 0.1 X10*3/uL (0.0-0.4); Eosinophils Percent Auto 0.9 % (0-4); Hematocrit 39.4 % (37.0-47.0); Hemoglobin 13.1 g/dl (12.0-16.0); Imm Gran Abs Auto 0.02 X10*3/uL (0.00-0.03); Imm Gran Pct Auto 0.2 % (0.0-0.4); Lymphocytes Absolute Auto 2.5 X10*3/uL (1.2-4.9); Lymphocytes Percent Auto 30.4 % (20-40); Mean Corpuscular HGB Conc 33.2 g/dl (31.0-35.0); Mean Corpuscular Hemoglobin 30.8 pg (27.0-33.0); Mean Corpuscular Volume 92.5 fL (80.0-98.0); Mean Platelet Volume 8.5 fL (9.4-12.3); Monocytes Absolute Auto 0.4 X10*3/uL (0.1-1.2); Monocytes Percent Auto 4.8 % (2-11); Neutrophils Absolute Auto 5.2 x10*3/uL (2.0-8.3); Neutrophils Percent Auto 63.1 % (45-73); Platelet Count 360 X10*3/uL (160-400); Red Blood Count 4.26 X10*6/uL (4.20-5.50); Red Cell Distribution Width 12.4 % (11.0-16.0); White Blood Count 8.2 X10*3/uL (4.8-10.8)
[2024-03-09 15:03] LABS: Alanine Aminotransferase 35 U/L (0-31); Albumin Level 4.3 g/dL (3.5-5.0); Alkaline Phosphatase 62 U/L (39-117); Anion Gap 10 (12-20); Aspartate Amino Transferase 25 U/L (5-31); Bilirubin Total 0.7 mg/dL (0.0-1.0); Blood Urea Nitrogen 13 mg/dL (9-16); Calcium 9.8 mg/dL (8.4-10.2); Carbon Dioxide 26 mmol/L (22-29); Chloride 105 mmol/L (96-108); Creatinine Clr Calc Pharmacy 123.8; Estimated Glomerular Filt Rate > 60; Glucose Random 87 mg/dL (60-115); Lipase 11 U/L (8-78); Potassium 3.8 mmol/L (3.3-5.1); Sodium 137 mmol/L (135-145)
[2024-03-09 15:08] LABS: HCG Quantitative < 2 mIU/mL
[2024-03-09] MEDS: Ketorolac Tromethamine 30 MG/ML VIAL IM (15:29)
[2024-03-09 16:22] LABS: Appearance Urine Clear; Color Urine Yellow; Glucose Urine UA Negative (Negative); Leukocyte Esterase Urine Negative (Negative); Nitrite Urine Negative (Negative); Specific Gravity - Urine 1.025 (1.005-1.025); Urine Blood Negative (Negative); Urine Ketones Negative (Negative); Urine Protein Negative (Neg-Trace)
[2024-03-09 18:13] VITALS: BP 113/76; PULSE 80; RESP 12; TEMP 36.6; O2SAT 100
== END 2024-03-09 18:13 | disposition home or self-care (01) ==
PROVIDERS: Physician Assistant Medical; Emergency Provider Student in an Organized Health Care Education/Training Program; PCP Nurse Practitioner Primary Care
DX: M62.830 Muscle spasm of back (principal); R10.2 Pelvic and perineal pain; Z79.899 Other long term (current) drug therapy
CPT/HCPCS: 36415; 72100; 74176; 80053; 81003; 83690; 84702; 85025; 96372; 99283; 99284; J1885

== ENCOUNTER 2024-07-19 09:30 | Outpatient (REF) | payer MEDICAID, SELFPAY ==
[2024-07-21 19:44] LABS: C. trachomatis RNA TMA NOT DETECTED (NOT DETECTED); N. gonorrhoeae RNA TMA NOT DETECTED (NOT DETECTED)
[2024-07-27 14:28] LABS: Trichomonas (NAAT) NOT DETECTED
== END 2024-07-19 09:31 | disposition home or self-care (01) ==
LOC: HO.LNP 09:30
PROVIDERS: Visit Provider Advanced Practice Midwife
DX: Z12.4 Encounter for screening for malignant neoplasm of cervix (principal); Z11.3 Encounter for screening for infections with a predominantly sexual mode of transmission
CPT/HCPCS: 87491; 87591; 87661; 88175

== ENCOUNTER 2024-07-19 09:31 | Outpatient (REF) | payer MEDICAID, SELFPAY ==
--- OUTSIDE RECORDS SUMMARY | 2024-07-19 10:48 | XMS_ITS | Clinical Summary ---
Author Organization [employer] Address [address] [place] [address] Care Team Providers Care Automobile Assembly Supervisor Name Role Phone Flaco Lisa DAWKINS Primary Care Provider [phone] Allergies No known active allergies Medications nicotine (Nicoderm CQ) 14 MG/24HR patchIndication s:Tobacco use Place 1 patch on the skin 1 (one) time each day at the same time. 30 patch 06/24/2023 Active acetaminophen (Tylenol) 500 MG tablet Take 2 tablets (1,000 mg) by mouth every 6 (six) hours if needed for moderate pain or fever. 30 tablet 07/01/2023 Active chlorhexidine (Peridex) 0.12 % solution Use 15ml twice daily to rinse the mouth. Spit, do not swallow. 473 mL 06/07/2024 Active Vit-Fe Fumarate-FA ( Plus) 27-1 MG tablet One tablet by mouth daily 30 tablet 11 07/19/2024 Active Active Problems Problem Noted Date Diagnosed Date Obesity (BMI 35.0-39.9 without comorbidity) 04/28 History of cholecystectomy 07/09/2023 Assessment & Plan (07/09/2023 6:36 AM EDT): S/p laparoscopic cholecystectomy on 07/03/2023 w no complications . Resolved RUQ pain but w expected pain after surgery and constipation in part from opioids and surgery -I called her surgeon -Dr Enriquez at [phone]- not able to help w scheduling apt for pt for conflict with her working hours --- gave info to pt so she can call today to schedule apt for f up -px senna 1 to 2 tab daily prn , hydration , NSAIDS and tylenol prn ,norco px 7 tab only taking for intense pain HS -alarm signs and symptoms discussed Tobacco use 06/24/2023 Assessment & Plan (06/24/2023 5:02 PM EST): Pt motivated to cut down, has tried patches in the past but still had cravings, not certain of dx, trial 14 mg patch Medication Indications, side effects and duration of therapy reviewed, pt aware to call clinic for worsening symptoms or failure to resolve Unprotected sex 06/24/2023 Assessment & Plan (06/24/2023 5:04 PM EST): Options regarding prevention reviewed, pt declines methods today, Gc.chl ordered, poct hcg ordered, Dysuria 06/24/2023 Assessment & Plan (06/24/2023 5:04 PM EST): Hx of utis, reports early symptoms 3 days ago which have improved, Culture ordered . Cholelithiasis 04/22/2023 Overview (04/22/2023): Referred to Dr. enriquez from [facility] 04/21/23 Assessment & Plan (06/24/2023 5:02 PM EST): Plan for surgery, see assessment below Inguinal lymphadenitis 06/13/2022 Encounters Date Type Department Care Team Description 07/19/2024 9:00 AM EDT Procedure Visit [facility] [address] [place] [phone] Gwendolyn Da Silva CNM Cervical cancer screening (Primary Dx); Dysmenorrhea; Procreative management; Screening examination for venereal disease; Vulvar abscess 07/19/2024 Travel 07/11/2024 Telephone [facility] [address] [place] [address] Gwendolyn Da Silva CNM 07/04/2024 8:00 AM EDT Office Visit [facility] [address] [place] [address] Rosaura Corral Impacted tooth (Primary Dx); Dental calculus; Dental plaque 06/07/2024 9:00 AM EST Office Visit [facility] [address] [place] [address] Dimitry Wolf DDS 05/13/2024 9:45 AM EST Office Visit [facility] [address] [place] [address] Baldev Alfaro MD Obesity (BMI 35.0-39.9 without comorbidity) (Primary Dx); Routine health maintenance; Physical exam 05/13/2024 Travel 05/12/2024 Telephone [facility] [address], [place] [phone] Lisa Sam ANP Chart Prep 05/10/2024 11:30 AM EST Office Visit [facility] [address] [place] [address] Dimitry Wolf DDS from Last 3 Months Immunizations Name Administration Dates Next Due DTaP 01/10/2004, 2,06/23/2000,05/14,02/18/2000 HPV 9-Valent 07/01/2023,06/28/2020 HPV, Quadrivalent 10/23/2011 Hep A, ped/adol, 2 dose 10/23/2011,09/18/2010 Hep B, Adolescent or Pediatric 06/23/2000,1999,02/18/2000 Hep B, adult 07/09/2021,04/16/2021,03/19/2021 Hib (HbOC) 07/29/2001, 1,04/21/2000,02/17 IPV 01/10/2004, 2,06/23/2000,04/21,02/18/2000 Influenza injectable quadriv alent IIV4 with preservative 03/16/2019 Influenza injectable quadriv alent preservative free 07/09/2021 MMR 01/28/2007,01/10/2004 Meningococcal MCV4P [id number]-135 10/23/2011 Tdap 07/01/2023,10/23/2011 Varicella 01/28/2007,12/17/2000 Social History Tobacco Use Types Packs/Day Years Used Date Smoking Tobacco: Some Days Cigarettes Smokeless Tobacco: Never Tobacco Cessation:Ready to Q uit: Not Asked; Counseling Given: Not Answered Alcohol Use Standard Drinks/Week Comments Not Currently 0 (1 standard drink = 0.6 oz pur e alcohol) Depression Answer Date Recorded Patient Health Questionnaire-9 Score 0 06/24/2023 Patient Health Questionnaire-9 Score 0 06/24/2023 Last PHQ-9: Questionnaire Data Not on file 0 06/24/2023 Housing Stability Answer Date Recorded What is your housing situation today? 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 Do you have problems with any of the following? None of the above 06/24/2023 Food Insecurity Answer Date Recorded Within the past 12 months, y ou worried that your food would run out before you got money to buy more: Never True 06/24/2023 Within the past 12 months,th e food you bought just didn't last and you didn't have enough money to get more: Never True Transportation Answer Date Recorded In the past 12 months, has l ack of transportation kept you from medical appts, meetings, work or from getting things needed for daily living? No 06/24/2023 Utilities Answer Date Recorded In the past 12 months, has t he electric, gas, oil or water company threatened to shut off services in your home? No 06/24/2023 Depression Answer Date Recorded Patient Health Questionnaire-2 Score 0 06/24/2023 Comments No Sex and Gender Information Value Date Recorded Sex Assigned at Female 02/24/2022 10:18 AM EDT Legal Sex Female 10:18 AM EDT Gender Identity Female 02/24/2022 10:18 AM EDT Sexual Orientation Straight 10/17/2022 4: 34 PM EDT Last Filed Vital Signs Vital Sign Reading Time Taken Comments Blood Pressure 134/82 07/19/2024 9:13 AM EDT Pulse 110 07/19/2024 9:13 AM EDT Temperature 36.5 ??C (97.7 ??F) 07/19/2024 9:13 AM ED T Respiratory Rate 16 07/19/2024 9:13 AM EDT Oxygen Saturation 98% 07/19/2024 9:13 AM EDT Inhaled Oxygen Concentration - - Weight 105 kg (231 lb 9.6 oz) 07/19/2024 9:13 AM EDT Height 167.6 cm (5' 6 ) 07/19/2024 9:13 AM EDT Body Mass Index 37.38 07/19/2024 9:13 AM EDT Plan of Treatment Upcoming Encounters Date Type Department Care Team (Late st Contact Info) Description 07/27/2024 9:00 AM EDT Office Visit [facility] [address] [place] [address] Gwendolyn Da Silva CNM [address] [place] [address] 08/16/2024 10:00 AM EDT Office Visit [facility] [address] [place] [address] Dimitry Wolf DDS [address] [place] [address] 01/05/2025 8:00 AM EDT Office Visit [facility] [address] [place] [address] Rosaura Corral Health Maintenance Due Date Last Done Comments Pneumococcal Vaccine: Pediatrics (0 to 5 Years) and At-Risk Patients (6 to 49) Years) (1 of 2 - PCV) 12/17/2018 COVID-19 Vaccine (1 - season) 2023 Influenza Vaccine (#1) 2023 07/09/2021, 2018 Depression Screening 06/24/2024 06/24/2023, 06/24/19 SDOH Screening 06/24/2024 06/24/2023 Pap Smear 06/27/2024 06/27/2021, 06/27/2021 Dental Oral Exam 01/05/2025 07/04/2024 Dental Prophylaxis 01/05/2025 07/04/2024, 05/20/2021 Alcohol/Substance Use Screening 05/13/2025 05/13/2024 Dental X-Ray: Bitewings 07/05/2025 07/05/19, 05/20/2021, 03/16/2019 Family Planning (PISQ) 07/19/2025 07/19/2024 Tobacco Screening 07/19/2025 07/19/2024 Dental X-Ray: Full Mouth 07/06/2027 025, 05/10/2024, 05/20/2021 Lipid Panel 05/13/2029 05/13/2024 DTaP/Tdap/Td Vaccines (8 - Td or Tdap) 06/30/2033 07/01/2023, 10/23/2011, 01/10/2004, Additional history exists Zoster Vaccines (1 of 2) 12/17/2049 RSV Patients and Patients Aged 60 years or older (1 - 1-dose 75+ series) 12/17/2074 HIB Vaccines Completed 07/29/2001, 05/29, 04/21/2000, Additional history exists IPV Vaccines Completed 01/10/2004, 07/2001, 06/23/2000, Additional history exists Hepatitis A Vaccines Completed 10/23/2011, 09/19/19 11 Meningococcal Vaccine Aged Out 10/23/2011 No zac kenan eligible based on patient's age to complete this topic Hepatitis B Vaccines Completed 07/09/2021, 04/16/2021, 03/19/2021, Additional history exists HPV Vaccines Completed 07/01/2023, 07/2020, 10/23/2011 HIV Screening Completed 05/13/2024, 08/27, 06/26/2020, Additional history exists Hepatitis C Screening Completed 05/13/2024 , 09/23/2022, 06/26/2020, Additional history exists RSV under 20 months Aged Out No longe r eligible based on patient's age to complete this topic Rotavirus Vaccines Aged Out No longer eligible based on patient's age to complete this topic Procedures Procedure Name Priority Date/Time Associated Diagnosis Comments ORAL HYGIENE INSTRUCTIONS Routine 07/04/2024 8:00 AM EDT Dental calculus Dental plaque INTRAORAL - COMPLETE SERIES OF RADIOGRAPHIC IMAGES Routine 07/04/2024 8:00 AM EDT PROPHYLAXIS - ADULT Routine 07/04/2024 8 :00 AM EDT Dental calculus Dental plaque CASE PRESENTATION, DETAILED AND EXTENSIVE TREATMENT PLANNING Routine 07/04/2024 8:00 AM EDT COMPREHENSIVE ORAL EVALUATION - NEW OR ESTABLISHED PATIENT Routine 07/04/2024 8:00 AM EDT CASE PRESENTATION, DETAILED AND EXTENSIVE TREATMENT PLANNING Routine 06/07/2024 9:00 AM EST 19 O RESIN-BASED COMPOSITE - 1 SURF, POSTERIOR Routine 06/07/2024 9:00 AM EST 18 O RESIN-BASED COMPOSITE - 1 SURF, POSTERIOR Routine 06/07/2024 9:00 AM EST T-SPOT(R).TB Routine 05/13/2024 11:02 AM EST Routine health maintenance SYPHILIS SCREEN Routine 05/13/2024 11:02 AM EST Obesity (BMI 35.0-39.9 without comorbidity) HEPATITIS C AB W/REFL TO HCV RNA, QN, PCR Routine 05/13/2024 11:02 AM EST Obesity (BMI 35.0-39.9 without comorbidity) HIV 1/2 ANTIGEN/ANTIBODY, FOURTH GENERATION W/RFL Routine 05/13/2024 11:02 AM EST Obesity (BMI 35.0-39.9 without comorbidity) HEMOGLOBIN A1C Routine 05/13/2024 11:02 AM EST Obesity (BMI 35.0-39.9 without comorbidity) TSH W/REFLEX TO FT4 Routine 05/13/2024 1 1:02 AM EST Obesity (BMI 35.0-39.9 without comorbidity) LIPID PANEL, STANDARD Routine 05/13/2024 11:02 AM EST Obesity (BMI 35.0-39.9 without comorbidity) COMPREHENSIVE METABOLIC PANEL Routine 05/13/2024 11:02 AM EST Obesity (BMI 35.0-39.9 without comorbidity) CBC WITH AUTO DIFFERENTIAL Routine 05/13/2024 11:02 AM EST Obesity (BMI 35.0-39.9 without comorbidity) PANORAMIC RADIOGRAPHIC IMAGE Routine 05/10/2024 11:30 AM EST PALLIATIVE (EMERGENCY) TREATMENT OF DENTAL PAIN - MINOR PROCEDURE Routine 05/10/2024 11:30 AM EST PAP SMEAR Routine 06/27/2021 12:00 AM EST from Last 3 Months or Most Recently Relevant to Health Maintenance Results * Syphilis Screen (05/13/2024 11:02 AM EST) Syphilis Screen Nonreactive Nonreactive [facility] Blood 05/13/2024 11:0 2 AM EST 05/13/2024 2:12 PM EST Baldev Dowling MD LAB BLOOD ORDERABL ES Final Result [facility] [address] [place] [phone] * T-SPOT??.TB (05/13/2024 11:02 AM EST) T Spot TB Negative Negative [facility] Comment:A negative test resu lt does not exclude the possibilityof exposure to or infection with Mycobacteriumtuberculosis (M. tuberculosis). Patients with recentexposure to TB infected individuals exhibiting anegative T-SPOT.TB result should be considered forretesting within 6 weeks or if other relevant clinicalsymptoms indicate. Results from T-SPOT.TB testing mustbe used in conjunction with each individual'sepidemiological history, current medical status,and results of other diagnostic evaluations.The T-SPOT.TB test is qualitative and results arereported as positive, borderline, or negative, giventhat the test controls perform as expected. In linewith the Centers for Disease Control and Prevention's2010 recommendation to report quantitative measurementsalongside the qualitative result, the laboratoryprovides spot counts for informational purposes only.The T-SPOT.TB test should not be interpreted as aquantitative test. TS PANEL A 0 [facility] TS PANEL B 2 [facility] Negative Control Passed [facility] Positive Control Passed [facility] Comment:For additional infor alex, please refer tohttp://education.Splick.it/faq/LTK300(This link is being provided for informational/educational purposes only.)THIS TEST WAS PERFORMED AT:[employer] [place] [address]ECULIZSADRIANA RODRIGUEZ MD,PHD 05/13/2024 11:0 2 AM EST 05/13/2024 2:12 PM EST Baldev Dowling MD LAB BLOOD ORDERABL ES Final Result Performing Organization Address [facility]/ZIP Co de Phone Number [facility] [address] [place] [phone] * TSH W/Reflex to FT4 (05/13/2024 11:02 AM EST) TSH reflex Free T4 2.05 0.32 - 4.0 uIU/mL [facility] Blood Venous blood specimen / Unknown 05/13/2024 11:02 AM EST 05/13/2024 2:12 PM EST Baldev Dowling MD LAB BLOOD ORDERABL ES Final Result Performing Organization Address [facility]/ZIP Co de Phone Number [facility] [address] [place] [phone] * (ABNORMAL) CBC auto differential (05/13/2024 11:02 AM EST) White Blood Count 8.5 4.8 - 10.8 X10*3/uL [facility] Red Blood Count 4.13(L) 4.20 - 5.50 X10*6/uL [facility] Hemoglobin 12.4 12.0 - 16.0 g/dl [facility] Hematocrit 37.7 37.0 - 47.0 % [facility] Mean Corpuscular Volume 91.3 80.0 - 98.0 fL [facility] Mean Corpuscular Hemoglobin 30.0 27.0 - 33.0 pg [facility] Mean Corpuscular HGB Conc 32.9 31.0 - 35.0 g/dl [facility] Red Cell Distribution Width 12.1 11.0 - 16.0 % [facility] Platelet Count 430(H) 160 - 400 X10*3/uL [facility] Mean Platelet Volume 9.1(L) 9.4 - 12.3 fL [facility] Neutrophils Percent Auto 62.9 45 - 73 % [facility] Imm Gran Pct Auto 0.4 0.0 - 0.4 % [facility] Lymphocytes Percent Auto 30.4 20 - 40 % [facility] Monocytes Percent Auto 5.2 2 - 11 % [facility] Eosinophils Percent Auto 0.6 0 - 4 % [facility] Basophils Percent Auto 0.5 0 - 2 % [facility] NRBC Pct Auto 0.0 0.0 - 0.2 /100WBC [facility] Neutrophils Absolute Auto 5.4 2.0 - 8.3 x10*3/uL [facility] Imm Gran Abs Auto 0.03 0.00 - 0.03 X10*3/uL [facility] Lymphocytes Absolute Auto 2.6 1.2 - 4.9 X10*3/uL [facility] Monocytes Absolute Auto 0.4 0.1 - 1.2 X10*3/uL [facility] Eosinophils Absolute Auto 0.1 0.0 - 0.4 X10*3/uL [facility] Basophils Absolute Auto 0.0 0.0 - 0.2 X10*3/uL [facility] NRBC Abs Auto 0.000 0.0 - 0.012 X10*3/uL [facility] Blood Venous blood specimen / Unknown 05/13/2024 11:02 AM EST 05/13/2024 2:15 PM EST us Baldev Dowling MD LAB BLOOD ORDERABL ES Final Result [facility] [address] [place] [phone] * Hepatitis C Antibody with Reflex to HCV, RNA, Quantitative, Real-Time PCR (05/13/2024 11:02 AM EST) Pathologist [facility] Hepatitis C Antibody Nonreactive Nonreactive [facility] Comment:Antibodies to HCV no t detected; does not exclude early acuteHCV infection. Blood Venous blood specimen / Unknown 05/13/2024 11:02 AM EST 05/13/2024 2:12 PM EST us Baldev Dowling MD LAB BLOOD ORDERABL ES Final Result Performing Organization Address [facility]/ZIP Co de Phone Number [facility] [address] [place] [phone] * HIV-1/2 Antigen and Antibodies, Fourth Generation, with Reflexes (05/13/2024 11:02 AM EST) [facility] HIV AB/AG Nonreactive Nonreactive [facility] Comment:HIV-1 p24 Ag and/or HIV-1/HIV-2 Ab not detected.A test result that is nonreactive does not exclude thepossibility of exposure to or infection with HIV-1 and/orHIV-2. Nonreactive results in this assay for individualswith prior exposure to HIV-1 and/or HIV-2 may be due toantigen and antibody levels that are below the limit ofdetection of this assay.[employer] HIV Ag/Ab Combo assay result andsupplemental assay results should be interpreted inconjunction with the patient's clinical presentation,history and other laboratory results. If the results areinconsistent with clinical evidence, additional testing issuggested to confirm the result. Blood Venous blood specimen / Unknown 05/13/2024 11:02 AM EST 05/13/2024 2:12 PM EST us Baldev Dowling MD LAB BLOOD ORDERABL ES Final Result Performing Organization Address City/[facility]/ZIP Co de Phone Number [facility] [address] [place] [phone] * Hemoglobin A1c (05/13/2024 11:02 AM EST) Hemoglobin A1c 5.5 <6.0 % [facility] Comment:Hemoglobin A1C Refer ence Range Adults: 4.8 - 6.0 % Non diabetic: < 6.0 % Goal: < 7.0 %Additional Action Suggested: > 8.0 %Note: Hemoglobin A1c results are invalid for patients with abnormal amounts of HbF. Blood transfusions may impact the HbA1c concentration in the patient sample. Estimated Average Glucose 111 mg/dL [facility] Comment:eAG = Estimated ave rage glucose which is %A1C expressed asaverage glucose, using the formula of the M1P-JcwamlvVjxxmgh Glucose study (ADAG), Diabetes Care, Vol.31,#8,Nov. 2007 Blood Venous blood specimen / Unknown 05/13/2024 11:02 AM EST 05/13/2024 2:15 PM EST Baldev Dowling MD LAB BLOOD ORDERABL ES Final Result [facility] [address] [place] [phone] * Lipid Panel, Standard (05/13/2024 11:02 AM EST) Triglycerides 46 <150 mg/dL [facility] Comment:Desirable Triglyceri de: less than 150 mg/dLBorderline High Triglyceride 150-199 mg/dLHigh Triglyceride: 200-499 mg/dLVery High Triglyceride: greater than or equal to 5OO mg/dL Cholesterol 131 <200 mg/dL [facility] Comment:Desirable Cholestero l: less than 200 mg/dLBorderline High Cholesterol: 200-239 mg/dLHigh Cholesterol: greater than 239 mg/dL LDL Cholesterol Calculated 69 <100 mg/dL [facility] Comment:Desirable LDL: less than 100 mg/dLNear Optimal/Above Optimal LDL: 110- 129 mg/dLBorderline High LDL: 130-159 mg/dLHigh LDL: 160-189 mg/dLVery High LDL: greater than or equal to 190 mg/dL HDL Cholesterol 53 >40 mg/dL [facility] Comment:Desirable HDL: great er than 40 mg/dL Note: This HDL assay may give artificially low results in patients with liver disease. Blood Venous blood specimen / Unknown 05/13/2024 11:02 AM EST 05/13/2024 2:12 PM EST us Baldev Dowling MD LAB BLOOD ORDERABL ES Final Result [facility] [address] [place] [phone] [phone] * (ABNORMAL) Comprehensive Metabolic Panel (05/13/2024 11:02 AM EST) Sodium 139 135 - 145 mmol/L [facility] Potassium 3.8 3.3 - 5.1 mmol/L [facility] Chloride 108 96 - 108 mmol/L [facility] Carbon Dioxide 28 22 - 29 mmol/L [facility] Anion Gap 7(L) 12 - 20 [facility] Urea Nitrogen (BUN) 13 9 - 16 mg/dL [facility] Creatinine, Serum 0.75 0.5 - 1.4 mg/dL [facility] Estimated Glomerular Filt Rate >60 [facility] Comment:Chronic Kidney Disea se: Estimated GFR < 60 mL/min/1.52i9Kdcolq Kidney Disease: Estimated GFR < 15 mL/min/1.73m2 Glucose 87 60 - 115 mg/dL [facility] Calcium 9.3 8.4 - 10.2 mg/dL [facility] Bilirubin, Total 0.7 0.0 - 1.0 mg/dL [facility] Aspartate Amino Transferase 31 5 - 31 U/L [facility] Alanine Aminotransferase 39(H) 0 - 31 U/L [facility] Total Protein 8.3(H) 6.5 - 8.0 g/dL [facility] Albumin Level 4.4 3.5 - 5.0 g/dL [facility] Alkaline Phosphatase 67 39 - 117 U/L [facility] Blood Venous blood specimen / Unknown 05/13/2024 11:02 AM EST 05/13/2024 2:12 PM EST us Baldev Dowling MD LAB BLOOD ORDERABL ES Final Result [facility] [address] [place] [phone] * Pap Smear (06/27/2021 12:00 AM EST) Swab us Gwendolyn Da Silva CNM LAB CYTOLOGY ORDERABLES F inal Result [facility] [address], [place] [phone] from Last 3 Months or Most Recently Relevant to Health Maintenance Insurance [facility] , [address] [place] [address] [facility] - H[facility] FULL (MEDICAID) Care Teams Automobile Assembly Supervisor Relationship Specialty Start Date End Date Lisa Sam ANP [address] [place] [phone] PCP - General Family Medicine 06/14/19
--- OUTSIDE RECORDS SUMMARY | 2024-07-19 10:48 | XMS_ITS | Encounter Summary ---
Author Organization [employer] Address [address] [place] [address] Care Team Providers Care Last Remodeler Repairer Name Role Phone Lisa Sam JUANCHO Primary Care Provider [phone] Encounter Details Date Type Department Care Team (Latest Contact Info) Description 07/19/2024 Travel Social History Tobacco Use Types Packs/Day Years Used Date Smoking Tobacco: Some Days Cigarettes Smokeless Tobacco: Never Alcohol Use Standard Drinks/Week Comments Not Currently [...] Orientation Straight 10/17/2022 4: 34 PM EDT documented as of this encounter Plan of Treatment Upcoming Encounters Date Type Department Care Team (Late st Contact Info) Description 07/27/2024 9:00 AM EDT Office Visit [facility] [address] [place] [address] Gwendolyn Da Silva CNM [address] [place] [address] 08/16/2024 10:00 AM EDT Office Visit [facility] [address] [place] [address] Dimitry Wolf, DDS [address] [place] [address] 01/05/2025 8:00 AM EDT Office Visit [facility] [address] [place] [address] Rosaura Corral documented as of this encounter Visit Diagnoses Not on filedocumented in this encounter Additional Health Concerns Assessment Noted Time PHQ-9 Depression Total Score: 0 06/24/19 24 10:01 AM EST documented as of this encounter Care Teams Last Remodeler Repairer Relationship Specialty Start Date End Date Lisa Sam ANP [address] [place] [address] PCP - General Family Medicine 06/14/19 documented as of this encounter
--- OUTSIDE RECORDS SUMMARY | 2024-07-19 10:48 | XMS_ITS | Encounter Summary ---
Author Organization [employer] Address [address] [place] [address] Care Team Providers Care Relations Manager Name Role Phone Flaco Lisa DAWKINS Primary Care Provider [phone] Encounter Details Date Type Department Care Team (Late st Contact Info) Description 07/11/2024 Telephone [facility] MEDICINE [address] [place] [address] Gwendolyn Da Silva CNM [address] [place] [address] Social History Tobacco Use Types Packs/Day Years Used Date Smoking Tobacco: Some Days Cigarettes Smokeless Tobacco: Never Depression Answer Date Recorded Patient Health Questionnaire-9 [...] PM EDT documented as of this encounter Miscellaneous Notes * Telephone Encounter - Bre Reddy - 07/11/2024 11:22 AM EDT Pt no showed to apt on 07/11/2024 letter will be sent out. documented in this encounter Plan of Treatment Upcoming Encounters Date Type Department Care Team (Late st Contact Info) Description 07/27/2024 9:00 AM EDT Office Visit [facility] MEDICINE [address] [place] [address] Gwendolyn Da Silva CNM [address] [place] [address] 08/16/2024 10:00 AM EDT Office Visit [facility] ADULT DENTAL [address] [place] [address] Dimitry Wolf DDS [address] [place] [address] 01/05/2025 8:00 AM EDT Office Visit [facility] ADULT DENTAL [address] [place] [address] Rosaura Corral documented as of this encounter Visit Diagnoses Not on filedocumented in this encounter Additional Health Concerns Assessment Noted Time PHQ-9 Depression Total Score: 0 06/24/19 24 10:01 AM EST documented as of this encounter Care Teams Relations Manager Relationship Specialty Start Date End Date Lisa Sam ANP [address] [place] [address] PCP - General Family Medicine 06/14/19 documented as of this encounter
--- OUTSIDE RECORDS SUMMARY | 2024-07-19 10:48 | XMS_ITS | Encounter Summary ---
Author Organization [employer] Address [address] [place] [address] Care Team Providers Care Screening Representative Name Role Phone Lisa Sam JUANCHO Primary Care Provider [phone] Reason for Visit * Reason Comments Routine Cleaning Dental Exam Encounter Details Date Type Department Care Team (Late st Contact Info) Description 07/04/2024 8:00 AM EDT Office Visit [facility] ADULT DENTAL [address] [place] [address] Rosaura Corral Impacted tooth (Primary Dx); Dental calculus; Dental plaque Social History Tobacco Use Types Packs/Day Years [...] PM EDT documented as of this encounter Last Filed Vital Signs Vital Sign Reading Time Taken Comments Blood Pressure 130/82 07/04/2024 8:06 AM EDT Pulse - - Temperature - - Respiratory Rate - - Oxygen Saturation - - Inhaled Oxygen Concentration - - Weight - - Height - - Body Mass Index - - documented in this encounter Progress Notes * Emiliana Cruz DDS - 07/04/2024 8:00 AM EDT Dental procedures in this visit D1110 - PROPHYLAXIS - ADULT D0150 - COMPREHENSIVE ORAL EVALUATION - NEW OR ESTABLISHED PATIENT (Completed) Service provider: Emiliana Cruz DDS Billing provider: Emiliana Cruz DDS Patient ID: Jaimee Marshall is a 23 y.o. female. Time Out: Timeout Date: 07/04/24, Timeout Time: 804 (Dental Prophy Adult) Location: [facility] Tooth: Maxilla and Mandible Procedure: Exam, X-rays, and Prophylaxis Verified the above with patient, travel assistant, and provider. Confirmed via patient's chart, intraorally and by radiographs. Wood Fence Installer: not applicable Chief Complaint Patient presents with Routine Cleaning Dental Exam Medical Hx: Vitals: Blood pressure 130/82. History reviewed. No pertinent past medical history. Medications: Outpatient Encounter Medications as of 07/04/2024 Medication Sig Dispense Refill acetaminophen (Tylenol) 500 MG tablet Take 2 tablets (1,000 mg) by mouth every 6 (six) hours if needed for moderate pain or fever. 30 tablet 0 chlorhexidine (Peridex) 0.12 % solution Use 15ml twice daily to rinse the mouth. Spit, do not swallow. 473 mL 0 nicotine (Nicoderm CQ) 14 MG/24HR patch Place 1 patch on the skin 1 (one) time each day at the sametime. 30 patch 0 No facility-administered encounter medications on file as of 07/04/2024. Objective HPI Soft Tissue Exam No findings documented this visit Head and Neck Exam: Lymph Nodes, Lips, Palate, Buccal Mucosa, Floor of Mouth, Tongue, Tonsils, Alveolar Ridges, Oropharynx, Salivary Ducts, and Vestibules - no significant findings observed OCS: negative Dental Exam Radiographic Interpretation: Associated radiographs for today's visit were reviewed and finding(s) were discussed with the patient. Findings include: heavy calculus, deep pockets, BOP, poor OH, inflammation of gums generalized; caries Hard Tissue Exam: Decay noted - see charting and treatment plan Perio Dx: Generalized Chronic Periodontitis Stage: II Grade: B Reference tooth chart for additional findings. Oral Cancer Risk: Low Risk Oral Hygiene Instructions: [place] two times daily, modified brooks technique, Floss daily, Soft bristle toothbrush, [place] Tongue Caries Risk Assessment: Medium- one risk factor Assessment/Plan SRPs Toribio Patient tolerated procedure well, all questions answered and expressed understanding. Dismissed in good condition. NV: SRPs Toribio Burner Tender: Rosaura Corral Dentist: Emiliana Cruz DDS * Rosaura Corral - 07/04/2024 8:00 AM EDT Patient ID: Jaimee Marshall is a 23 y.o. female. Time Out: Timeout Date: 07/04/24, Timeout Time: 0805 (Dental Prophy Adult) Location: [facility] Tooth: Maxilla and Mandible Procedure: Exam, X-rays, and Prophylaxis Verified the above with patient, travel assistant, and provider. Confirmed via patient's chart, intraorally and by radiographs. Wood Fence Installer: not applicable Medical Hx: Vitals: Blood pressure 130/82. Medications, Med Hx reviewed with patient and updated in chart. Treatment Provided Dental procedures in this visit D0150 - COMPREHENSIVE ORAL EVALUATION - NEW OR ESTABLISHED PATIENT (Completed) Service provider: Emiliana Cruz DDS Billing provider: Emiliana Cruz DDS D1110 - PROPHYLAXIS - ADULT (Completed) Service provider: Rosaura Corral Billing provider: Emiliana Cruz DDS D0210 - INTRAORAL - COMPLETE SERIES OF RADIOGRAPHIC IMAGES (Completed) Service provider: Rosaura Corral Billing provider: Emiliana Cruz DDS D1330 - ORAL HYGIENE INSTRUCTIONS (Completed) Service provider: Rosaura Corral Billing provider: Emiliana Cruz DDS D9450 - CASE PRESENTATION, DETAILED AND EXTENSIVE TREATMENT PLANNING (Completed) Service provider: Rosaura Corral Billing provider: Emiliana Cruz DDS Instruments Used: Ultrasonic Scalers, Prophy angle, and floss Fluoride: N/A Oral Cancer Screening: No lesions Head/Neck Exam: No Lesions Calculus: Moderate, Generalized, and Subgingival Plaque: Light and Generalized Stain: None Bleeding: Heavy and Generalized Gingiva: Perio Charting Completed, Bleeding on probing, and Erythematous OH: Poor Perio Chart: Completed Patient presents with periodontal disease. Calculus present Subgingivally, Supragingivally, and Generalized that can be seen radiographically. BOP: Generalized and Heavy Exudate: Not Present Mobility: 0 Generalized Probing Depths Range: 4 to 6 mm Recession: Localized ranging from 1 to 3 mm. Gingiva: Inflamed, Bulbous, and Erythematous Bone loss visible radiographically: Generalized Pre Authorization requested for SRP. SRP treatment needed to promote gingival health, arrest disease progression of periodontal disease and prevent tooth loss. Provider: Rosaura Corral Oral hygiene instructions provided to patient including brushing technique and flossing. Recommendations: [place] two times daily, modified brooks technique, Floss daily, Electric toothbrush, Soft bristle toothbrush, [place] Tongue, Anti-sensitivity toothpaste Recall Frequency: 6 mo NV: Upon SRP approval Hygienist: Rosaura Corral RDH Cosigned by Emiliana Cruz DDS at 07/07/2024 2:13 PM EDT Associated attestation - Emiliana Cruz DDS - 07/07/2024 2:13 PM EDT I have reviewed the documentation and dental procedures made by the rendering provider, Rosaura Corral RDH , and approve their chart entries for this visit. Emiliana Cruz DDS documented in this encounter Plan of Treatment Upcoming Encounters Date Type Department Care Team (Late st Contact Info) Description 07/27/2024 9:00 AM EDT Office Visit [facility] MEDICINE [address] [place] [address] Gwendolyn Da Silva CN [address] [place] [address] 08/16/2024 10:00 AM EDT Office Visit [facility] ADULT DENTAL [address] [place] [address] Dimitry Wolf DDS [address] [place] [address] 01/05/2025 8:00 AM EDT Office Visit [facility] ADULT DENTAL [address] [place] [address] Rosaura Corral Scheduled Orders Name Type Priority Associated Diagnoses Orde r Schedule 2 LO 2 LO RESIN-BASED COMPOSITE - 2 SURF, POSTERIOR Dental Routine [address] arting 07/04/2024 31 O 31 O RESIN-BASED COMPOSITE - 1 SURF, POSTERIOR Dental Routine [address] arting 07/04/2024 UL UL PERIODONTAL SCALING AND ROOT PLANING - 4 OR MORE TEETH PER QUADRANT Dental Routine [address] arting 07/04/2024 LL LL PERIODONTAL SCALING AND ROOT PLANING - 4 OR MORE TEETH PER QUADRANT Dental Routine [address] arting 07/04/2024 UR UR PERIODONTAL SCALING AND ROOT PLANING - 4 OR MORE TEETH PER QUADRANT Dental Routine [address] arting 07/04/2024 LR LR PERIODONTAL SCALING AND ROOT PLANING - 4 OR MORE TEETH PER QUADRANT Dental Routine [address] arting 07/04/2024 documented as of this encounter Procedures Procedure Name Priority Date/Time Associated Diagnosis Comments PROPHYLAXIS - ADULT Routine 07/04/2024 8 :00 AM EDT Dental calculus Dental plaque ORAL HYGIENE INSTRUCTIONS Routine 2024 8:00 AM EDT Dental calculus Dental plaque INTRAORAL - COMPLETE SERIES OF RADIOGRAPHIC IMAGES Routine 07/04/2024 8:00 AM EDT COMPREHENSIVE ORAL EVALUATION - NEW OR ESTABLISHED PATIENT Routine 07/04/2024 8:00 AM EDT CASE PRESENTATION, DETAILED AND EXTENSIVE TREATMENT PLANNING Routine 07/04/2024 8:00 AM EDT documented in this encounter Visit Diagnoses Diagnosis Impacted tooth- Primary Dental calculus Accretions on teeth Dental plaque Accretions on teeth documented in this encounter Additional Health Concerns Assessment Noted Time PHQ-9 Depression Total Score: 0 06/24/19 24 10:01 AM EST documented as of this encounter Care Teams Screening Representative Relationship Specialty Start Date End Date Lisa Sam ANP [address] [place] [address] PCP - General Family Medicine 06/14/19 documented as of this encounter
--- OUTSIDE RECORDS SUMMARY | 2024-07-19 10:48 | XMS_ITS | Encounter Summary ---
Author Organization [employer] Address [address] [place] [address] Care Team Providers Care Silk Trimmer Name Role Phone Lisa Sam JUANCHO Primary Care Provider [phone] Encounter Details Date Type Department Care Team (Latest Contact Info) Description 05/20/2021 Abstract [facility] CONVERSIONS Dental, Provider, DDS Social History Tobacco Use Types Packs/Day Years Used Date Smoking Tobacco: Never Assessed Comments Unknown Sex and Gender Information Value Date Recorded Sex Assigned at Female 02/24/2022 10:18 AM EDT Legal Sex Female 10:18 AM EDT Gender Identity Female 02/24/2022 10:18 AM EDT Sexual Orientation Straight 10/17/2022 4: 34 PM EDT documented as of this encounter Plan of Treatment Upcoming Encounters Date Type Department Care Team (Late st Contact Info) Description 07/27/2024 9:00 AM EDT Office Visit [facility] MEDICINE [address] [place] [address] Gwendolyn Da Silva CNM [address] [place] [address] 08/16/2024 10:00 AM EDT Office Visit [facility] ADULT DENTAL [address] [place] [address] Dimitry Wolf DDS [address] [place] [address] 01/05/2025 8:00 AM EDT Office Visit [facility] ADULT DENTAL [address] [place] [address] Rosaura Corral documented as of this encounter Visit Diagnoses Not on filedocumented in this encounter Care Teams Silk Trimmer Relationship Specialty Start Date End Date Lisa Sam ANP [address] [place] [address] PCP - General Family Medicine 06/14/19 documented as of this encounter
--- OUTSIDE RECORDS SUMMARY | 2024-07-19 10:48 | XMS_ITS | Encounter Summary ---
Author Organization [employer] Address [address] [place] [address] Care Team Providers Care Gold Leaf Laborer Name Role Phone Lisa Sam Primary Care Provider [phone] Reason for Referral * Imaging (Urgent) - Authorized Specialty Diagnoses / Procedures Referred By Contac t Referred To Contact Radiology Diagnoses Dysmenorrhea Procedures Us Pelvis complete Gwendolyn Da Silva CNM [address] [place] [address] Phone: tel: fax: [address] Phone: tel: fax: Referral ID Status Reason Start Date Expiration Date V isits Requested Visits Authorized [id number] Authorized 07/19/2024 07/19/2025 1 1 * Imaging (Urgent) - Authorized Specialty Diagnoses / Procedures Referred By Contac t Referred To Contact Radiology Diagnoses Dysmenorrhea Procedures US Pelvis Transvaginal Gwendolyn Da Silva CNM [address] [place] [address] Phone: tel: fax: [address] Phone: tel: fax: Referral ID Status Reason Start Date Expiration Date V isits Requested Visits Authorized [id number] Authorized 07/19/2024 07/19/2025 1 1 Reason for Visit * Reason Comments Gynecologic Exam Encounter Details Date Type Department Care Team (Latest Contact Info) Description 07/19/2024 9:00 AM EDT Procedure Visit [facility] MEDICINE [address] [place] [address] Gwendolyn Da Silva CNM [address] [place] [address] Cervical cancer screening (Primary Dx); Dysmenorrhea; Procreative management; Screening examination for venereal disease; Vulvar abscess Social History Tobacco Use Types Packs/Day Years [...] Mass Index 37.38 07/19/2024 9:13 AM EDT documented in this encounter Plan of Treatment Upcoming Encounters Date Type Department Care Team (Late st Contact Info) Description 07/27/2024 9:00 AM EDT Office Visit [facility] MEDICINE [address] [place] [address] Gwendolyn Da Silva CNM [address] [place] [address] 08/16/2024 10:00 AM EDT Office Visit [facility] ADULT DENTAL [address] [place] [address] Dimitry Wolf, BRENNAS [address] [place] [address] 01/05/2025 8:00 AM EDT Office Visit [facility] ADULT DENTAL [address] [place] [address] Rosaura Corral Scheduled Orders Name Type Priority Associated Diagnoses Orde r Schedule Pap Smear Pathology and Cytology Routine Cervical cancer screening Ordered: 07/19/2024 STI testing add on (NG, CT, Trich) Pathology and Cytology Routine Screening examination for venereal disease Ordered: 07/19/2024 TSH W/Reflex to FT4 Lab Routine Procreative management Expected: 07/19/2024 (Approximate), Expires: 07/19/2025 Prolactin Lab Routine Procreative management Expected: 07/19/2024 (Approximate), Expires: 07/19/2025 US Pelvis Transvaginal Imaging Urgent Dysmenorrhea Expected: 07/19/2024, Expires: 07/19/2025 Us Pelvis complete Imaging Urgent Dysmenorrhea Expected: 07/19/2024, Expires: 07/19/2025 documented as of this encounter Visit Diagnoses Diagnosis Cervical cancer screening- Primary Screening for malignant neoplasm of the cervix Dysmenorrhea Procreative management Screening examination for venereal disease Vulvar abscess Other abscess of vulva documented in this encounter Additional Health Concerns Assessment Noted Time PHQ-9 Depression Total Score: 0 06/24/19 24 10:01 AM EST documented as of this encounter Care Teams Gold Leaf Laborer Relationship Specialty Start Date End Date Lisa Sam ANP [address] [place] [address] PCP - General Family Medicine 06/14/19 documented as of this encounter
--- OUTSIDE RECORDS SUMMARY | 2024-07-19 10:48 | XMS_ITS | Clinical Summary ---
Author Organization [facility] Address [address] [place] [address] Care Team Providers Care Dictating Machine Transcriber Name Role Phone Unavailable Primary Care Provider Unavailabl e Social History Tobacco Use Types Packs/Day Years Used Date Smoking Tobacco: Never Assessed Comments Unknown Sex and Gender Information Value Date Recorded Sex Assigned at Not on file Legal Sex Female 6:21 PM EST Gender Identity Not on file Sexual Orientation Not on file Plan of Treatment Health Maintenance Due Date Last Done Comments Gonorrhea/Chlamydia Screening 1999 HPV Vaccines (1 - 3-dose series) 12/17/2014 DTaP,Tdap,and Td Vaccines (1 - Tdap) 12/17/2018 Hepatitis B Vaccines (1 of 3 - 19+ 3-dose series) 12/17/2018 Cervical Cancer Screening: P ap Smear 12/17/2020 COVID-19 Vaccine ( - 2023-2 5 season) 2023 Influenza Vaccine (#1) 2023 HIB Vaccines Aged Out No longer eligi ble based on patient's age to complete this topic Hepatitis A Vaccines Aged Out No long er eligible based on patient's age to complete this topic IPV Vaccines Aged Out No longer eligi ble based on patient's age to complete this topic MMR Vaccines Aged Out No longer eligi ble based on patient's age to complete this topic Meningococcal ACWY Vaccine Aged Out N o longer eligible based on patient's age to complete this topic Meningococcal B Vacine Aged Out No lo nger eligible based on patient's age to complete this topic Pneumococcal Vaccine: Pediat rics (0 to 5 Years) and At-Risk Patients (6 to 64 Years) Aged Out No longer eligible b ased on patient's age to complete this topic RSV Immunization Patients Un vick 20 months Aged Out No longer eligible b ased on patient's age to complete this topic Varicella Vaccines Aged Out No longer eligible based on patient's age to complete this topic
[2024-07-19 12:14] LABS: TSH reflex Free T4 1.16 uIU/mL (0.32-4.0)
[2024-07-20 07:23] LABS: Prolactin 9.1 ng/mL
== END 2024-07-19 09:32 | disposition home or self-care (01) ==
LOC: HO.HHCL 09:31
PROVIDERS: Visit Provider Advanced Practice Midwife
DX: Z31.9 Encounter for procreative management, unspecified (principal)
CPT/HCPCS: 36415; 84146; 84443

== ENCOUNTER 2024-07-22 08:06 | Outpatient (REF) | payer OTHER, SELFPAY ==
--- NOTE | ~2024-07-22 | US_ITS ---
EXAMINATION: US PELVIS TRANSABDOMINAL AND TRANSVAGINAL HISTORY: dysmenorrhea COMPARISON: Comparison is made with the prior examination dated 07/15/2023. TECHNIQUE: Transabdominal and endovaginal real-time 2D adler-scale ultrasound was performed. FINDINGS: Uterus: The uterus is normal in size, measuring 7.9 x 3.1 x 4.2 cm. Myometrium has a normal echotexture. No fibroids are identified. Endometrium: The endometrial stripe measures 8 mm in thickness. There is a small amount of fluid in the endometrial cavity. There are nabothian cysts in the cervix which demonstrate calcifications. Right ovary: The right ovary measures 4.2 x 2.4 x 2.6 cm. The right ovary is normal in size and echotexture. There is a 1.2 cm hypoechoic area which likely represents a corpus luteum. Left ovary: The left ovary measures 2.6 x 1.7 x 1.4 cm. The left ovary is normal in size and echotexture. Pelvic fluid: none. US/US pelvic and transvaginal IMPRESSION: Small amount of fluid in the endometrial canal. Nabothian cysts in the cervix. Otherwise unremarkable pelvic ultrasound. Electronically signed by: Ilia Tang MD 07/22/2024 10:06 AM EDT RP
== END 2024-07-22 08:07 | disposition home or self-care (01) ==
LOC: HO.US 08:06
PROVIDERS: PCP Nurse Practitioner Primary Care; Visit Provider Advanced Practice Midwife
DX: N94.6 Dysmenorrhea, unspecified (principal)
CPT/HCPCS: 76830; 76856

== ENCOUNTER → 2024-07-22 08:07 | Outpatient (BNV) | payer OTHER, SELFPAY | PROVIDERS: PCP Nurse Practitioner Primary Care; Visit Provider Radiology Diagnostic Radiology | DX: N94.6 Dysmenorrhea, unspecified (principal) | CPT/HCPCS: 76830; 76856 ==

== ENCOUNTER 2024-09-01 09:57 | Outpatient (REF) | payer OTHER, SELFPAY ==
--- OUTSIDE RECORDS SUMMARY | 2024-09-01 12:26 | XMS_ITS | Clinical Summary ---
Author Organization [employer] Address [address] [facility] [address] [place] [address] Care Team Providers Care Gem Expert Name Role Phone Gilmore Josselyn DAWKINS Primary Care Provider [phone] Allergies No known active allergies Medications nicotine [...] -I called her surgeon -Dr Layne at [phone]- not able to help w scheduling apt [...] Overview (04/22/2023): Referred to Dr. layne from [facility] ED 04/21/23 Assessment & Plan (06/24/2023 5:02 PM EST): Plan for surgery, see assessment below Inguinal lymphadenitis 06/13/2022 Encounters Date Type Department Care Team Description 08/22/2024 9:40 AM EDT Office Visit [facility] [address] [place] [address] Daniel Blackmon MD Acute left-sided low back pain without sciatica (Primary Dx); Acute left-sided thoracic back pain 08/16/2024 10:00 AM EDT Office Visit [facility] [address] [place] [address] Dimitry Wolf, DDS 07/27/2024 9:00 AM EDT Office Visit [facility] [address] [place] [address] Ana Luisa Scruggs CNM Vulvar abscess (Primary Dx); HSIL (high grade squamous intraepithelial lesion) on Pap smear of cervix; Hidradenitis suppurativa 07/27/2024 Travel 07/26/2024 Orders Only [address] [address] Ana Luisa Scruggs CNM HSIL (high grade squamous intraepithelial lesion) on Pap smear of cervix (Primary Dx) 07/19/2024 9:00 AM EDT Procedure Visit [address] [address] Ana Luisa Scruggs CNM Cervical cancer screening (Primary Dx); Dysmenorrhea; Procreative management; Screening examination for venereal disease; Vulvar abscess 07/19/2024 Travel 07/11/[address] [address] Ana Luisa Scruggs CNM 07/04/2024 8:00 AM EDT Office Visit [facility] [address] [place] [address] Rosaura Corral Impacted tooth (Primary Dx); Dental calculus; Dental plaque 06/07/2024 9:00 AM EST Office Visit [facility] [address] [place] [address] Dimitry Wolf DDS from Last 3 Months [...] Description 12/09/2024 9:45 AM EDT Office Visit [facility] [address] [place] [address] Naresh Mario MD [address] [place], [place] [phone] 01/05/2025 8:00 AM EDT Office Visit [facility] [address] [place] [address] Rosaura Corral Health Maintenance Due Date Last [...] EDT Narrative 07/22/2024 10:09 AM EDT ? [facility] ?[address] ?[place] [address] ? Ultrasound Report ? Signed ? Patient: Gorbea Marshall,Jaimee ?MR#: [id number] ?? [id number] ? : 2000 ?Acct:[id number] ? Age/Sex: 23 / F ?ADM Date: 03/28/25 ? Loc: HO.US ? Attending Dr: Ana Luisa Scruggs CNM ? Ordering Physician: ANA LUISA SCRUGGS CNM ?? Date of Service: 07/22/24 ?? Procedure(s): US pelvic and transvaginal ?? Accession Number(s): [id number] ? cc: ANA LUISA SCRUGGS CNM; JOSSELYN [...] DD/ 0820 ? TD/TT: 07/22/24 0840 ? Manager Social Responsibility: ? Procedure Note Cierra, Image - 07/22/[address] [address] Ultrasound Report Signed Patient: Taras Rdz#: [id number] : 2000Acct:[id number] Age/Sex: 23 / FADM Date: 07/22/24 Loc: HO.US Attending Dr: Ana Luisa Scruggs CNM Ordering Physician: AN ALUISA SCRUGGS CNM Date of Service: 07/22/24 Procedure(s): US pelvic and transvaginal Accession Number(s): [id number] cc: ANA LUISA SCRUGGS CNM; JOSSELYN GILMORE [...] 07/22/24 1006 DD/ 0820 TD/TT: 07/22/24 0840 Manager Social Responsibility: Ana Luisa Scruggs CNM IMG US PROCEDURES Final R esult * TSH W/Reflex to FT4 (07/19/2024 9:35 AM EDT) Pathologist [facility] TSH reflex Free T4 1.16 0.32 - 4.0 uIU/mL [facility] Blood Venous blood specimen / Unknown 07/19/2024 9:35 AM EDT 07/19/2024 11:23 AM EDT [facility] BLOOD ORDERABLES Laxmi l Result Performing Organization Address [facility]/ZIP Co de Phone Number [facility] [address] [place] [phone] * Prolactin (07/19/2024 9:35 AM EDT) Pathologist [facility] Prolactin 9.1 ng/mL [facility] Comment:Reference Range Fema les Non- 3.0-30.0 10.0-209.0 Postmenopausal 2.0-20.0THIS TEST WAS PERFORMED AT:[employer] [place] [phone] CARBONE MD Blood Venous blood specimen / Unknown 07/19/2024 9:35 AM EDT 07/19/2024 11:23 AM EDT [facility] BLOOD ORDERABLES Laxmi l Result Performing Organization Address [facility]/ZIP Co de Phone Number [facility] [address] [place] [phone] * STI testing add on (NG, CT, Trich) (07/19/2024 9:30 AM EDT) Pathologist [facility] Trichomonas (NAAT) NOT DETECTED [facility] Comment:REFERENCE RANGE: NOT DETECTEDThe analytical performance characteristics of thisassay, when used to test SurePath(TM) specimens have beendetermined by [email or web address]. The modifications havenot been cleared or approved by the FDA. This assay hasbeen validated pursuant to the CLIA regulations and isused for clinical purposes.For additional information, please refer tohttps://Altocom.ISORG/faq/ZTG665(This link is being provided for information/educational purposes only.)For additional information, please refer tohttp://[employer]ISORG/faq/Trichomonastma(This link is being provided for informational/educational purposes only.)THIS TEST PERFORMED AT:[employer] [address] [phone] DIRECTOR: ROBERTO CARBONE MD CTNG Ref Lab NOT DETECTED NOT DETECTED [facility] NG Ref Lab NOT DETECTED NOT DETECTED [facility] ThinPrep?? vial Cervix uteri structure / Unknown 07/19/2024 9:30 AM EDT 07/20/2024 7:30 AM EDT [facility] - 07/27/2024 2:28 PM EDT Collection Date: [id number] by: JORDI Serrano: Cervix Ana Luisa Scruggs [facility] CYTOLOGY ORDERABLES F inal Result [facility] [address] [place] [phone] [phone] * Pap Smear (07/19/2024 9:30 AM EDT) Swab Cervix uteri structure / Unknown 07/19/2024 9:30 AM EDT 07/20/2024 7:30 AM EDT [facility] - 07/25/2024 3:18 PM EDT ----- ------- Name: Clemente MarshallJohna ? Age/Sex: 23/F ? : 2000 Unit#: [id number] ?? Attend Dr: ANA LUISA SCRUGGS CNM ?Re07/19/24 ?Status: DEP REF ? Location: HO.LNP ?Disch: ? ----- ------- SPEC : [id number] ? RECD: 07/20/24 ? STATUS: ??SOUT ? REQ NUM: [id number] ? NIYA: 07/19/24 ? SUBM DR: ANA [...] OF REPORT ? us Ana Luisa Scruggs [facility] CYTOLOGY ORDERABLES F inal Result [facility] [address] [place] [address] [phone] * Hepatitis C Antibody with Reflex to HCV, RNA, Quantitative, Real-Time PCR (05/13/2024 11:02 AM EST) Hepatitis C Antibody Nonreactive Nonreactive [facility] Comment:Antibodies to HCV no t detected; does not exclude early acuteHCV infection. Blood Venous blood specimen / Unknown 05/13/2024 11:02 AM EST 05/13/2024 2:12 PM EST us Baldev Dowling MD LAB BLOOD ORDERABL ES Final Result [facility] [address] [place] [phone] * HIV-1/2 Antigen and Antibodies, Fourth Generation, with Reflexes (05/13/2024 11:02 AM EST) Pathologist [facility] HIV AB/AG Nonreactive Nonreactive [facility] Comment:HIV-1 p24 Ag and/or HIV-1/HIV-2 Ab not detected.A test result that is nonreactive does not exclude thepossibility of exposure to or infection with HIV-1 and/orHIV-2. Nonreactive results in this assay for individualswith prior exposure to HIV-1 and/or HIV-2 may be due toantigen and antibody levels that are below the limit ofdetection of this assay.The [employer] HIV Ag/Ab Combo assay result andsupplemental assay results should be interpreted inconjunction with the patient's clinical presentation,history and other laboratory results. If the results areinconsistent with clinical evidence, additional testing issuggested to confirm the result. Blood Venous blood specimen / Unknown 05/13/2024 11:02 AM EST 05/13/2024 2:12 PM EST us Baldev Dowling MD LAB BLOOD ORDERABL ES Final Result Performing Organization Address [facility]/State/ZIP Co de Phone Number [facility] [address] [place] [phone] * Lipid Panel, Standard (05/13/2024 11:02 AM EST) Triglycerides 46 <150 mg/dL [facility] Comment:Desirable Triglyceri de: less than 150 mg/dLBorderline High Triglyceride 150-199 mg/dLHigh Triglyceride: 200-499 mg/dLVery High Triglyceride: greater than or equal to 5OO mg/dL Cholesterol 131 <200 mg/dL [facility] Comment:Desirable Cholestero l: less than 200 mg/dLBorderline High Cholesterol: 200-239 mg/dLHigh Cholesterol: greater than 239 mg/dL LDL Cholesterol Calculated 69 <100 mg/dL [facility] Comment:Desirable LDL: less than 100 mg/dLNear Optimal/Above Optimal LDL: 110- 129 mg/dLBorderline High LDL: 130-159 mg/dLHigh LDL: 160-189 mg/dLVery High LDL: greater than or equal to 190 mg/dL HDL Cholesterol 53 >40 mg/dL [facility] Comment:Desirable HDL: great er than 40 mg/dL Note: This HDL assay may give artificially low results in patients with liver disease. Blood Venous blood specimen / Unknown 05/13/2024 11:02 AM EST 05/13/2024 2:12 PM EST Baldev Dowling MD LAB BLOOD ORDERABL ES Final Result [facility] [address] [place] [phone] from Last 3 Months or Most Recently Relevant to Health Maintenance Insurance [facility] - [facility] FULL (MEDICAID) Care Teams Gem Expert Relationship Specialty Start Date End Date Josselyn Gilmore ANP [address] [place] [phone] PCP - General Family Medicine 06/14/19
--- OUTSIDE RECORDS SUMMARY | 2024-09-01 12:26 | XMS_ITS | Encounter Summary ---
Author Organization [employer] Address [address] [facility] [address] [place] [address] Care Team Providers Care Travel Coordinator Name Role Phone Lisa Sam Primary Care Provider [phone] Encounter Details Date Type Department Care Team (Latest Contact Info) Description 05/20/2021 Abstract [facility] CONVERSIONS Dental, Provider, DDS Social History [...] Description 12/09/2024 9:45 AM EDT Office Visit [facility] [address] [place] [address] Naresh Mario MD [address] [place] [address] 01/05/2025 8:00 AM EDT Office Visit [facility] [address] [place] [address] Rosaura Corral documented as of this encounter Visit Diagnoses Not on filedocumented in this encounter Care Teams Travel Coordinator Relationship Specialty Start Date End Date Lisa Sam ANP [address] [place] [address] PCP - General Family Medicine 06/14/19 documented as of this encounter
--- OUTSIDE RECORDS SUMMARY | 2024-09-01 12:26 | XMS_ITS | Clinical Summary ---
Author Organization [facility] Address [address] [place] [address] Care Team Providers Care Painter Name Role Phone Unavailable Primary Care Provider [...]
--- OUTSIDE RECORDS SUMMARY | 2024-09-01 12:26 | XMS_ITS | Encounter Summary ---
Author Organization [employer] Address [address] [facility] [address] [place] [address] Care Team Providers Care Promotions Producer Name Role Phone Flaco Lisa DAWKINS Primary Care Provider [phone] Reason for Visit * Reason Comments Filling Encounter Details Date Type Department Care Team ([facility] st Contact Info) Description 08/16/2024 10:00 AM EDT Office Visit [facility] [address] [place] [address] Dimitry Wolf DDS [address] [place] [address] Social History Tobacco Use Types Packs/Day Years [...] female. Time Out: No data recorded Location: [facility] Tooth: #2 and #31 Procedure: Synagogue Verified the above with patient, logistics assistant, and provider. Confirmed via patient's chart, intraorally and by radiographs. [place] Trimmer: not applicable Chief Complaint Patient presents with [...] Etch Desensitizer: Gluma Liner/Base: None Quintero: I-Quintero Synagogue Material: Paradigm Composite Shade: A2 Polished. Occlusion [...] be monitored in the follow-up visits. [place]: Supervisor Taping: Maria Esther Garcia Dentist: Dimitry Wolf DDS documented in this encounter Plan of Treatment Upcoming Encounters Date Type Department Care Team (Late st Contact Info) Description 12/09/2024 9:45 AM EDT Office Visit [facility] [address] [place] [address] Naresh Mario MD [address] [place] [address] 01/05/2025 8:00 AM EDT Office Visit [facility] [address] [place] [address] Rosaura Corral documented as of this encounter [...] documented as of this encounter Care Teams Promotions Producer Relationship Specialty Start Date End Date Lisa Sam ANP [address] [place] [address] PCP - General Family Medicine 06/14/19 documented as of this encounter
== END 2024-09-01 09:58 | disposition home or self-care (01) ==
LOC: HO.LNP 09:57
PROVIDERS: PCP Nurse Practitioner Primary Care; Visit Provider Obstetrics & Gynecology
DX: R87.613 High grade squamous intraepithelial lesion on cytologic smear of cervix (HGSIL) (principal)
CPT/HCPCS: 57454; 81025; 88305; 88341; 88342

== ENCOUNTER 2024-09-01 09:57 | Outpatient (AMB) | payer OTHER, SELFPAY ==
[2024-09-01 10:03] VITALS: BP 120/80; BMI 38.7
--- NOTE | 2024-09-01 10:03 | MHC.OFFVIS ---
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 Terry Cloth Cutter Hand Required: No Information Interpreted: non-clinical & clinical Websphere Process Server Developer: Websphere Process Server Developer Present (Jammie MAJANO) Accompanied by: Self / Same As Patient Allergies No Known Allergies Allergy (Verified 03/09/24 09:54) Is last menstrual period known: Yes HPI Comments Details: The patient is presenting for evaluation of an abnormal pap high-grade BALDEMAR favor CHEMA 2 PFSH Medical History No known health problems Surgical History S/P laparoscopic cholecystectomy History of tonsillectomy Family History Maternal Grandmother Diabetes Colon cancer Social History Household Members: Family Housing: House Do you presently have visiting nurse or other home services: No Alcohol intake: current Alcohol intake frequency: holidays/special occasions only Comment: nausea much less Patient Tobacco Use Status: Former Tobacco user Tobacco use type: Cigarette Cigarettes Per Day: 2 Years Smoked: 3 e-Cigarette/Vaping Use: Currently Using Substance Use Type: Marijuana service: No 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 Sexually active: Yes Sexual orientation: Straight/Heterosexual Gender identity: Female Review of Systems Const All systems reviewed & are unremarkable except as noted in HPI and below Physical Exam Vital Signs: Last Vital Signs BP 120/80 09/01/24 10:03 BMI result Body Mass Index 38.7 General: Yes no CVA tenderness External Female Exam: normal external appearance and normal appearance of the urethra Speculum Exam - Vagina: normal appearance of the vagina, normal palpation, no lesions and no masses Speculum Exam - Cervix: normal appearance of the cervix, normal palpation, no lesions, no masses and nontender Bimanual exam- vagina & uterus: normal bimanual exam, normal palpation, uterine size normal, normal palpation, uterine shape normal, No Cervical tenderness present and non-tender Bimanual Exam- Adnexa, other: normal adnexae Back/Spine/Pelvis Back: no CVA tenderness Office Procedures Colposcopy Colposcopy: Urine test done in the office was negative Pre-Procedure Counseling: Before beginning the procedure, I conducted comprehensive counseling with the patient. We thoroughly discussed the procedure itself, including its details, alternatives, and all associated risks. This included but not limited to the following complications such as bleeding, infection, and injury to the vagina, bladder, and vessels, as well as the potential need for transfusion with all its associated risks. Subsequently, the patient sign the consent. Pap smear result: HGSIL. Procedure: During the procedure, the following steps were performed: A speculum was inserted, and acetic acid was applied. Colposcopy was conducted, allowing visualization of the transformation zone. Acetowhite lesions were identified at the 4+6+7+9+11+12+3 o'clock position. Cervical biopsies were obtained from the 4+6+7+9+11+12+3 o'clock position, followed by an endocervical curettage (ECC). Vaginoscopy of the upper vagina revealed no evidence of aceto-white lesions. Hemostasis was achieved using Monsel solution, and the patient tolerated the procedure well. Post-Procedure Instructions: The patient was advised to promptly contact the office or the after hours answering service or go to the emergency room if experiencing a temperature exceeding 100.4?F, abdominal pain, nausea/vomiting, or bleeding. Additionally, the patient was instructed to abstain from vaginal intercourse and bathtub use. The patient confirmed understanding of these instructions. Discharge Instructions: The patient was instructed to schedule a follow-up appointment in 2 weeks for further evaluation and management. Please note that this note was generated using a voice recognition program, and errors may have occurred during air force senior officer. [id number]-[id number] of cervix including upper vagina with biopsy and ECC Procedure code (CPT) selection complete Results AMB Test Urine AMB Test Urine Negative Last Edit by Jammie Briscoe CMA on 09/01/24 10:17 Results Reviewed Results Reviewed: Laboratory Last Values Tst Clinic Negative 09/01/24 10:16 Assessment & Plan Assessment & Plan (1) HGSIL (high grade squamous intraepithelial lesion) on Pap smear of cervix: Code(s): R87.613 - High grade squamous intraepithelial lesion on cytologic smear of cervix (HGSIL) Category: Medical Plan: Discussed with the patient the result of her abnormal pap, its significance, risk of progression, persistence, and regression. the false positive/negative rate of a Pap smear as a screening test in detecting cervical cancer and the indication for a diagnostic test -colposcopy, biopsy, endocervical curettage. The patient verbalized understanding and agreed with the plan, all questions answered. Colpo biopsy ECC done, see procedure note Orders: Orders AMB Colposcopy Today R87.613 - High grade squamous intraepithelial lesion on cytologic smear of cervix (HGSIL) AMB HCG Urine Test Today Z32.02 - Encounter for test, result negative Coding Level of Care Code Procedure Only Diagnoses HGSIL (high grade squamous intraepithelial lesion) on Pap smear of cervix R87.613 CPT Codes Colposcopy - CPT: 42510-Aepvbwktu of cervix including upper vagina with biopsy and ECC ([id number])
--- OUTSIDE RECORDS SUMMARY | 2024-09-01 10:56 | XMS_ITS | Encounter Summary ---
Author Organization [employer] Address [address] [place] [address] Care Team Providers Care Digital Media Intern Name Role Phone Flaco Lisa DAWKINS Primary Care Provider [phone] Reason for Visit * Reason Comments Filling Encounter Details Date Type Department Care Team ([facility] st Contact Info) Description 08/16/2024 10:00 AM EDT Office Visit [facility] ADULT DENTAL [address] [place] [address] Dimitry Wolf DDS [address] [place] [address] Social History Tobacco Use Types Packs/Day Years Used Date Smoking Tobacco: Never Smokeless Tobacco: Former Tobacco Cessation:Counseling Given: Not Answered Alcohol Use Standard Drinks/Week [...] Sign Reading Time Taken Comments Blood Pressure 126/78 08/16/2024 10:05 AM EDT Pulse 60 08/16/2024 10:05 AM EDT Temperature - - Respiratory Rate - - Oxygen Saturation - - Inhaled Oxygen Concentration - - Weight - - Height - - Body Mass Index - - documented in this encounter Progress Notes * Dimitry Wolf DDS - 08/16/2024 10:00 AM EDT Patient ID: Jaimee Marshall is a 23 y.o. female. Time Out: No data recorded Location: [facility] Tooth: #2 and #31 Procedure: Taoist Verified the above with patient, rehabilitation assistant, and provider. Confirmed via patient's chart, intraorally and by radiographs. Medical Lab Tech Instructor: not applicable Chief Complaint Patient presents with Filling Medical Hx: Vitals: Blood pressure 126/78, pulse 60, last menstrual period 07/01/2024. Medications, Med Hx reviewed with patient and updated in chart. Consent Obtained: The risks, benefits, indications, potential complications, and alternatives were explained to the patient and informed consent was obtained with good understanding. Treatment Provided: Dental procedures in this visit D2392 - RESIN-BASED COMPOSITE - 2 SURF, POSTERIOR 2 LO (Completed) Service provider: Dimitry Wolf DDS Billing provider: Dimitry Wolf DDS D2392 - RESIN-BASED COMPOSITE - 2 SURF, POSTERIOR 31 PETER (Completed) Service provider: Dimitry Wolf DDS Billing provider: Dimitry Wolf DDS Diagnosis: Reversible pulpitis Topical: 20% Benzocaine Anesthesia: 2% Lidocaine (Xylocaine) w/ 1:100,000 epinephrine Number of Cartridges: 2 Injection Type: Buccal infiltration, Palatal infiltration, Inferior alveolar nerve block, and Long buccal nerve block Confirmed profound anesthesia. Isolation: high speed suction and cotton rolls Prep: All caries removed and Preparation finalized Matrix: None Etch: 37% Phosphoric Acid Etch Desensitizer: Gluma Liner/Base: None Quintero: I-Quintero Taoist Material: Paradigm Composite Shade: A2 Polished. Occlusion & contacts verified. Patient satisfied with comfort and esthetics. Patient tolerated procedure well. Post-operative instructions were given. Patient departed alert, oriented, and in stable condition. Tooth #3 revealed chipped MB cusp. Oral hygiene instructions reinforced. Informed the patient aboutthe chipped tooth. Patient is not experiencing any discomfort. Tooth #3 needs to be monitored in the follow-up visits. NV: Slasher Tender: Maria Esther Garcia Dentist: Dimitry Wolf DDS documented in this encounter Plan of Treatment Upcoming Encounters Date Type Department Care Team (Late st Contact Info) Description 12/09/2024 9:45 AM EDT Office Visit [facility] MEDICINE [address] [place] [address] Naresh Mario MD [address] [place] [address] 01/05/2025 8:00 AM EDT Office Visit [facility] ADULT DENTAL [address] [place] [address] Rosaura Corral documented as of this encounter Procedures Procedure Name Priority Date/Time Associated Diagnosis Comments 31 PETER RESIN-BASED COMPOSITE - 2 SURF, POSTERIOR Routine 08/16/2024 10:00 AM EDT 2 LO RESIN-BASED COMPOSITE - 2 SURF, POSTERIOR Routine 08/16/2024 10:00 AM EDT documented in this encounter Visit Diagnoses Not on filedocumented in this encounter Additional Health Concerns Assessment Noted Time PHQ-9 Depression Total Score: 0 06/24/19 24 10:01 AM EST documented as of this encounter Care Teams Digital Media Intern Relationship Specialty Start Date End Date Lisa Sam ANP [address] [place] [address] PCP - General Family Medicine 06/14/19 documented as of this encounter
--- OUTSIDE RECORDS SUMMARY | 2024-09-01 10:56 | XMS_ITS | Clinical Summary ---
Author Organization [facility] ity Address [address] [place] [address] Care Team Providers Care Shrink Pit Operator Name Role Phone Unavailable Primary Care Provider [...] - 2023-2 5 season) 2023 Influenza Vaccine (Season Ended) 2024 HIB Vaccines Aged Out No longer eligi [...] age to complete this topic Meningococcal B Vaccine Aged Out No l onger eligible based on patient's age to complete [...]
--- OUTSIDE RECORDS SUMMARY | 2024-09-01 10:57 | XMS_ITS | Encounter Summary ---
Author Organization [employer] Address [address] [place] [address] Care Team Providers Care Thermometer Maker Name Role Phone Lisa Sam Primary Care Provider [phone] Encounter Details Date Type Department Care Team (Latest Contact Info) Description 05/20/2021 Abstract [facility] CONVERSIONS Dental, Provider, DDS Social History Tobacco [...] Upcoming Encounters Date Type Department Care Team ( st Contact Info) Description 12/09/2024 9:45 AM EDT Office Visit [facility] MEDICINE [address] [place] [address] Naresh Mario MD [address] [place] [address] 01/05/2025 8:00 AM EDT Office Visit [facility] ADULT DENTAL [address] [place] [address] Rosaura Corral documented as of this encounter Visit Diagnoses Not on filedocumented in this encounter Care Teams Thermometer Maker Relationship Specialty Start Date End Date Lisa Sam ANP [address] [place] [address] PCP - General Family Medicine 06/14/19 documented as of this encounter
--- OUTSIDE RECORDS SUMMARY | 2024-09-01 10:57 | XMS_ITS | Clinical Summary ---
Author Organization [employer] Address [address] [facility] [address] [place] [address] Care Team Providers Care Mud Analysis Well Logging Operator Name Role Phone Gilmore Josselyn DAWKINS Primary Care Provider [phone] Allergies No known active allergies Medications nicotine (Nicoderm CQ) 14 MG/24HR patchIndicatio ns:Tobacco use Place 1 patch on the skin 1 (one) time each day at the same time. 30 patch 06/24/19 24 Active chlorhexidine (Peridex) 0.12 % solution Use 15ml twice daily to rinse the mouth. Spit, do not swallow. 473 mL 06/07/19 25 Active Vit-Fe Fumarate-FA ( Plus) 27-1 MG tablet One tablet by mouth daily 30 tablet 11 07/20/19 25 Active ibuprofen 400 MG tablet Take 1 tablet (400 mg) by mouth every 6 (six) hours if needed for moderate pain or fever for up to 30 doses. 30 tablet 08/23/19 25 Active tiZANidine (Zanaflex) 2 MG tablet Take 1 tablet (2 mg) by mouth every 6 (six) hours if needed for muscle spasms for up to 10 days. 30 tablet 08/23/19 25 Active lidocaine (Lidoderm) 5 % patch Apply 1 patch topically Once per day. Remove & discard patch within 12 hours or as directed by MD. May use 2 patches at once. 60 patch 2 08/23/19 25 026 Active acetaminophen (Tylenol) 500 MG tablet Take 2 tablets (1,000 mg) by mouth every 6 (six) hours if needed for moderate pain or fever. 30 tablet 08/23/19 25 Active acetaminophen (Tylenol) 500 MG tablet Take 2 tablets (1,000 mg) by mouth every 6 (six) hours if needed for moderate pain or fever. 30 tablet 07/01/19 24 025 Discontinued(Re order (will not trigger notification to Pharmacy)) Hospital, Clinic, or Other Facility Administered Medication Ordered Dose Route Frequency Start Date End Date Status ketorolac (Toradol) injection 30 mgIndications:Acute left-sided low back pain without sciatica,Acute left-sided thoracic back pain 30 mg IM Once 08/22/2024 08/22/2024 Ended Active Problems Problem Noted Date Diagnosed Date Obesity (BMI 35.0-39.9 without comorbidity) 04/28 History of cholecystectomy 07/09/2023 Assessment & Plan (07/09/2023 6:36 AM EDT): S/p laparoscopic cholecystectomy on 07/03/2023 w no complications . Resolved RUQ pain but w expected pain after surgery and constipation in part from opioids and surgery -I called her surgeon -Dr Layne at [phone]- not able to help w scheduling apt [...] Cholelithiasis 04/22/2023 Overview (04/22/2023): Referred to Dr. layne from [facility] 04/21/23 Assessment & Plan (06/24/2023 5:02 PM EST): Plan for surgery, see assessment below Inguinal lymphadenitis 06/13/2022 Encounters Date Type Department Care Team Description 08/22/2024 9:40 AM EDT Office Visit [facility] [address] [place] [phone] Daniel Blackmon MD Acute left-sided low back pain without sciatica (Primary Dx); Acute left-sided thoracic back pain 08/16/2024 10:00 AM EDT Office Visit [facility] ADULT DENTAL [address] [place] [phone] Dimitry Wolf, DDS 07/27/2024 9:00 AM EDT Office Visit [facility] MEDICINE [address] [place] [phone] Ana Luisa Scruggs CNM Vulvar abscess (Primary Dx); HSIL (high grade squamous intraepithelial lesion) on Pap smear of cervix; Hidradenitis suppurativa 07/27/2024 Travel 07/26/2024 Orders Only [address] [address] Ana Luisa Scruggs CNM HSIL (high grade squamous intraepithelial lesion) on Pap smear of cervix (Primary Dx) 07/19/2024 9:00 AM EDT Procedure Visit [address] [address] Ana Luisa Scruggs CNM Cervical cancer screening (Primary Dx); Dysmenorrhea; Procreative management; Screening examination for venereal disease; Vulvar abscess 07/19/2024 Travel 07/11/[address] [address] Ana Luisa Scruggs CNM 07/04/2024 8:00 AM EDT Office Visit [facility] ADULT D[facility]AL [address] [place] [address] Rosaura Corral Impacted tooth (Primary Dx); Dental calculus; Dental plaque 06/07/2024 9:00 AM EST Office Visit [facility] ADULT D[facility] [address] [place] [address] Dimitry Wolf DDS from Last 3 Months [...] Sign Reading Time Taken Comments Blood Pressure 140/82 08/22/2024 9:27 AM EDT Pulse 84 08/22/2024 9:27 AM EDT Temperature 36.6 ??C (97.9 ??F) 08/22/2024 9:27 AM ED T Respiratory Rate 17 08/22/2024 9:27 AM EDT Oxygen Saturation 98% 08/22/2024 9:27 AM EDT Inhaled Oxygen Concentration - - Weight 106 kg (234 lb 9.6 oz) 08/22/2024 9:27 AM EDT Height 167.6 cm (5' 6 ) 07/27/2024 9:06 AM EDT Body Mass Index 37.87 07/27/2024 9:06 AM EDT Plan of Treatment Upcoming Encounters Date Type Department Care Team (Late st Contact Info) Description 12/09/2024 9:45 AM EDT Office Visit [facility] MEDICINE [address] [place] [address] Naresh Mario MD [address] [place], [place] [phone] 01/05/2025 8:00 AM EDT Office Visit [facility] ADULT DENTAL [address] [place] [address] Rosaura Corral Health Maintenance Due Date Last Done Comments COVID-19 Vaccine ( - season) 2023 Influenza Vaccine (#1) 2023 07/09/2021, 2018 Depression Screening 06/24/2024 06/24/2023, 06/24/19 SDOH Screening 06/24/2024 06/24/2023 Colposcopy 07/20/2024 Dental Oral Exam 01/05/2025 07/04/2024 Dental Prophylaxis 01/05/2025 07/04/2024, 05/20/2021 Alcohol/Substance Use Screening 05/13/2025 05/13/2024 Dental X-Ray: Bitewings 07/05/2025 07/05/19, 05/20/2021, 03/16/2019 Family Planning (PISQ) 07/27/2025 07/27/2024 Tobacco Screening 08/22/2025 08/22/2024 Dental X-Ray: Full Mouth 07/06/2027 025, 05/10/2024, 05/20/2021 Pap Smear 07/20/2027 07/19/2024, 0306/2021, 06/27/2021 Lipid Panel 05/13/2029 05/13/2024 DTaP/Tdap/Td Vaccines (8 - Td or Tdap) 06/30/2033 07/01/2023, 10/23/2011, 01/10/2004, Additional history exists Zoster Vaccines (1 of 2) 12/17/2049 RSV Patients and Patients Aged 60 years or older (1 - 1-dose 75+ series) 12/17/2074 HIB Vaccines Completed 07/29/2001, 05/29, 04/21/2000, Additional history exists IPV Vaccines Completed 01/10/2004, 0 07/2001, 06/23/2000, Additional history exists Hepatitis A Vaccines Completed 10/23/2011, 09/19/19 11 Meningococcal Vaccine Aged Out 10/23/2011 No zac kenan eligible based on patient's age to complete this topic Hepatitis B Vaccines Completed 07/09/2021, 04/16/2021, 03/19/2021, Additional history exists HIV Screening Completed 05/13/2024, 08/27, 06/26/2020, Additional history exists Hepatitis C Screening Completed 05/13/2024 , 09/23/2022, 06/26/2020, Additional history exists HPV Vaccines Completed 07/27/2024, 09/2023, 06/28/2020, Additional history exists Pneumococcal Vaccine: Pediatrics (0 to 5 Years) and At-Risk Patients (6 to 49) Years) Aged Out No longer eligible based on patient's age to complete this topic RSV under 20 months Aged Out No [...] SURF, POSTERIOR Routine 08/16/2024 10:00 AM EDT US PELVIS TRANSVAGINAL Urgent 5 8:20 AM EDT Dysmenorrhea PROLACTIN Routine 07/19/2024 9:35 AM EDT Procreative management TSH W/REFLEX TO FT4 Routine 07/19/2024 9 :35 AM EDT Procreative management CHLAMYDIA/N. GONORRHOEAE AND T. VAGINALIS RNA, QUAL,TMA Routine 07/19/2024 9:30 AM EDT Screening examination for venereal disease PAP SMEAR Routine 07/19/2024 9:30 AM EDT Cervical cancer screening ORAL HYGIENE INSTRUCTIONS Routine 07/04/2024 8:00 AM [...] SURF, POSTERIOR Routine 06/07/2024 9:00 AM EST HEPATITIS C AB W/REFL TO HCV RNA, QN, PCR Routine 05/13/2024 11:02 AM EST Obesity (BMI 35.0-39.9 without comorbidity) HIV 1/2 ANTIGEN/ANTIBODY, FOURTH GENERATION W/RFL Routine 05/13/2024 11:02 AM EST Obesity (BMI 35.0-39.9 without comorbidity) LIPID PANEL, STANDARD Routine 05/13/2024 11:02 AM EST Obesity (BMI 35.0-39.9 without comorbidity) from Last 3 Months or Most Recently Relevant to Health Maintenance Results * US Pelvis Transvaginal (07/22/2024 8:20 AM EDT) Anatomical Region Laterality Modality Pelvis Ultrasound 07/22/2024 8:20 AM EDT Narrative 07/22/2024 10:09 AM EDT ? [facility] ?[address] ?[place] [address] ? Ultrasound Report ? Signed ? Patient: Gorbea Marshall,Jaimee ?MR#: [id number] ?? [id number] ? : 2000 ?Acct:[id number] ? Age/Sex: 23 / F ?ADM Date: 03/28/25 ? Loc: HO.US ? Attending Dr: Ana Luisa Scruggs CNM ? Ordering Physician: ANA LUISA SCRUGGS CNM ?? Date of Service: 07/22/24 ?? Procedure(s): US pelvic and transvaginal ?? Accession Number(s): [id number] ? cc: ANA LUISA SCRUGGS CNM; JOSSELYN GILMORE NP ? EXAMINATION: ??US PELVIS TRANSABDOMINAL AND TRANSVAGINAL ? HISTORY: dysmenorrhea ? COMPARISON: Comparison is made with the prior examination dated ?? 07/15/2023. ? TECHNIQUE: ? Transabdominal and endovaginal real-time 2D adler-scale ultrasound was ?? performed. ? FINDINGS: ? Uterus: ??The uterus is normal in size, measuring 7.9 x 3.1 x 4.2 cm. ? Myometrium has a normal echotexture. ??No fibroids are identified. ? Endometrium: ??The endometrial stripe measures 8 mm in thickness. There ?? is a small amount of fluid in the endometrial cavity. There are ?? nabothian cysts in the cervix which demonstrate calcifications. ? Right ovary: ??The right ovary measures 4.2 x 2.4 x 2.6 cm. ??The right ?? ovary is normal in size and echotexture. There is a 1.2 cm hypoechoic ?? area which likely represents a corpus luteum. ? Left ovary: ?? The left ovary measures 2.6 x 1.7 x 1.4 cm. ??The left ?? ovary is normal in size and echotexture. ? Pelvic fluid: none. ? US/US pelvic and transvaginal ?? IMPRESSION: ?? Small amount of fluid in the endometrial canal. Nabothian cysts in the ?? cervix. Otherwise unremarkable pelvic ultrasound. ? Electronically signed by: ??Ilia Tang MD ??07/22/2024 10:06 AM EDT ?? RP ? Dictated By: ?Ilia Tang MD ? Signed By: ?<Electronically signed by Ilia Tang MD in OV> ?07/22/24 1006 ? DD/ 0820 ? TD/TT: 07/22/24 0840 ? Slip Maker: ? Procedure Note Cierra, Image - 07/22/[address] [address] Ultrasound Report Signed Patient: Taras Rdz#: [id number] : 2000Acct:[id number] Age/Sex: 23 / FADM Date: 07/22/24 Loc: HO.US Attending Dr: Ana Luisa Scruggs CNM Ordering Physician: ANA LUISA SCRUGGS CNM Date of Service: 07/22/24 Procedure(s): US pelvic and transvaginal Accession Number(s): [id number] cc: ANA LUISA SCRUGGS CNM; JOSSELYN GILMORE NP EXAMINATION: US PELVIS TRANSABDOMINAL AND TRANSVAGINAL HISTORY: dysmenorrhea COMPARISON: Comparison is made with the prior examination dated 07/15/2023. TECHNIQUE: Transabdominal and endovaginal real-time 2D adler-scale ultrasound was performed. FINDINGS: Uterus: The uterus is normal in size, measuring 7.9 x 3.1 x 4.2 cm. Myometrium has a normal echotexture. No fibroids are identified. Endometrium: The endometrial stripe measures 8 mm in thickness. There is a small amount of fluid in the endometrial cavity. There are nabothian cysts in the cervix which demonstrate calcifications. Right ovary: The right ovary measures 4.2 x 2.4 x 2.6 cm. The right ovary is normal in size and echotexture. There is a 1.2 cm hypoechoic area which likely represents a corpus luteum. Left ovary: The left ovary measures 2.6 x 1.7 x 1.4 cm. The left ovary is normal in size and echotexture. Pelvic fluid: none. US/US pelvic and transvaginal IMPRESSION: Small amount of fluid in the endometrial canal. Nabothian cysts in the cervix. Otherwise unremarkable pelvic ultrasound. Electronically signed by: Ilia Tang MD 07/22/2024 10:06 AM EDT Dictated By: Ilia Tang MD Signed By: <Electronically signed by Ilia Tang MD in OV> 07/22/24 1006 DD/ 0820 TD/TT: 07/22/24 0840 Slip Maker: Ana Luisa Scruggs CNM IMG US PROCEDURES Final R esult * TSH W/Reflex to FT4 (07/19/2024 9:35 AM EDT) Pathologist [facility] TSH reflex Free T4 1.16 0.32 - 4.0 uIU/mL [facility] Blood Venous blood specimen / Unknown 07/19/2024 9:35 AM EDT 07/19/2024 11:23 AM EDT [facility] LAB BLOOD ORDERABLES Laxmi l Result Performing Organization Address [facility]/ZIP Co de Phone Number [facility] [address] [place] [phone] * Prolactin (07/19/2024 9:35 AM EDT) Pathologist [facility] Prolactin 9.1 ng/mL [facility] Comment:Reference Range Fema les Non- 3.0-30.0 10.0-209.0 Postmenopausal 2.0-20.0THIS TEST WAS PERFORMED AT:[facility] [place] [phone] CARBONE MD Blood Venous blood specimen / Unknown 07/19/2024 9:35 AM EDT 07/19/2024 11:23 AM EDT [facility] BLOOD ORDERABLES Laxmi l Result Performing Organization Address [facility]/ZIP Co de Phone Number [facility] [address] [place] [phone] * STI testing add on (NG, CT, Trich) (07/19/2024 9:30 AM EDT) Pathologist [facility] Trichomonas (NAAT) NOT DETECTED [facility] Comment:REFERENCE RANGE: NOT DETECTEDThe analytical performance characteristics of thisassay, when used to test SurePath(TM) specimens have beendetermined by [employer]. The modifications havenot been cleared or approved by the FDA. This assay hasbeen validated pursuant to the CLIA regulations and isused for clinical purposes.For additional information, please refer tohttps://[employer]/faq/YYR212(This link is being provided for information/educational purposes only.)For additional information, please refer tohttp://[employer]/faq/Trichomonastma(This link is being provided for informational/educational purposes only.)THIS TEST PERFORMED AT:[facility] [address] [phone] DIRECTOR: ROBERTO CARBONE MD CTNG Ref Lab NOT DETECTED NOT DETECTED [facility] NG Ref Lab NOT DETECTED NOT DETECTED [facility] ThinPrep?? vial Cervix uteri structure / Unknown 07/19/2024 9:30 AM EDT 07/20/2024 7:30 AM EDT [facility] - 07/27/2024 2:28 PM EDT Collection Date: [id number] by: JORDI Serrano: Cervix Ana Luisa Scruggs [facility] CYTOLOGY ORDERABLES F inal Result [facility] [address] [place] [phone] * Pap Smear (07/19/2024 9:30 AM EDT) Swab Cervix uteri structure / Unknown 07/19/2024 9:30 AM EDT 07/20/2024 7:30 AM EDT [facility] - 07/25/2024 3:18 PM EDT ----- ------- Name: Clemente MarshallJohna ? Age/Sex: 23/F ? : 2000 Unit#: [id number] ?? Attend Dr: ANA LUISA SCRUGGS CNM ?Re07/19/24 ?Status: DEP REF ? Location: HO.LNP ?Disch: ? ----- ------- SPEC : [id number] ? RECD: 07/20/24 ? STATUS: ??SOUT ? REQ NUM: [id number] ? NIYA: 07/19/24 ? SUBM DR: ANA LUISA SCRUGGS CNM ? ENTERED: ??07/20/24 ?SP TYPE: Pap Smr ?OTHR : ? ORDERED: ??Pap Smear, PAP path review ? Interpretation ?? General Category: ?? Epithelial cell abnormality. ?? Adequacy: ? Endocervical component present. ?? Interpretation: ?High grade squamous intraepithelial lesion (favor CHEMA II). ?Coccobacilli consistent with shift in vaginal evelyne. ?Abundant acute inflammation. ?Clinical Information LMP:Unknown date Previous PAP test:2021 ? Material Received ?? ThinPrep-Cervical ----- ------- Signed (signature on file) Catina Guardado 07/25/24 1518 ? ----- ------- ? END OF REPORT ? us Ana Luisa Scruggs [facility] CYTOLOGY ORDERABLES F inal Result [facility] [address] [place] [phone] * Hepatitis C Antibody with Reflex to HCV, RNA, Quantitative, Real-Time PCR (05/13/2024 11:02 AM EST) Hepatitis C Antibody Nonreactive Nonreactive [facility] Comment:Antibodies to HCV no t detected; does not exclude early acuteHCV infection. Blood Venous blood specimen / Unknown 05/13/2024 11:02 AM EST 05/13/2024 2:12 PM EST us Baldev Dowling MD LAB BLOOD ORDERABL ES Final Result [facility] [address] [place] [phone] * HIV-1/2 Antigen and Antibodies, Fourth Generation, with Reflexes (05/13/2024 11:02 AM EST) Pathologist [facility] HIV AB/AG Nonreactive Nonreactive [facility] Comment:HIV-1 p24 Ag and/or HIV-1/HIV-2 Ab not detected.A test result that is nonreactive does not exclude thepossibility of exposure to or infection with HIV-1 and/orHIV-2. Nonreactive results in this assay for individualswith prior exposure to HIV-1 and/or HIV-2 may be due toantigen and antibody levels that are below the limit ofdetection of this assay.The [employer] HIV Ag/Ab Combo assay result andsupplemental assay results should be interpreted inconjunction with the patient's clinical presentation,history and other laboratory results. If the results areinconsistent with clinical evidence, additional testing issuggested to confirm the result. Blood Venous blood specimen / Unknown 05/13/2024 11:02 AM EST 05/13/2024 2:12 PM EST us Baldev Dowling MD LAB BLOOD ORDERABL ES Final Result Performing Organization Address [facility]/State/ZIP Co de Phone Number [facility] [address] [place] [phone] * Lipid Panel, Standard (05/13/2024 11:02 AM EST) Triglycerides 46 <150 mg/dL [facility] Comment:Desirable Triglyceri de: less than 150 mg/dLBorderline High Triglyceride 150-199 mg/dLHigh Triglyceride: 200-499 mg/dLVery High Triglyceride: greater than or equal to 5OO mg/dL Cholesterol 131 <200 mg/dL [facility] Comment:Desirable Cholestero l: less than 200 mg/dLBorderline High Cholesterol: 200-239 mg/dLHigh Cholesterol: greater than 239 mg/dL LDL Cholesterol Calculated 69 <100 mg/dL [facility] Comment:Desirable LDL: less than 100 mg/dLNear Optimal/Above Optimal LDL: 110- 129 mg/dLBorderline High LDL: 130-159 mg/dLHigh LDL: 160-189 mg/dLVery High LDL: greater than or equal to 190 mg/dL HDL Cholesterol 53 >40 mg/dL [facility] Comment:Desirable HDL: great er than 40 mg/dL Note: This HDL assay may give artificially low results in patients with liver disease. Blood Venous blood specimen / Unknown 05/13/2024 11:02 AM EST 05/13/2024 2:12 PM EST Baldev Dowling MD LAB BLOOD ORDERABL ES Final Result [facility] [address] [place] [phone] from Last 3 Months or Most Recently Relevant to Health Maintenance Insurance [facility] - HSN FULL (MEDICAID) Care Teams Mud Analysis Well Logging Operator Relationship Specialty Start Date End Date Josselyn Gilmore ANP [address] [place] [phone] PCP - General Family Medicine 06/14/19
== END 2024-09-01 10:56 | disposition home or self-care (01) ==
LOC: HO.HWS 09:57
PROVIDERS: PCP Nurse Practitioner Primary Care; Visit Provider Obstetrics & Gynecology
DX: R87.613 High grade squamous intraepithelial lesion on cytologic smear of cervix (HGSIL) (principal); Z32.02 Encounter for pregnancy test, result negative
CPT/HCPCS: 57454

== ENCOUNTER 2024-09-07 08:43 | Outpatient (REF) | payer OTHER, SELFPAY | END 2024-09-07 08:44 | disposition home or self-care (01) | LOC: HO.LNP 08:43 | PROVIDERS: PCP Nurse Practitioner Primary Care; Visit Provider Obstetrics & Gynecology | DX: D60.9 Acquired pure red cell aplasia, unspecified (principal) | CPT/HCPCS: 88305 ==

== ENCOUNTER 2024-09-07 08:43 | Outpatient (AMB) | payer OTHER, SELFPAY ==
--- NOTE | 2024-09-07 08:56 | MHC.OFFVIS ---
Vital Signs 09/07/24 08:58 Height 5 ft 6 in Weight 240 lb BMI 38.7 BP 120/74 Intake Visit Reasons: Colpo results/ pre op Certified Registered Nurse Anesthetist Required: No Information Interpreted: non-clinical & clinical Computer Assistant: Computer Assistant Present Accompanied by: Self / Same As Patient Allergies No Known Allergies Allergy (Verified 09/07/24 09:06) Is last menstrual period known: Yes Last menstrual period: 08/31/24 Post menopausal: No Patient : No Do you need a note to return to daycare/school/sports/work: Yes (for surgery on thursday) HPI Comments Details: Presenting post colpo for follow-up. The patient is doing well with no complaints. The pathology showed the following: A. Endocervix, curettage: Abundant blood with rare endocervical glandular epithelial cells; insufficient for endocervical evaluation. B. Cervix, 3:00, biopsy: Squamous and endocervical glandular mucosa with inflammation and reactive changes; negative for dysplasia. C. Cervix, 4:00, biopsy: Squamous mucosa; negative for dysplasia; no endocervical glandular component present. D. Cervix, 6:00, biopsy: Squamous and endocervical glandular mucosa with inflammation and reactive changes; negative for dysplasia. E. Cervix, 7:00, biopsy: Squamous and endocervical glandular mucosa with inflammation and reactive changes; negative for dysplasia. F. Cervix, 9:00, biopsy: High-grade squamous intraepithelial lesion (severe dysplasia, CHEMA III), involving endocervical glands. G. Cervix, 11:00, biopsy: High-grade squamous intraepithelial lesion (severe dysplasia, CHEMA III), involving endocervical glands. H. Cervix, 12:00, biopsy: Squamous and endocervical glandular mucosa with focal atypical squamous metaplastic cells (not present on deeper levels). Comment: The high-grade dysplastic cells seen in the patient's previous Pap test ([id number]) concur with the current biopsy [facility] Medical History No known health problems Surgical History S/P laparoscopic cholecystectomy History of tonsillectomy Family History Maternal Grandmother Diabetes Colon cancer Social History Household Members: Family Housing: House Do you presently have visiting nurse or other home services: No Alcohol intake: current Alcohol intake frequency: holidays/special occasions only Comment: nausea much less Patient Tobacco Use Status: Former Tobacco user Tobacco use type: Cigarette Cigarettes Per Day: 2 Years Smoked: 3 e-Cigarette/Vaping Use: Currently Using Substance Use Type: Marijuana service: No 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 Sexual orientation: Straight/Heterosexual Gender identity: Female Female Reproductive History Menstrual Date of last menstrual period: 08/31/24 Total pregnancies: 2 Full term: 2 Review of Systems Card Reports as per HPI and Reports no additional complaints Resp Reports as per HPI and Reports no additional complaints GI Reports as per HPI and Reports no additional complaints Reports as per HPI Physical Exam Vital Signs: Last Vital Signs BP 120/74 09/07/24 08:58 BMI result Body Mass Index 38.7 Assessment & Plan Assessment & Plan (1) 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 Discussed with the patient the pathology results of the colposcopy biopsies & endocervical curettage ( severe dysplasia-CHEMA 3 with insufficient ECC). Recommended repeat ECC Before beginning the procedure, I conducted comprehensive counseling with the patient. We thoroughly discussed the procedure itself, including its details, alternatives, and all associated risks. This included but not limited to the following complications such as bleeding, infection, and injury to the vagina, bladder, and vessels, as well as the potential need for transfusion with all its associated risks. Subsequently, the patient sign the consent. Endocervical curettage (ECC) done Hemostasis was achieved using Monsel solution, and the patient tolerated the procedure well. The patient was advised to promptly contact the office or the after hours answering service or go to the emergency room if experiencing a temperature exceeding 100.4?F, abdominal pain, nausea/vomiting, or bleeding. Additionally, the patient was instructed to abstain from vaginal intercourse and bathtub use. The patient confirmed understanding of these instructions. Discharge Instructions: The patient was instructed to schedule a follow-up appointment in 1 week for further evaluation and management. Please note that this note was generated using a voice recognition program, and errors may have occurred during computer tech. Coding Level of Care Code Est Pt Level 3 (07078) Diagnoses 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 D06.9
[2024-09-07 08:58] VITALS: BP 120/74; BMI 38.7
--- OUTSIDE RECORDS SUMMARY | 2024-09-07 09:01 | XMS_ITS | Encounter Summary ---
Author Organization [employer] Address [address] [facility] [address] [place] [address] Care Team Providers Care Education Program Associate Name Role Phone Lisa Sam Primary Care Provider [phone] Encounter Details Date Type Department Care Team ([facility] st Contact Info) Description 09/06/2024 Orders Only [facility] [address] [place] [address] Provider, MD Kenyatta Social History Tobacco Use Types Packs/Day Years Used Date Smoking Tobacco: Never Smokeless Tobacco: Former Alcohol Use Standard Drinks/Week Comments Not Currently [...] as of this encounter Miscellaneous Notes * Result Encounter Note - Gwendolyn Da Silva CNM - 09/06/2024 8:22 AM EDT Thanks - will likely need LEEP or Cone, but will await followup appt with Dr Alexander for plan. documented in this encounter Plan of Treatment Upcoming Encounters Date Type Department Care Team (Late st Contact Info) Description 12/09/2024 9:45 AM EDT Office Visit [facility] [address] [place] [phone] Naresh Mario MD [address] [place] [address] 01/05/2025 8:00 AM EDT Office Visit [facility] [address] [place] [address] Rosaura Corral documented as of this encounter Procedures Procedure Name Priority Date/Time Associated Diagnosis Comments COLPOSCOPY Routine 09/01/2024 8:22 AM EDT documented in this encounter Results * Colposcopy (09/01/2024 8:22 AM EDT) us Historical Provider IN CLINIC/BEDSIDE ORDERAB LES Final Result documented in this encounter Visit Diagnoses Not on filedocumented in this encounter Additional Health Concerns Assessment Noted Time PHQ-9 Depression Total Score: 0 06/24/19 24 10:01 AM EST documented as of this encounter Care Teams Education Program Associate Relationship Specialty Start Date End Date Lisa Sam ANP [address] [place] [address] PCP - General Family Medicine 06/14/19 documented as of this encounter
--- OUTSIDE RECORDS SUMMARY | 2024-09-07 09:01 | XMS_ITS | Encounter Summary ---
Author Organization [employer] Address [address] [facility] [address] [place] [address] Care Team Providers Care Information Systems Administrator Name Role Phone Lisa Sam Primary Care Provider [phone] Encounter Details Date Type Department Care Team (Latest Contact Info) Description 05/20/2021 Abstract [facility] CONVERSIONS Dental, Provider, DDS Social History [...] Description 12/09/2024 9:45 AM EDT Office Visit [facility] [address] [place] [address] Naresh Mario MD [address] [place] [address] 01/05/2025 8:00 AM EDT Office Visit [facility] [address] [place] [address] Rosaura Corral documented as of this encounter Visit Diagnoses Not on filedocumented in this encounter Care Teams Information Systems Administrator Relationship Specialty Start Date End Date Lisa Sam ANP [address] [place] [address] PCP - General Family Medicine 06/14/19 documented as of this encounter
--- OUTSIDE RECORDS SUMMARY | 2024-09-07 09:01 | XMS_ITS | Clinical Summary ---
Author Organization [employer] Address [address] [place] [address] Care Team Providers Care Associate Pathologist Name Role Phone Gilmore Josselyn DAWKINS Primary Care Provider [phone] Allergies No known active allergies Medications nicotine [...] -I called her surgeon -Dr Layne at [phone]- not able to help w scheduling apt [...] Overview (04/22/2023): Referred to Dr. layne from [facility] ED 04/21/23 Assessment & Plan (06/24/2023 5:02 PM EST): Plan for surgery, see assessment below Inguinal lymphadenitis 06/13/2022 Encounters Date Type Department Care Team Description 09/06/2024 Orders Only [facility] [address] [place] [address] Provider, MD Kenyatta 09/01/2024 Orders Only GENERIC EXTERNAL DATA DEPARTMENT Provider, Generic External Data 08/22/2024 9:40 AM EDT Office Visit [facility] [address] [place] [address] Daniel Blackmon MD Acute left-sided low back pain without sciatica (Primary Dx); Acute left-sided thoracic back pain 08/16/2024 10:00 AM EDT Office Visit [facility] [address] [place] [address] Dimitry Wolf DDS 07/27/2024 9:00 AM EDT Office Visit [facility] [address] [place] [address] Ana Luisa Scruggs CNM Vulvar abscess (Primary Dx); HSIL (high grade squamous intraepithelial lesion) on Pap smear of cervix; Hidradenitis suppurativa 07/27/2024 Travel 07/26/2024 Orders Only [address] [address] Ana Luisa Scruggs CNM HSIL (high grade squamous intraepithelial lesion) on Pap smear of cervix (Primary Dx) 07/19/2024 9:00 AM EDT Procedure Visit [address] [address] Ana Luisa Scruggs CNM Cervical cancer screening (Primary Dx); Dysmenorrhea; Procreative management; Screening examination for venereal disease; Vulvar abscess 07/19/2024 Travel 07/11/2024 Telephone [facility] [address] [place] [address] Ana Luisa Scruggs CNM 07/04/2024 8:00 AM EDT Office Visit [facility] [address] [place] [address] Rosaura Corral Impacted tooth (Primary Dx); Dental calculus; Dental plaque from Last 3 Months Immunizations Immunization Administration Dates Next Due DTaP 01/10/2004, 2,06/23/2000,05/14,02/18/2000 [...] Health Questionnaire-2 Score 0 06/24/2023 Comments No Intention Date Recorded Wants to become (finding) 07/27 Sex and Gender Information Value Date Recorded [...] 12/09/2024 9:45 AM EDT Office Visit [facility] [address] [place] [address] Naresh Mario MD [address] [place] [address] 01/05/2025 8:00 AM EDT Office Visit [facility] [address], [place] [phone] Rosaura Corral Health Maintenance Due Date Last Done Comments COVID-19 Vaccine ( season) 2023 Influenza Vaccine (#1) 2023 07/09/2021, 2018 Depression Screening 06/24/2024 06/24/2023, 06/24/19 SDOH Screening 06/24/2024 06/24/2023 Dental Oral Exam 01/05/2025 07/04/2024 Dental Prophylaxis 01/05/2025 07/04/2024, 05/20/2021 Alcohol/Substance Use Screening 05/13/2025 05/13/2024 Dental X-Ray: Bitewings 07/05/2025 07/05/19, 05/20/2021, 03/16/2019 Family Planning (PISQ) 07/27/2025 07/27/2024 Tobacco Screening 08/22/2025 08/22/2024 Dental X-Ray: Full Mouth 07/06/2027 025, 05/10/2024, 05/20/2021 Pap Smear 07/20/2027 07/19/2024, 03/0 06/2021, 06/27/2021 Lipid Panel 05/13/2029 05/13/2024 DTaP/Tdap/Td Vaccines [...] Completed 07/27/2024, 09/2023, 06/28/2020, Additional history exists Colposcopy Discontinued 09/01/2024 Meningococcal B Vaccine Aged Out No l onger eligible based on patient's age to complete this topic Pneumococcal Vaccine: Pediatrics (0 to 5 Years) [...] Procedure Name Priority Date/Time Associated Diagnosis Comments HEMATOXYLIN AND EOSIN STAIN Routine 09/01/2024 10:52 AM EDT COLPOSCOPY Routine 09/01/2024 8:22 AM EDT 31 PETER RESIN-BASED COMPOSITE - 2 SURF, POSTERIOR Routine 08/16/2024 10:00 AM EDT 2 LO RESIN-BASED COMPOSITE - 2 SURF, POSTERIOR Routine 08/16/2024 10:00 AM EDT US PELVIS TRANSVAGINAL Urgent 8:20 AM EDT Dysmenorrhea PROLACTIN Routine 07/19/2024 [...] ESTABLISHED PATIENT Routine 07/04/2024 8:00 AM EDT HEPATITIS C AB W/REFL TO HCV RNA, QN, PCR Routine 05/13/2024 11:02 AM EST Obesity (BMI 35.0-39.9 without comorbidity) HIV 1/2 ANTIGEN/ANTIBODY, FOURTH GENERATION W/RFL Routine 05/13/2024 11:02 AM EST Obesity (BMI 35.0-39.9 without comorbidity) LIPID PANEL, STANDARD Routine 05/13/2024 11:02 AM EST Obesity (BMI 35.0-39.9 without comorbidity) from Last 3 Months or Most Recently Relevant to Health Maintenance Results * Hematoxylin and Eosin Stain (09/01/2024 10:52 AM EDT) 09/01/2024 10:5 2 AM EDT 09/01/2024 1:51 PM EDT [facility] - 09/05/2024 4:14 PM EDT ----- ------- Name: Clemente Marshall,Jaimee ? Age/Sex: 23/F ? : 2000 Unit#: [id number] ?? Attend Dr: Kings Alexander MD ?Re09/01/24 ?Status: DEP REF ? Location: HO.LNP ?Disch: ? ----- ------- SPEC : [id number] ? RECD: 09/01/24-6711 ? STATUS: ??SOUT ? REQ NUM: [id number] ? NIYA: 09/01/24-1052 ? SUBM DR: Kings Alexander MD ? ENTERED: ??09/01/24-6578 ?SP TYPE: Surgical ? OTHR DR: JOSSELYN GILMORE NP ? ORDERED: ??HE Stain/23, Gross Micro L4/8, IHC/2, Add. immunos/2, Ki-67/2, p16/2 ? Diagnosis ?? A. ??Endocervix, curettage: ??Abundant blood with rare endocervical glandular epithelial ?? cells; insufficient for endocervical evaluation. ? B. ??Cervix, 3:00, biopsy: ??Squamous and endocervical glandular mucosa with inflammation ?? and reactive changes; negative for dysplasia. ? C. ??Cervix, 4:00, biopsy: ??Squamous mucosa; negative for dysplasia; no endocervical ?? glandular component present. ? D. ??Cervix, 6:00, biopsy: ??Squamous and endocervical glandular mucosa with inflammation ?? and reactive changes; negative for dysplasia. ? E. ??Cervix, 7:00, biopsy: ??Squamous and endocervical glandular mucosa with inflammation ?? and reactive changes; negative for dysplasia. ? F. ??Cervix, 9:00, biopsy: ??High-grade squamous intraepithelial lesion (severe dysplasia, ?? CHEMA III), involving endocervical glands. ? G. ??Cervix, 11:00, biopsy: ??High-grade squamous intraepithelial lesion (severe dysplasia, ?? CHEMA III), involving endocervical glands. ? H. ??Cervix, 12:00, biopsy: ??Squamous and endocervical glandular mucosa with focal ?? atypical squamous metaplastic cells (not present on deeper levels). ? Comment: ??The high-grade dysplastic cells seen in the patient's previous Pap test (CY25- ?? 430) concur with the current biopsy. ?Clinical History HGSIL on PAP smear ?Microscopic Description Microscopic sections reviewed. ??Immunostains on F and G show increased Ki-67 staining and diffuse strong positive p16 staining. ??Controls stain appropriately. ? Material Received ?? A. ECC ?? B. Cx bx 3 o'clock ?? C. Cx bx 4 o'clock ?? D. Cx bx 6 o'clock ? CONTINUED ON NEXT PAGE ----- ------- Name: Clemente MarshallJaimee ? Age/Sex: 23/F ? : 2000 Unit#: [id number] ?? Attend Dr: Kings Alexander MD ?Re09/01/24 ?Status: DEP REF ? Location: HO.LNP ?Disch: ? ----- ------- SPEC : [id number] ? RECD: 09/01/24-3591 ? STATUS: ??SOUT ? REQ NUM: [id number] ? NIYA: 09/01/24-1052 ? SUBM DR: Kings Alexander MD ? ENTERED: ??09/01/24-9951 ?SP TYPE: Surgical ? OTHR DR: JOSSELYN GILMORE NP ? ORDERED: ??HE Stain/23, Gross Micro L4/8, IHC/2, Add. immunos/2, Ki-67/2, p16/2 ? Material Received ?(Continued) ?? E. Cx bx 7 o'clock ?? F. Cx bx 9 o'clock ?? G. Cx bx 11 o'clock ?? H. Cx bx 12 o'clock ? Gross Description Received in eight parts. Part A: ??Received in formalin labeled ?ECC? is a 0.2 x 0.1 x 0.05 cm aggregate of predominantly red-maroon blood and mucus, submitted in toto in a cassette labeled A. Part B: ??Received in formalin labeled ?cx bx 3 is a 0.45 cm rubbery, canseco- pink wedge-shaped fragment of mucosa, submitted in toto in a cassette labeled B. Part C: ??Received in formalin labeled cx bx 4 is a 0.35 cm rubbery, canseco-pink wedge-shaped fragment of mucosa, submitted in toto in a cassette labeled C. Part D: ??Received in formalin labeled ?cx bx 6? along with scant mucus and blood is a 0.35 cm rubbery, canseco-pink wedge-shaped fragment of mucosa, submitted in toto in a cassette labeled D. Part E: ??Received in formalin labeled ?cx bx 7? is a 0.6 cm rubbery, canseco-pink irregular fragment of mucosa, submitted in toto in a cassette labeled E. Part F: ??Received in formalin labeled ?cx bx 9? is a 0.4 cm rubbery, canseco-pink wedge-shaped fragment of mucosa, submitted in toto in a cassette labeled F. Part G: ??Received in formalin labeled ?cx bx 11? is a 0.25 cm rubbery, canseco-pink fragment of mucosa along with a 1.0 x 0.9 x 0.2 cm aggregate of clear mucus and blood, submitted in toto in a cassette labeled G. Part H: ??Received in formalin labeled cx bx 12 are 2 rubbery, canseco-white irregular fragments of mucosa measuring 0.25 and 0.3 cm, submitted in toto in a cassette labeled H. CEDS Special studies ordered and performed: ??Ki-67 and p16 on F1 and G1. ? CONTINUED ON NEXT PAGE ----- ------- Name: Jaimee Rdz ? Age/Sex: 23/ ? : 2000 Unit#: [id number] ?? Attend Dr: Kings Alexander MD ?Re09/01/24 ?Status: DEP REF ? Location: HO.LNP ?Disch: ? ----- ------- SPEC : [id number] ? RECD: 09/01/24-2838 ? STATUS: ??SOUT ? REQ NUM: [id number] ? NIYA: 09/01/24-1052 ? SUBM DR: Kings Alexander MD ? ENTERED: ??09/01/24-1406 ?SP TYPE: Surgical ? OTHR DR: JOSSELYN GILMORE NP ? ORDERED: ??HE /, Gross Micro L4/8, IHC/2, Add. immunos/2, Ki-67/2, p16/2 ? Copies To: ?? JOSSELYN GILMORE NP ?? [facility] ?? [address] ?? [place] [address] ?? [phone] ?? Kings Alexander MD ?? [facility] Women[facility] Services ?? [address] ?? [place] [address] ?? [phone] ----- ------- Signed (signature on file) Catina Guardado 09/05/24 2914 ? ----- ------- ? END OF REPORT ? us Generic External Data Provider LAB BLOOD ORDERAB LES Final Result [facility] [address] [place] [address] [phone] * Colposcopy (09/01/2024 8:22 AM EDT) us Historical Provider MD IN CLINIC/BEDSIDE ORDERAB LES Final Result * US Pelvis Transvaginal (07/22/2024 8:20 AM EDT) Anatomical Region Laterality Modality Pelvis Ultrasound 07/22/2024 8:20 AM EDT Narrative 07/22/2024 10:09 AM EDT ? [facility] ?[address] ?[place] ? Ultrasound Report ? Signed ? Patient: Gormalikaa Marshall,Jaimee ?MR#: [id number] ?? [id number] ? : 2000 ?Acct:[id number] ? Age/Sex: 23 / F ?ADM Date: 07/22/24 ? Loc: HO.US ? Attending Dr: Ana Luisa Scruggs CNM ? Ordering Physician: ANA LUISA SCRUGGS CNM ?? Date of Service: 07/22/24 ?? Procedure(s): US pelvic and transvaginal ?? Accession Number(s): [id number] ? cc: ANA LUISA SCRUGGS CNM; JOSSELYN [...] and echotexture. ? Pelvic fluid: none. ? US/ pelvic and transvaginal ?? IMPRESSION: ?? Small amount of fluid in the endometrial canal. Nabothian cysts in the ?? cervix. Otherwise unremarkable pelvic ultrasound. ? Electronically signed by: ??Ilia Tang MD ??07/22/2024 10:06 AM EDT ? Dictated By: ?Ilia Tang MD ? Signed By: ?<Electronically signed by Ilia Tang MD in OV> ?07/22/24 1006 ? DD/ 0820 ? TD/TT: 07/22/24 0840 ? Line Tester: ? Procedure Note Greta Norton - 07/22/2024 [place] [address] Ultrasound Report Signed Patient: Taras Rdz#: [id number] : 2000Acct:[id number] Age/Sex: 23 FADM Date: 07/22/24 Loc: HO.US Attending Dr: Ana Luisa Scruggs CNM Ordering Physician: ANA LUISA SCRUGGS CNM Date of Service: 07/22/24 Procedure(s): US pelvic and transvaginal Accession Number(s): [id number] cc: ANA LUISA SCRUGGS CNM; JOSSELYN GILMORE [...] 07/22/24 1006 DD/ 0820 TD/TT: 07/22/24 0840 Line Tester: Ana Luisa Scruggs CNM IMG US PROCEDURES Final R esult * TSH W/Reflex to FT4 (07/19/2024 9:35 AM EDT) TSH reflex Free T4 1.16 0.32 - 4.0 uIU/mL [facility] Blood Venous blood specimen / Unknown 07/19/2024 9:35 AM EDT 07/19/2024 11:23 AM EDT Ana Luisa Scruggs CNM LAB BLOOD ORDERABLES Laxmi l Result [facility] [address] [place] [phone] * Prolactin (07/19/2024 9:35 AM EDT) Prolactin 9.1 ng/mL [facility] Comment:Reference Range Fema les Non- 3.0-30.0 10.0-209.0 Postmenopausal 2.0-20.0THIS TEST WAS PERFORMED AT:[facility] [place] [phone] CARBONE MD Blood Venous blood specimen / Unknown 07/19/2024 9:35 AM EDT 07/19/2024 11:23 AM EDT Ana Luisa Scruggs [facility] BLOOD ORDERABLES Laxmi [place] Result [facility] [address] [place] [address] [phone] * STI testing add on (NG, CT, Trich) (07/19/2024 9:30 AM EDT) Trichomonas (NAAT) NOT DETECTED [facility] Comment:REFERENCE RANGE: NOT DETECTEDThe analytical performance characteristics of thisassay, when used to test SurePath(TM) specimens have beendetermined by [employer]. The modifications havenot been cleared or approved by the FDA. This assay hasbeen validated pursuant to the CLIA regulations and isused for clinical purposes.For additional information, please refer tohttps://education.Urban Times.Virtual Paper/faq/AZL660(This link is being provided for information/educational purposes only.)For additional information, please refer tohttp://education.[employer].Virtual Paper/faq/Trichomonastma(This link is being provided for informational/educational purposes only.)THIS TEST PERFORMED AT:[facility] [place] [phone] DIRECTOR: ROBERTO CARBONE MD CTNG Ref Lab NOT DETECTED NOT DETECTED [facility] NG Ref Lab NOT DETECTED NOT DETECTED [facility] ThinPrep?? vial Cervix uteri structure / Unknown 07/19/2024 9:30 AM EDT 07/20/2024 7:30 AM EDT Narrative [facility] - 07/27/2024 2:28 PM EDT Collection Date: [id number] by: JORDI Serrano: Cervix Ana Luisa Scruggs CNM LAB CYTOLOGY ORDERABLES F inal Result [facility] [address] [place] [address] [phone] * Pap Smear (07/19/2024 9:30 AM EDT) Swab Cervix uteri structure / Unknown 07/19/2024 9:30 AM EDT 07/20/2024 7:30 AM EDT Narrative [facility] - 07/25/2024 3:18 PM EDT ----- ------- Name: Jaimee Rdz ? Age/Sex: 23/F ? : 2000 Unit#: [id number] ?? Attend Dr: ANA LUISA SCRUGGS CNM ?Re07/19/24 ?Status: DEP REF ? Location: HO.LNP ?Disch: ? ----- ------- SPEC : [id number] ? RECD: 07/20/24 ? STATUS: ??SOUT ? REQ NUM: [id number] ? NIYA: 07/19/24 ? SUBM DR: ANA [...] ----- ------- Signed (signature on file) Catina Debby 07/25/24 1518 ? ----- ------- ? END OF REPORT ? us Ana Luisa Scruggs [facility] CYTOLOGY ORDERABLES F inal Result Performing Organization Address [facility] de Phone Number [facility] [address] [place] [phone] * Hepatitis C Antibody with Reflex to HCV, RNA, Quantitative, Real-Time PCR (05/13/2024 11:02 AM EST) Hepatitis C Antibody Nonreactive Nonreactive [facility] Comment:Antibodies to HCV no t detected; does not exclude early acuteHCV infection. Blood Venous blood specimen / Unknown 05/13/2024 11:02 AM EST 05/13/2024 2:12 PM EST us Baldev Dowling MD LAB BLOOD ORDERABL ES Final Result Performing Organization Address [facility] Co de Phone Number [facility] [address] [place] [phone] * HIV-1/2 Antigen and Antibodies, Fourth Generation, with Reflexes (05/13/2024 11:02 AM EST) HIV AB/AG Nonreactive Nonreactive [facility] Comment:HIV-1 p24 Ag and/or HIV-1/HIV-2 Ab not detected.A test result that is nonreactive does not exclude thepossibility of exposure to or infection with HIV-1 and/orHIV-2. Nonreactive results in this assay for individualswith prior exposure to HIV-1 and/or HIV-2 may be due toantigen and antibody levels that are below the limit ofdetection of this assay.The iWeebo HIV Ag/Ab Combo assay result andsupplemental assay results should be interpreted inconjunction with the patient's clinical presentation,history and other laboratory results. If the results areinconsistent with clinical evidence, additional testing issuggested to confirm the result. Blood Venous blood specimen / Unknown 05/13/2024 11:02 AM EST 05/13/2024 2:12 PM EST us Baldev Dowling MD LAB BLOOD ORDERABL ES Final Result [facility] [address] [place] [address] [phone] * Lipid Panel, Standard (05/13/2024 11:02 AM EST) Triglycerides 46 <150 mg/dL [facility] Comment:Desirable Triglyceri de: less than 150 mg/dLBorderline High Triglyceride 150-199 mg/dLHigh Triglyceride: 200-499 mg/dLVery High Triglyceride: greater than or equal to 5OO mg/dL Cholesterol 131 <200 mg/dL [facility] Comment:Desirable Cholestero l: less than 200 mg/dLBorderline High Cholesterol: 200-239 mg/dLHigh Cholesterol: greater than 239 mg/dL LDL Cholesterol Calculated 69 <100 mg/dL [facility] Comment:Desirable LDL: less than 100 mg/dLNear Optimal/Above Optimal LDL: 110- 129 mg/dLBorderline High LDL: 130-159 mg/dLHigh LDL: 160-189 mg/dLVery High LDL: greater than or equal to 190 mg/dL HDL Cholesterol 53 >40 mg/dL [facility] Comment:Desirable HDL: great er than 40 mg/dL Note: This HDL assay may give artificially low results in patients with liver disease. Blood Venous blood specimen / Unknown 05/13/2024 11:02 AM EST 05/13/2024 2:12 PM EST Baldev Dowling MD LAB BLOOD ORDERABL ES Final Result [facility] [address] [place] [phone] [phone] from Last 3 Months or Most Recently Relevant to Health Maintenance [place] [address] [place] [address] , [address] [place] [address] [facility] - HSN FULL (MEDICAID) Care Teams Associate Pathologist Relationship Specialty Start Date End Date Josselyn Gilmore ANP [address] [place] [address] PCP - General Family Medicine 06/14/19
--- OUTSIDE RECORDS SUMMARY | 2024-09-07 09:01 | XMS_ITS | Encounter Summary ---
Author Organization [employer] Address [address] [place] [address] Care Team Providers Care Social And Human Services Assistant Name Role Phone Flaco Josselyn DAWKINS Primary Care Provider [phone] Encounter Details Date Type Department Care Team (Late st Contact Info) Description 09/01/2024 Orders Only GENERIC EXTERNAL DATA DEPARTMENT Provider, Generic External Data Social History Tobacco Use Types Packs/Day Years [...] Description 12/09/2024 9:45 AM EDT Office Visit [facility] [address] [place] [address] Naresh Mario MD [address] [place] [address] 01/05/2025 8:00 AM EDT Office Visit [facility] [address] [place] [address] Rosaura Corral documented as of this encounter Procedures Procedure Name Priority Date/Time Associated Diagnosis Comments HEMATOXYLIN AND EOSIN STAIN Routine 09/01/2024 10:52 AM EDT documented in this encounter Results * Hematoxylin and Eosin Stain (09/01/2024 10:52 AM EDT) 09/01/2024 10:5 2 AM EDT 09/01/2024 1:51 PM EDT [facility] - 09/05/2024 4:14 PM EDT ----- ------- Name: Jaimee Rdz ? Age/Sex: 23/F ? : 2000 Unit#: [id number] ?? Attend Dr: Kings Alexander MD ?Re09/01/24 ?Status: DEP REF ? Location: HO.LNP ?Disch: ? ----- ------- SPEC : [id number] ? RECD: 09/01/24-1351 ? STATUS: ??SOUT ? REQ NUM: [id number] ? NIYA: 09/01/24-1052 ? SUBM DR: Kings Alexander MD ? ENTERED: ??09/01/24-1186 ?SP TYPE: Surgical ? OTHR DR: JOSSELYN [...] ? Age/Sex: 23/F ? : 2000 Unit#: [id number] ?? Attend Dr: Kings Alexander MD ?Re09/01/24 ?Status: DEP REF ? Location: HO.LNP ?Disch: ? ----- ------- SPEC : [id number] ? RECD: 09/01/24-735 ? STATUS: ??SOUT ? REQ NUM: [id number] ? NIYA: 09/01/24-1052 ? SUBM DR: Kings Alexander MD ? ENTERED: ??09/01/24-5113 ?SP TYPE: Surgical ? OTHR DR: JOSSELYN GILMORE NP ? ORDERED: ??HE /23, Gross Micro L4/8, IHC/2, Add. immunos/2, Ki-67/2, [...] ----- ------- Name: Clemente MarshallJaimee ? Age/Sex: ? : 2000 Unit#: [id number] ?? Attend Dr: Kings Alexander MD ?Re09/01/24 ?Status: DEP REF ? Location: HO.LNP ?Disch: ? ----- ------- SPEC : [id number] ? RECD: 09/01/24-8721 ? STATUS: ??SOUT ? REQ NUM: [id number] ? NIYA: 09/01/24-1052 ? SUBM DR: Kings Alexander MD ? ENTERED: ??09/01/24-5698 ?SP TYPE: Surgical ? OTHR : JOSSELYN GILMORE NP ? ORDERED: ??HE Stain/23, Gross Micro L4/8, IHC/2, Add. immunos/2, Ki-67/2, p16/2 ? Copies To: ?? JOSSELYN GILMORE NP ?? [facility] ?? [address] ?? [place] [address] ?? [phone] ?? Kings Alexander MD ?? [facility] ?? [address] ?? [place] [address] ?? [phone] ----- ------- Signed (signature on file) Catina Guardado 09/05/244 ? ----- ------- ? END OF REPORT ? us Generic External Data Provider LAB BLOOD ORDERAB LES Final Result [facility] [address] [facility] [place] [phone] [phone] documented in this encounter Visit Diagnoses Not on filedocumented in this encounter Additional Health Concerns Assessment Noted Time PHQ-9 Depression Total Score: 0 06/24/19 24 10:01 AM EST documented as of this encounter Care Teams Social And Human Services Assistant Relationship Specialty Start Date End Date Josselyn Gilmore ANP [address] [place] [address] PCP - General Family Medicine 06/14/19 documented as of this encounter
--- OUTSIDE RECORDS SUMMARY | 2024-09-07 09:01 | XMS_ITS | Clinical Summary ---
Author Organization [facility] Address [address] [place] [address] Care Team Providers Care Industrial Services Worker Name Role Phone Unavailable Primary Care Provider [...]
== END 2024-09-07 09:33 | disposition home or self-care (01) ==
LOC: HO.HWS 08:43
PROVIDERS: PCP Nurse Practitioner Primary Care; Visit Provider Obstetrics & Gynecology
DX: D06.9 Carcinoma in situ of cervix, unspecified (principal)
CPT/HCPCS: 99213

== ENCOUNTER 2024-09-14 08:35 | Outpatient (AMB) | payer OTHER, SELFPAY ==
--- NOTE | 2024-09-14 08:36 | A.OFFVIS_ITS ---
Vital Signs 09/14/24 08:38 Height 5 ft 6 in Weight 240 lb BMI 38.7 BP 120/78 Intake Visit Reasons: ECC results Hosiery Mender Required: No Information Interpreted: non-clinical & clinical Trawl Net Maker: Trawl Net Maker Present Accompanied by: Self / Same As Patient Allergies No Known Allergies Allergy (Verified 09/14/24 08:38) Is last menstrual period known: Yes Last menstrual period: 02/23/20 Post menopausal: No Patient : No Do you need a note to return to daycare/school/sports/work: Yes (for surgery on thursday) HPI Comments Details: Presenting for follow-up after ECC. Pathology showed the following: Endocervix, curettage: Endocervical glandular mucosa with focal metaplastic squamous epithelium with reactive and reparative changes; negative for dysplasia. Colpo biopsy ECC done on 09/01/2024 pathology showed the following: A. Endocervix, curettage: Abundant blood with rare endocervical glandular epithelial cells; insufficient for endocervical evaluation. B. Cervix, 3:00, biopsy: Squamous and endocervical glandular mucosa with inflammation and reactive changes; negative for dysplasia. C. Cervix, 4:00, biopsy: Squamous mucosa; negative for dysplasia; no endocervical glandular component present. D. Cervix, 6:00, biopsy: Squamous and endocervical glandular mucosa with inflammation and reactive changes; negative for dysplasia. E. Cervix, 7:00, biopsy: Squamous and endocervical glandular mucosa with inflammation and reactive changes; negative for dysplasia. F. Cervix, 9:00, biopsy: High-grade squamous intraepithelial lesion (severe dysplasia, CHEMA III), involving endocervical glands. G. Cervix, 11:00, biopsy: High-grade squamous intraepithelial lesion (severe dysplasia, CHEMA III), involving endocervical glands. H. Cervix, 12:00, biopsy: Squamous and endocervical glandular mucosa with focal atypical squamous metaplastic cells (not present on deeper levels). Comment: The high-grade dysplastic cells seen in the patient's previous Pap test ([id number]) concur with the current biopsy [facility] Medical History No known health problems Surgical History S/P laparoscopic cholecystectomy History of tonsillectomy Family History Maternal Grandmother Diabetes Colon cancer Social History Household Members: Family Housing: House Do you presently have visiting nurse or other home services: No Alcohol intake: current Alcohol intake frequency: holidays/special occasions only Comment: nausea much less Patient Tobacco Use Status: Former Tobacco user Tobacco use type: Cigarette Cigarettes Per Day: 2 Years Smoked: 3 e-Cigarette/Vaping Use: Currently Using Substance Use Type: Marijuana service: No 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 Sexual orientation: Straight/Heterosexual Gender identity: Female Female Reproductive History Menstrual Date of last menstrual period: 02/23/20 Total pregnancies: 2 Full term: 2 Review of Systems Card Reports as per HPI and Reports no additional complaints Resp Reports as per HPI and Reports no additional complaints GI Reports as per HPI and Reports no additional complaints Reports as per HPI Physical Exam Vital Signs: Last Vital Signs BP 120/78 09/14/24 08:38 BMI result Body Mass Index 38.7 Const General: cooperative, healthy appearing and comfortable Resp Effort & Inspection: normal respiratory effort Auscultation: clear to auscultation bilaterally Percussion: percussion normal Cardio Palpation: normal PMI Rate: regular rate Rhythm: regular rhythm Heart sounds: no murmurs and no rubs Peripheral pulses: Peripheral pulses 2+ throughout GI Inspection: Yes normal to inspection Palpation (GI): Soft to palpation, nontender, no guarding, not rigid and No hepatosplenomegaly present Percussion: Yes normal to percussion Auscultation: normal bowel sounds Rectal Exam - Female: deferred Assessment & Plan Assessment & Plan (1) 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: Code(s): D06.9 - Carcinoma in situ of cervix, unspecified Category: Medical Plan: Discussed with the patient the pathology results of the colposcopy biopsies & endocervical curettage ( severe dysplasia-CHEMA 3). Discussed with the patient the sensitivity specificity, positive and negative predictive value in detecting cervical cancer in addition discussed the regression, persistence and progression rates. Addition discussed with the patient the risk of progression to cancer and impact of excision procedure on her future . Recommended excisional procedures, LEEP possible cone with post cone ECC. Discussed with the patient the procedure, its benefits and risks including bleeding, infection, possible need for blood transfusion with all its risk ( HIV, syphilis, Hepatitis, anaphylaxis shock, others..), injury to bladder, rectum, possible need for re-excision or hysterectomy for positive margins, potential need for hysterectomy, possible future negative impact on fertility including ( cervical stenosis, incompetence , increase risk for c section 2ndary to cervical scarring and failure of dilatation). ). Also discussed the patient options of anesthesia either paracervical block versus IV sedation/MAC, prefers to proceed with IV sedation/MAC . All questions answered, the patient verbalized understanding and signed the consent. Instructions given to patient to schedule a postop appointment. Coding Level of Care Code Est Pt Level 3 (33415) Diagnoses 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 D06.9
[2024-09-14 08:38] VITALS: BP 120/78; BMI 38.7
== END 2024-09-14 09:00 | disposition home or self-care (01) ==
LOC: HO.HWS 08:35
PROVIDERS: PCP Nurse Practitioner Primary Care; Visit Provider Obstetrics & Gynecology
DX: D06.9 Carcinoma in situ of cervix, unspecified (principal)
CPT/HCPCS: 99213

== ENCOUNTER 2024-09-20 12:49 | Day surgery (SDC) | payer OTHER, SELFPAY ==
--- OUTSIDE RECORDS SUMMARY | 2024-09-14 12:08 | XMS_ITS | Encounter Summary ---
Author Organization [employer] Address [address] 7[address] [place] [address] Care Team Providers Care Lead Technician Name Role Phone Lisa Sam Primary Care Provider [phone] Encounter Details Date Type Department Care Team (Latest Contact Info) Description 05/20/2021 Abstract [facility] CONVERSIONS Dental, Provider, DDS Social History [...] 9:45 AM EDT Office Visit [facility] MEDICINE [address] [place] [address] Naresh Mario MD [address] [place] [address] 01/05/2025 8:00 AM EDT Office Visit [facility] ADULT DENTAL [address] [place] [address] Rosaura Corral documented as of this encounter Visit Diagnoses Not on filedocumented in this encounter Care Teams Lead Technician Relationship Specialty Start Date End Date Lisa Sam ANP [address] [place] [address] PCP - General Family Medicine 06/14/19 documented as of this encounter
--- OUTSIDE RECORDS SUMMARY | 2024-09-14 12:08 | XMS_ITS | Clinical Summary ---
Author Organization [facility] it[facility] Address [address] [place] [address] Care Team Providers Care Orchard Worker Name Role Phone Unavailable Primary Care [...]
--- OUTSIDE RECORDS SUMMARY | 2024-09-14 12:08 | XMS_ITS | Encounter Summary ---
Author Organization [employer] Address [address] 7[address] [place] [address] Care Team Providers Care Platform Builder Name Role Phone Lisa Sam Primary Care Provider [phone] Encounter Details Date Type Department Care Team ([facility] st Contact Info) Description 09/12/2024 Orders Only [facility] MED & PEDS [address] [place] [address] Provider, MD Kenyatta Social History Tobacco Use [...] Description 12/09/2024 9:45 AM EDT Office Visit [facility] MEDICINE [address] [place] [address] Naresh Mario MD [address] [place] [address] 01/05/2025 8:00 AM EDT Office Visit [facility] ADULT DENTAL [address] [place] [address] Rosaura Corral documented as of this encounter Procedures Procedure Name Priority Date/Time Associated Diagnosis Comments BIOPSY CERVIX Routine 09/07/2024 12:41 PM EDT documented in this encounter Results * Biopsy cervix (09/07/2024 12:41 PM EDT) Historical Provider IN CLINIC/BEDSIDE ORDERAB LES Final Result documented in this encounter Visit Diagnoses Not on filedocumented in this encounter Additional Health Concerns Assessment Noted Time PHQ-9 Depression Total Score: 0 06/24/19 24 10:01 AM EST documented as of this encounter Care Teams Platform Builder Relationship Specialty Start Date End Date Lisa Sam ANP [address] [place] [address] PCP - General Family Medicine 06/14/19 documented as of this encounter
--- OUTSIDE RECORDS SUMMARY | 2024-09-14 12:08 | XMS_ITS | Encounter Summary ---
Author Organization [employer] Address [address] [place] [address] Care Team Providers Care Steam Shovel Oiler Name Role Phone Lisa Sam Primary Care Provider [phone] Encounter Details Date Type Department Care Team ([facility] st Contact Info) Description 09/06/2024 Orders Only [facility] MED & PEDS [address] [place] [address] Provider, MD Kenyatta Social History Tobacco Use [...] Description 12/09/2024 9:45 AM EDT Office Visit [facility] MEDICINE [address] [place] [address] Naresh Mario MD [address] [place] [address] 01/05/2025 8:00 AM EDT Office Visit [facility] ADULT DENTAL [address] [place] [address] Rosaura Corral documented as of this encounter [...] documented as of this encounter Care Teams Steam Shovel Oiler Relationship Specialty Start Date End Date Lisa Sam ANP [address] [place] [address] PCP - General Family Medicine 06/14/19 documented as of this encounter
--- OUTSIDE RECORDS SUMMARY | 2024-09-14 12:08 | XMS_ITS | Clinical Summary ---
Author Organization [employer] Address [address] [place] [address] Care Team Providers Care Biometry Teacher Name Role Phone Flaco Josselyn DAWKINS Primary Care Provider [phone] Allergies No known active allergies Medications nicotine [...] -I called her surgeon -Dr Layne at [phone]- not able to help w scheduling apt [...] Overview (04/22/2023): Referred to Dr. layne from [facility] ED 04/21/23 Assessment & Plan (06/24/2023 5:02 PM EST): Plan for surgery, see assessment below Inguinal lymphadenitis 06/13/2022 Encounters Date Type Department Care Team Description 09/12/2024 Orders Only [facility] MED & PEDS [address] [place] [address] Kenyatta Rayo MD 09/07/2024 Orders Only GENERIC EXTERNAL DATA DEPARTMENT Provider, Generic External Data 09/06/2024 Orders Only [facility] MED & PEDS [address] [place] [address] Kenyatta Rayo MD 09/01/2024 Orders Only GENERIC EXTERNAL DATA DEPARTMENT Provider, Generic External Data 08/22/2024 9:40 AM EDT Office Visit [facility] [address] [place] [address] Daniel Blackmon MD Acute left-sided low back pain without sciatica (Primary Dx); Acute left-sided thoracic back pain 08/16/2024 10:00 AM EDT Office Visit [facility] ADULT D[facility] [address] [place] [phone] Dimitry Wolf DDS 07/27/2024 9:00 AM EDT Office Visit [facility] [address] [place] [phone] Ana Luisa Scruggs CNM Vulvar abscess (Primary Dx); HSIL (high grade squamous intraepithelial lesion) on Pap smear of cervix; Hidradenitis suppurativa 07/27/2024 Travel 07/26/2024 Orders Only [address] [address] Ana Luisa Scruggs CNM HSIL (high grade squamous intraepithelial lesion) on Pap smear of cervix (Primary Dx) 07/19/2024 9:00 AM EDT Procedure Visit [facility] [address] [place] [address] Ana Luisa Scruggs CNM Cervical cancer screening (Primary Dx); Dysmenorrhea; Procreative management; Screening examination for venereal disease; Vulvar abscess 07/19/2024 Travel 07/11/2024 Telephone [facility] [address] [place], [place] [phone] Ana Luisa Scruggs CNM 07/04/2024 8:00 AM EDT Office Visit [facility] [address] [place] [address] Rosaura Corral Impacted tooth (Primary Dx); Dental [...] Description 12/09/2024 9:45 AM EDT Office Visit [facility] [address] [place] [address] Naresh Mario MD [address] [place] [address] 01/05/2025 8:00 AM EDT Office Visit [facility] ADULT D[facility] [address] [place], [place] [phone] Rosaura Corral Health Maintenance Due Date Last Done Comments Disability Screening 2000 COVID-19 Vaccine ( season) 2023 Influenza Vaccine [...] 09/2023, 06/28/2020, Additional history exists Colposcopy Discontinued 09/07/2024, 09/01/2024 Meningococcal B Vaccine Aged Out No [...] BIOPSY CERVIX Routine 09/07/2024 12:41 PM EDT HEMATOXYLIN AND EOSIN STAIN Routine 09/07/2024 9:34 AM EDT HEMATOXYLIN AND EOSIN STAIN Routine 09/01/2024 10:52 [...] Recently Relevant to Health Maintenance Results * Biopsy cervix (09/07/2024 12:41 PM EDT) us Historical Provider MD IN CLINIC/BEDSIDE ORDERAB LES Final Result * Hematoxylin and Eosin Stain (09/07/2024 9:34 AM EDT) Only the most recent of2 resultswithin the time period is included. 09/07/2024 9:34 AM EDT 09/07/2024 1:26 PM EDT [facility] - 09/08/2024 3:44 PM EDT ----- ------- Name: Jaimee Rdz ? Age/Sex: 23/F ? : 2000 Unit#: [id number] ?? Attend Dr: Kings Alexander MD ?Re09/07/24 ?Status: DEP REF ? Location: HO.LNP ?Disch: ? ----- ------- SPEC : [id number] ? RECD: 09/07/24-6 ? STATUS: ??SOUT ? REQ NUM: [id number] ? NIYA: 09/07/241827 ? SUBM DR: Kings Alexander MD ? ENTERED: ??09/07/242943 ?SP TYPE: Surgical ? OTHR DR: JOSSELYN GILMORE NP ? ORDERED: ??HE Stain/2, Gross Micro L4 ? Diagnosis ?? Endocervix, curettage: ??Endocervical glandular mucosa with focal metaplastic squamous ?? epithelium with reactive and reparative changes; negative for dysplasia. ?Clinical History CHEMA 3 ?Microscopic Description Microscopic sections reviewed. ? Material Received ?? ECC ? Gross Description Received in formalin labeled ?ECC? is a 1.2 x 1.0 x 0.35 cm aggregate of predominantly mucus and blood with delicate threads of red-maroon tissue, submitted in toto in a cassette labeled A. CEDS Copies To: ?? JOSSELYN GILMORE NP ?? [facility] ?? [address] ?? [place] [address] ?? [phone] ?? Kings Alexander MD ?? [facility] ?? [address] [place] [address] [address] ?? [place] [address] ?? [phone] ----- ------- Signed (signature on file) Catina Satartia 09/08/24 1544 ? ----- ------- ? END OF REPORT ? us Generic External Data Provider LAB BLOOD ORDERAB LES Final Result Performing Organization Address City/State/[facility] Co de Phone Number [facility] [address] [place] [address] [phone] * Colposcopy (09/01/2024 8:22 AM EDT) us Historical Provider MD IN CLINIC/BEDSIDE ORDERAB LES Final Result * US Pelvis Transvaginal (07/22/2024 8:20 AM EDT) Anatomical Region Laterality Modality Pelvis Ultrasound 07/22/2024 8:20 AM EDT Narrative 07/22/2024 10:09 AM EDT ? [facility] ?[address] ?[place] [address] ? Ultrasound Report ? Signed ? Patient: Gorbea Marshall,Jaimee ?MR#: [id number] ?? [id number] ? : 2000 ?Acct:[id number] ? Age/Sex: 23 / F ?ADM Date: 03/28/25 ? Loc: HO.US ? Attending Dr: Ana Luisa Scruggs CNM ? Ordering Physician: ANA LUISA SCRUGGS CNM ?? Date of Service: 07/22/24 ?? Procedure(s): US pelvic and transvaginal ?? Accession Number(s): [id number] ? cc: ANA LUISA SCRUGGS CNM; JOSSELYN [...] DD/ 0820 ? TD/TT: 07/22/24 0840 ? Cut Off Saw Operator: ? Procedure Note Cierra, Greta - 07/22/[address] [place] [address] Ultrasound Report Signed Patient: Taras Rdz#: [id number] : 2000Acct:[id number] Age/Sex: 23 / FADM Date: 07/22/24 Loc: .US Attending Dr: Ana Luisa Scruggs CNM Ordering Physician: ANA LUISA SCRUGGS CNM Date of Service: 07/22/24 Procedure(s): US pelvic and transvaginal Accession Number(s): [id number] cc: ANA LUISA SCRUGGS CNM; JOSSELYN GILMORE [...] 07/22/24 1006 DD/ 0820 TD/TT: 07/22/24 0840 Cut Off Saw Operator: Ana Luisa EASTMAN IM US PROCEDURES Final R esult * TSH W/Reflex to FT4 (07/19/2024 9:35 AM EDT) Pathologist [facility] TSH reflex Free T4 1.16 0.32 - 4.0 uIU/mL [facility] Blood Venous blood specimen / Unknown 07/19/2024 9:35 AM EDT 07/19/2024 11:[address] [facility] BLOOD ORDERABLES Laxmi l Result Performing Organization Address [facility] Co de Phone Number [facility] [address] [place] [phone] * Prolactin (07/19/2024 9:35 AM EDT) [facility] Prolactin 9.1 ng/mL [facility] Comment:Reference Range Fema les Non- 3.0-30.0 10.0-209.0 Postmenopausal 2.0-20.0THIS TEST WAS PERFORMED AT:[facility] [address] [phone] CARBONE MD Blood Venous blood specimen / Unknown 07/19/2024 9:35 AM EDT 07/19/2024 11:[address] [facility] LAB BLOOD ORDERABLES Laxmi l Result Performing Organization Address [facility]/ZIP Co de Phone Number [facility] [address] [place] [phone] * STI testing add on (NG, CT, Trich) (07/19/2024 9:30 AM EDT) [facility] Trichomonas (NAAT) NOT DETECTED [facility] Comment:REFERENCE RANGE: NOT DETECTEDThe analytical performance characteristics of thisassay, when used to test SurePath(TM) specimens have beendetermined by [employer]. The modifications havenot been cleared or approved by the FDA. This assay hasbeen validated pursuant to the CLIA regulations and isused for clinical purposes.For additional information, please refer tohttps://[employer]/faq/UPM912(This link is being provided for information/educational purposes only.)For additional information, please refer tohttp://education.[employer]/faq/Trichomonastma(This link is being provided for informational/educational purposes only.)THIS TEST PERFORMED AT:[employer] [address] [phone] DIRECTOR: ROBERTO CARBONE MD CTNG Ref Lab NOT DETECTED NOT DETECTED [facility] NG Ref Lab NOT DETECTED NOT DETECTED [facility] ThinPrep?? vial Cervix uteri structure / Unknown 07/19/2024 9:30 AM EDT 07/20/2024 7:30 AM EDT [facility] - 07/27/2024 2:28 PM EDT Collection Date: [id number] by: JORDI Serrano: Cervix Ana Luisa Scruggs [facility] CYTOLOGY ORDERABLES F inal Result [facility] [address] [place], [place] [phone] * Pap Smear (07/19/2024 9:30 AM EDT) Swab Cervix uteri structure / Unknown 07/19/2024 9:30 AM EDT 07/20/2024 7:30 AM EDT [facility] - 07/25/2024 3:18 PM EDT ----- ------- Name: Jaimee Rdz ? Age/Sex: 23/F ? : 2000 Unit#: [id number] ?? Attend Dr: ANA LUISA SCRUGGS CNM ?Re07/19/24 ?Status: DEP REF ? Location: HO.LNP ?Disch: ? ----- ------- SPEC : [id number] ? RECD: 07/20/24 ? STATUS: ??SOUT ? REQ NUM: [id number] ? NIYA: 07/19/24 ? SUBM DR: ANA [...] OF REPORT ? us Ana Luisa Scruggs [facility] CYTOLOGY ORDERABLES F inal Result [facility] [address] [place] [address] [phone] * Hepatitis C Antibody with Reflex to HCV, RNA, Quantitative, Real-Time PCR (05/13/2024 11:02 AM EST) Hepatitis C Antibody Nonreactive Nonreactive [facility] Comment:Antibodies to HCV no t detected; does not exclude early acuteHCV infection. Blood Venous blood specimen / Unknown 05/13/2024 11:02 AM EST 05/13/2024 2:12 PM EST Baldev Dowling MD LAB BLOOD ORDERABL ES Final Result Performing Organization Address [facility]/ZIP Co de Phone Number [facility] [address] [place] [phone] * HIV-1/2 Antigen and Antibodies, Fourth Generation, with Reflexes (05/13/2024 11:02 AM EST) HIV AB/AG Nonreactive Nonreactive [facility] Comment:HIV-1 p24 Ag and/or HIV-1/HIV-2 Ab not detected.A test result that is nonreactive does not exclude thepossibility of exposure to or infection with HIV-1 and/orHIV-2. Nonreactive results in this assay for individualswith prior exposure to HIV-1 and/or HIV-2 may be due toantigen and antibody levels that are below the limit ofdetection of this assay.[employer] [place] [employer] HIV Ag/Ab Combo assay result andsupplemental assay results should be interpreted inconjunction with the patient's clinical presentation,history and other laboratory results. If the results areinconsistent with clinical evidence, additional testing issuggested to confirm the result. Blood Venous blood specimen / Unknown 05/13/2024 11:02 AM EST 05/13/2024 2:12 PM EST Baldev Dowling MD LAB BLOOD ORDERABL ES Final Result Performing Organization Address City/[facility]/ZIP Co de Phone Number [facility] [address] [place] [address] [phone] * Lipid Panel, Standard (05/13/2024 11:02 AM EST) Triglycerides 46 <150 mg/dL [facility] Comment:Desirable Triglyceri de: less than 150 mg/dLBorderline High Triglyceride 150-199 mg/dLHigh Triglyceride: 200-499 mg/dLVery High Triglyceride: greater than or equal to 5OO mg/dL Cholesterol 131 <200 mg/dL [facility] Comment:Desirable Cholestero l: less than 200 mg/dLBorderline High Cholesterol: 200-239 mg/dLHigh Cholesterol: greater than 239 mg/dL LDL Cholesterol Calculated 69 <100 mg/dL [facility] Comment:Desirable LDL: less than 100 mg/dLNear Optimal/Above Optimal LDL: 110- 129 mg/dLBorderline High LDL: 130-159 mg/dLHigh LDL: 160-189 mg/dLVery High LDL: greater than or equal to 190 mg/dL HDL Cholesterol 53 >40 mg/dL [facility] Comment:Desirable HDL: great er than 40 mg/dL Note: This HDL assay may give artificially low results in patients with liver disease. Blood Venous blood specimen / Unknown 05/13/2024 11:02 AM EST 05/13/2024 2:12 PM EST Baldev Dowling MD LAB BLOOD ORDERABL ES Final Result [facility] [address] [place] [phone] from Last 3 Months or Most Recently Relevant to Health Maintenance Insurance [employer] [facility] FULL (MEDICAID) Care Teams Biometry Teacher Relationship Specialty Start Date End Date Josselyn Gilmore ANP [address] [place] [address] PCP - General Family Medicine 06/14/19
[2024-09-20] VITALS (7 sets, daily range): BP systolic 113–145; BP diastolic 66–91; PULSE 85–95; RESP 16–18; TEMP 36.1–36.8; O2SAT 98–100; BMI 38.8
[2024-09-20 13:31] LABS: UPreg QC Valid YES; Urine Pregnancy NEGATIVE (NEGATIVE)
--- NOTE | 2024-09-20 13:57 | P.CONAN_ITS ---
HPI - Anesthesia Eval Consult details Narrative: 23 yo F presenting for a LEEP PMFSH Active Problems Active Problems: All Active Problems 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 (Acute) HGSIL (high grade squamous intraepithelial lesion) on Pap smear of cervix (Acute) Abdominal pain (Acute) Hallucinogenic mushrooms use disorder, mild (Acute) COVID-19 (Acute) Past Medical History Medical History No known health problems Family History Family History Maternal Grandmother Diabetes Colon cancer Family history of problems with anesthesia: No Surgical History Surgical History S/P laparoscopic cholecystectomy History of tonsillectomy History of Problems with Anesthesia: No Social History Social History Household Members: Family Housing: House Are you a primary tree care foreman to a significant other at home: No Do you presently have visiting nurse or other home services: No Alcohol intake: current Alcohol intake frequency: does not drink Comment: nausea much less Patient Tobacco Use Status: Current everyday Tobacco user Tobacco use type: Smokeless Tobacco Cigarettes Per Day: 2 Years Smoked: 3 e-Cigarette/Vaping Use: Currently Using Use of substances other than those prescribed or required for medical reasons: No Substance Use Type: Marijuana Have you been hit, kicked, punched, or otherwise hurt by someone within the past year? 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 Sexual orientation: Straight/Heterosexual Gender identity: Female Meds Allergies Allergy/AdvReac Type Severity Reaction Status Date / Time No Known Allergies Allergy Verified 09/20/24 13:14 Active Medications: Current Medications Lactated Ringer's (Lr) 1,000 mls @ 80 mls/hr IVCONT .[id number] ANGELIQUE Home Medications ?Medication ?Instructions ?Recorded ?Confirmed ?Last Taken ?Type No Known Home Meds 09/14/24 09/14/24 Unknown History Exam Exam Date and Time: 09/20/24 1358 Height,Weight and Vital Signs: Height 5 ft 6 in Weight 109 kg Last Vital Signs Temp 98.2 F 09/20/24 13:29 Pulse 90 09/20/24 13:29 Resp 18 09/20/24 13:29 BP 113/66 09/20/24 13:29 Pulse Ox 98 09/20/24 13:29 O2 Del Method Room Air 09/20/24 13:29 Pertinent Lab Results Pertinent Lab Results: Laboratory Tests 09/20/24 13:10 Urine Test NEGATIVE Airway Mallampati Class: I TM Dist: >3cm Neck ROM: Full Loose/Missing/Broken Teeth: No (patient denies any loose or broken teeth) Heart: S1S2 Lungs: CTAB Assessment and Plan Assessment Anesthesia Assessment: Anesthesia Plan Discussed and Chart Reviewed Final Anesthetic Review Family History of Problems with Anesthesia: No History of Problems with Anesthesia: No NPO: Yes ASA Class: II Final Preanesthetic Review: No Changes in Pt Med Stat, Meds/Allgs Chart Reviewed, Consent Obtained/Reviewed and Anes Risks/Benef Reviewed Patient Risk: Low Procedure Risk: Low Anesthetic Plan Anesthetic Plan: GA and Agree w/ Assess. and Plan Disposition: Standard PACU
[2024-09-20] MEDS: Lactated Ringers 1,000 ML 80 ML IVCONT (14:12)
--- NOTE | 2024-09-20 14:31 | MHC.SHP ---
Pre-Procedural Eval Section A - 24 Hr Update-Section A only Date of Service: 09/20/24 The patient is an INPATIENT: No Changes since office visit: No Cold of Flu in the past 2 weeks, No New Medical Problems, No Changes in Medication and No Patient answered all questions The patient has been examined within 24 hours of the surgical procedure. 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 No changes have occurred unless specified. Time Spent With Patient Time: Total time managing care of this patient today ____ minutes.
--- NOTE | 2024-09-20 14:58 | PM.OP ---
Brief Operative Note Date of Service: 09/20/24 Pre-op diagnosis: CHEMA 3 Post-op diagnosis: same Procedure: LEEP with post LEEP ECC Surgeon: Kings Alexander MD Anesthesia: GLMA and other (Paracervical block) Was an Fast Food Crew Member used for this Procedure?: No Estimated blood loss (mL): 0 Pathology: other (Cervical LEEP with 12:00 suture, Post LEEP ECC) Condition: stable Disposition: other (Home)
--- NOTE | 2024-09-20 14:59 | P.OP_ITS ---
Operative Note Operative Note Date of Service: 09/20/24 Narrative: Pre op diagnosis: CHEMA 3 Operation: Colposcopy, Loop electrical excision procedure, post LEEP ECC Postop diagnosis: the same Quantitative blood loss: 10 cc Surgeon: Kings Alexander MD, FACOG Acute Care Physical Therapist: None Pathology: Cervical LEEP, post LEEP endo cervical curettage Complications: none Anesthesia: GLMA and Para cervical block Procedure: The patient was put in a dorsal lithotomy position, scrubbed and draped in the u sual sterile fashion. A speculum was inserted inside the patient's vagina. The cervix is assessed using the colposcope with acetic acid , the lesions were seen, and at least 1 cm of the squamocolumnar junction was observed. 20 x 5 mm size loop was selected based upon the diameter of the lesion. Lugol solution was used to outline the lesions and area of the transformation zone order to be removed 10 cc of xylocaine with epinephrine were injected submucosally into the surface of the cervix (ectocervix) at the 3, 6, 9, and 12 o'clock positions. The electrosurgical generator is set at 40 chacon on blend 1. The loop is carefully passed simultaneously around and under the transformation zone, in order to ensure excising it making sure the lesion between 9 and 12:00 is at least 5 mm far from the specimen margins . The loop was allowed to glide through the cervix from one side to the other, allowing the cutting current to divide the tissue. An post LEEP endo cervical curettage is performed following completion of excision, and hemostasis is obtained with a Ball electrode or regular tip cautery. At the end, Monsel's solution was applied to the cone bed. The patient tolerated the procedure well and, all instruments were taken out of the patient vaginal cavity, and the patient was transferred to the PACU in stable condition.
[2024-09-20] MEDS: ondansetron HCL 4 MG/2 ML VIAL IVPUSH (15:20)
== END 2024-09-20 15:45 | disposition home or self-care (01) ==
PROVIDERS: PCP Nurse Practitioner Primary Care; Visit Provider Obstetrics & Gynecology
PROC: 0UBC7ZZ Excision of Cervix, Via Natural or Artificial Opening (ICD-10-PCS; CPT 57522; principal; 2024-09-20 14:30)
DX: N87.0 Mild cervical dysplasia (principal); Z90.49 Acquired absence of other specified parts of digestive tract; Z87.891 Personal history of nicotine dependence
CPT/HCPCS: 57461; 81025; 88305; 88307; 88341; 88342; J1100; J2003; J2004; J2405; J2704; J3010

== ENCOUNTER → 2024-09-20 12:49 | Outpatient (BNV) | payer OTHER, SELFPAY | PROVIDERS: PCP Nurse Practitioner Primary Care; Visit Provider Obstetrics & Gynecology | DX: D06.9 Carcinoma in situ of cervix, unspecified (principal) | CPT/HCPCS: 57461 ==

== ENCOUNTER 2024-09-28 10:18 | Outpatient (AMB) | payer OTHER, SELFPAY ==
--- NOTE | 2024-09-28 10:22 | A.OFFVIS_ITS ---
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 The patient has no complaints except for vaginal discharge associated with foul odor. The pathology showed the following: A. Cervix, LEEP conization: -Focal low grade squamous intraepithelial lesion (mild dysplasia, CHEMA 1). -Ectocervical margin free of dysplasia. -Endocervical margin free of dysplasia. -Deep (radial) margin free of dysplasia. -Squamous and endocervical glandular mucosa with marked inflammation, reactive changes, and biopsy site changes. -No evidence of residual high-grade dysplasia. B. Endocervix, post LEEP curettage: -Endocervical glandular mucosa; negative for dysplasia [facility] Medical History (Updated 09/28/24 @ 10:30 by Kings Alexander MD) HGSIL (high grade squamous intraepithelial lesion) on Pap smear of cervix No known health problems Surgical History S/P laparoscopic cholecystectomy History of tonsillectomy Family History Maternal Grandmother Diabetes Colon cancer Social History Household Members: Family Housing: House Are you a primary technical healthcare consultant to a significant other at home: No Do you presently have visiting nurse or other home services: No Alcohol intake: current Alcohol intake frequency: does not drink Comment: nausea much less Patient Tobacco Use Status: Current everyday Tobacco user Tobacco use type: Smokeless Tobacco Cigarettes Per Day: 2 Years Smoked: 3 e-Cigarette/Vaping Use: Currently Using Substance Use Type: Marijuana service: No 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 Sexual orientation: Straight/Heterosexual Gender identity: Female Review of Systems Const All systems reviewed & are unremarkable except as noted in HPI and below Reports as per HPI and Reports no additional complaints GI Reports no additional complaints Reports no additional complaints Physical Exam Vital Signs: BMI result Body Mass Index 38.7 General: Yes no CVA tenderness External Female Exam: normal external appearance and normal appearance of the urethra Speculum Exam - Vagina: normal appearance of the vagina, normal palpation, no lesions and no masses Speculum Exam - Cervix: normal appearance of the cervix, normal palpation, no lesions, no masses and nontender Bimanual exam- vagina & uterus: normal bimanual exam, normal palpation, uterine size normal, normal palpation, uterine shape normal, No Cervical tenderness present and non-tender Bimanual Exam- Adnexa, other: normal adnexae Back/Spine/Pelvis Back: no CVA tenderness Assessment & Plan Assessment & Plan (1) 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: Comment: Status post LEEP with CHEMA 1 and the free margin and no evidence of high-grade lesion Code(s): D06.9 - Carcinoma in situ of cervix, unspecified Category: Medical Plan: Discussed with the patient the results the pathology of the excisional specimen being negative for high-grade lesion, explained that the the patient that a negative excisional specimen raises the concern that the lesion was missed , in addition discussed with the patient that the risk of recurrent cervical dysplasia is significantly higher and can occur years after treatment, the meantime to recurrence is around 4 years and therefore , the recommended management is similar to those with positive margins, specifically in patients who are not interested in future fertility (the patient is status post sterilization), options of treatment include either repeat LEEP cone with post cone ECC or observation with HPV based testing/colposcopy and ECC at 6 months. All pros and cons, risks and benefits of each were discussed with the patient, the patient decided to schedule a six-months repeat co testing/colpo/biopsy/ECC. Instructions given the patient to schedule a six-month appointment for co testing/colpo/biopsy/ECC. All questions answered, the patient verbalized understanding (2) Bacterial vaginosis: Code(s): N76.0 - Acute vaginitis; B96.89 - Other specified bacterial agents as the cause of diseases classified elsewhere Category: Medical Plan: GC and chlamydia cultures with BV panel taken. Will treat with Flagyl 500 mg p.o. b.i.d. x 7 days, Instructions given to the patient to refrain from sexual activity or to use condoms consistently and correctly during the BV treatment regimen, not to douch, it might increase the risk for relapse, and to call if symptoms persist or recur. Medications: New 2 metronidazole 500 mg PO BID 7 days 14 tabs 0RF Coding Level of Care Code Est Pt Level 3 (98743) Diagnoses 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 D06.9 Bacterial vaginosis N76.0; B96.89
[2024-09-28 10:24] VITALS: BP 126/84; BMI 38.7
--- OUTSIDE RECORDS SUMMARY | 2024-09-28 10:56 | XMS_ITS | Clinical Summary ---
Author Organization [facility] ity Address [address] [place] [address] Care Team Providers Care Piggyback Clerk Name Role Phone Unavailable Primary Care Provider [...]
== END 2024-09-28 10:35 | disposition home or self-care (01) ==
LOC: HO.HWS 10:18
PROVIDERS: PCP Nurse Practitioner Primary Care; Visit Provider Obstetrics & Gynecology
DX: D06.9 Carcinoma in situ of cervix, unspecified (principal); N76.0 Acute vaginitis; B96.89 Other specified bacterial agents as the cause of diseases classified elsewhere
CPT/HCPCS: 99213

== ENCOUNTER 2024-09-28 10:18 | Outpatient (REF) | payer OTHER, SELFPAY ==
[2024-09-28 13:18] LABS: Bacterial Vaginosis PCR POSITIVE (Negative); Candida Group PCR NOT DETECTED (Not Detect); Candida glab krusei PCR NOT DETECTED (Not Detect); Trichomonas vaginalis PCR NOT DETECTED (Not Detect)
[2024-09-28 17:01] LABS: CT PCR NOT DETECTED (Not Detect.); NG PCR NOT DETECTED (Not Detect.)
== END 2024-09-28 10:19 | disposition home or self-care (01) ==
LOC: HO.LNP 10:18
PROVIDERS: PCP Nurse Practitioner Primary Care; Visit Provider Obstetrics & Gynecology
DX: D06.9 Carcinoma in situ of cervix, unspecified (principal); N76.0 Acute vaginitis
CPT/HCPCS: 81515; 87491; 87591